=== PATIENT | female | born 1955 | race Two or more races ===

== ENCOUNTER → 2017-12-22 | Outpatient (CLI) | payer OTHER ==
[~2017-12-22] MED LIST: LIDOCAINE 2%/EPI 1:100,000 20 ML VIAL. IJ
== END | disposition home or self-care (01) ==
LOC: US 09:27
DX: N63.20 Unspecified lump in the left breast, unspecified quadrant (principal)
CPT/HCPCS: 76942; 77065; 88305

== ENCOUNTER 2020-11-19 13:30 | Inpatient (IN) | payer OTHER ==
[~2020-11-19] VITALS: Ht 162.6 cm; Wt 92.0 kg
--- NOTE | 2020-11-19 14:02 | PHYS DOC ---
Adult General Chief Complaint Chief Complaint: CHEST PAIN-CARDIAC NATURE HPI HPI Patient is a 64 year old with a past medical history of hypertension, diabetes and hyperlipidemia presents emergency department complaining of new onset of chest pain. Patient states that last evening while she was lying in bed she had a new onset of 3 out of 10 substernal chest pain without any significant radiation. Patient notes that the pain continued today and she felt uneasy sensation and heaviness in her chest Denies any nausea, vomiting, fever, chills, shortness of breath or dizziness. Review of Systems Review of Systems Constitutional: Denies fever or chills [] Eyes: Denies change in visual acuity, redness, or eye pain [] HENT: Denies nasal congestion or sore throat [] Respiratory: Denies cough or shortness of breath [] Cardiovascular: No additional information not addressed in HPI [] GI: Denies abdominal pain, nausea, vomiting, bloody stools or diarrhea [] : Denies dysuria or hematuria [] Musculoskeletal: Denies back pain or joint pain [] Integument: Denies rash or skin lesions [] Neurologic: Denies headache, focal weakness or sensory changes [] Endocrine: Denies polyuria or polydipsia [] All other systems were reviewed and found to be within normal limits, except as documented in this note. Current Medications Current Medications Current Medications Medications (Trade) Dose Ordered Sig/Dennise Start Time Stop Time Status Last Admin Dose Admin Ceftriaxone Sodium (Rocephin) 1 gm 1X ONCE 11/19/20 14:45 11/19/20 14:46 DC 11/19/20 14:44 1 GM Morphine Sulfate (Morphine Sulfate) 4 mg 1X ONCE 11/19/20 14:45 11/19/20 14:46 DC Sodium Chloride 1,000 ml @ 1,000 mls/hr 1X ONCE 11/19/20 14:45 11/19/20 15:44 DC 11/19/20 14:44 1,000 MLS/HR Allergies Allergies Allergies Coded Allergies Type Severity Reaction Last Updated Verified No Known Drug Allergies 11/19/20 No Physical Exam Physical Exam Constitutional: Well developed, well nourished, no acute distress, non-toxic appearance. [] HENT: Normocephalic, atraumatic, bilateral external ears normal, oropharynx moist, no oral exudates, nose normal. [] Eyes: PERRLA, EOMI, conjunctiva normal, no discharge. [] Neck: Normal range of motion, no tenderness, supple, no stridor. [] Cardiovascular:Heart rate regular rhythm, no murmur [] Lungs & Thorax: Bilateral breath sounds clear to auscultation [] Abdomen: Bowel sounds normal, soft, no tenderness, no masses, no pulsatile masses. [] Skin: Warm, dry, no erythema, no rash. [] Back: No tenderness, no CVA tenderness. [] Extremities: No tenderness, no cyanosis, no clubbing, ROM intact, no edema. [] Neurologic: Alert and oriented X 3, normal motor function, normal sensory function, no focal deficits noted. [] Psychologic: Affect normal, judgement normal, mood normal. [] Current Patient Data Vital Signs Vital Signs Date Time Temp Pulse Resp B/P (MAP) Pulse Ox O2 Delivery O2 Flow Rate FiO2 11/19/20 13:35 98.2 93 18 191/97 (128) 100 Room Air 98.2 Lab Values Laboratory Tests Test 11/19/20 13:44 11/19/20 14:28 White Blood Count 18.3 x10^3/uL (4.0-11.0) H Red Blood Count 3.77 x10^6/uL (3.50-5.40) Hemoglobin 10.4 g/dL (12.0-15.5) L Hematocrit 30.7 % (36.0-47.0) L Mean Corpuscular Volume 81 fL (79-100) Mean Corpuscular Hemoglobin 27 pg (25-35) Mean Corpuscular Hemoglobin Concent 34 g/dL (31-37) Red Cell Distribution Width 13.7 % (11.5-14.5) Platelet Count 283 x10^3/uL (140-400) Neutrophils (%) (Auto) 79 % (31-73) H Lymphocytes (%) (Auto) 14 % (24-48) L Monocytes (%) (Auto) 6 % (0-9) Eosinophils (%) (Auto) 1 % (0-3) Basophils (%) (Auto) 0 % (0-3) Neutrophils # (Auto) 14.4 x10^3/uL (1.8-7.7) H Lymphocytes # (Auto) 2.5 x10^3/uL (1.0-4.8) Monocytes # (Auto) 1.0 x10^3/uL (0.0-1.1) Eosinophils # (Auto) 0.2 x10^3/uL (0.0-0.7) Basophils # (Auto) 0.1 x10^3/uL (0.0-0.2) Platelet Estimate Pending Sodium Level 130 mmol/L (136-145) L Potassium Level 4.1 mmol/L (3.5-5.1) Chloride Level 94 mmol/L (98-107) L Carbon Dioxide Level 25 mmol/L (21-32) Anion Gap 11 (6-14) Blood Urea Nitrogen 41 mg/dL (7-20) H Creatinine 3.3 mg/dL (0.6-1.0) H Estimated GFR (Cockcroft-Gault) 14.1 Glucose Level 118 mg/dL (70-99) H Lactic Acid Level 0.5 mmol/L (0.4-2.0) Calcium Level 9.0 mg/dL (8.5-10.1) Magnesium Level 2.7 mg/dL (1.8-2.4) H Troponin I Quantitative < 0.017 ng/mL (0.000-0.055) Lipase 227 U/L (73-393) Procalcitonin < 0.10 ng/mL (0.00-0.10) Urine Collection Type Unknown Urine Color Yellow Urine Clarity Clear Urine pH 7.0 (<5.0-8.0) Urine Specific Stewart <=1.005 (1.000-1.030) Urine Protein 100 mg/dL (NEG-TRACE) Urine Glucose (UA) Negative mg/dL (NEG) Urine Ketones (Stick) Negative mg/dL (NEG) Urine Blood Large (NEG) Urine Nitrite Negative (NEG) Urine Bilirubin Negative (NEG) Urine Urobilinogen Dipstick 0.2 mg/dL (0.2 mg/dL) Urine Leukocyte Esterase Trace (NEG) Urine RBC Tntc /HPF (0-2) Urine WBC 5-10 /HPF (0-4) Urine Squamous Epithelial Cells Few /LPF Urine Bacteria 0 /HPF (0-FEW) Laboratory Tests 11/19/20 13:44 Laboratory Tests 11/19/20 13:44 EKG EKG [] Radiology/Procedures Radiology/Procedures [] Course & Med Decision Making Course & Med Decision Making Pertinent Labs and Imaging studies reviewed. (See chart for details) 64-year-old female presented emergency department with new onset of anterior chest pain. Will obtain ACS rule out and chest x-ray to rule out. Patient's initial work-up was negative for evidence of acute cardiac injury however she did have an elevated creatinine 3.3 and elevated white blood cell count and nitrogen area which is raised concern for urosepsis. I had an extensive discussion with the patient and family member at this time we will plan to admit. Patient is already concerned on antibiotics and given IV fluids. Dragon Disclaimer Dragon Disclaimer This electronic medical record was generated, in whole or in part, using a voice recognition dictation system. Departure Departure Impression: Primary Impression: Acute kidney failure Disposition: ADMITTED INPT THIS HOSP Condition: GUARDED Referrals: JOSE CARTAGENA MD (PCP) ISH MATHEW MD Nov 19, 2020 14:02
[2020-11-19 14:03] LABS: BASO # 0.1 x10^3/uL (0.0-0.2); BASO % 0 % (0-3); EOS # 0.2 x10^3/uL (0.0-0.7); EOS % 1 % (0-3); HEMATOCRIT 30.7 % (36.0-47.0); HEMOGLOBIN 10.4 g/dL (12.0-15.5); LYMPH # 2.5 x10^3/uL (1.0-4.8); LYMPH % 14 % (24-48); MEAN CORPUSCULAR HEMOGLOBIN 27 pg (25-35); MEAN CORPUSCULAR HGB CONC 34 g/dL (31-37); MEAN CORPUSCULAR VOLUME 81 fL (79-100); MONO % 6 % (0-9); NEUT # 14.4 x10^3/uL (1.8-7.7); NEUT % 79 % (31-73); PLATELET COUNT 283 x10^3/uL (140-400); RED BLOOD COUNT 3.77 x10^6/uL (3.50-5.40); RED CELL DISTRIBUTION WIDTH 13.7 % (11.5-14.5); WHITE BLOOD COUNT 18.3 x10^3/uL (4.0-11.0)
[2020-11-19 14:07] LABS: CREATININE 3.3 mg/dL (0.6-1.0); GFR 14.1; POTASSIUM 4.1 mmol/L (3.5-5.1)
[2020-11-19 14:08] LABS: MAGNESIUM 2.7 mg/dL (1.8-2.4)
--- NOTE | 2020-11-19 14:08 | RAD ---
Study: XR CHEST 1V Indication: Chest pain. Comparison: None. Findings: The cardiomediastinal silhouette is enlarged. No overt central vascular congestion. No large effusion or pneumothorax. Mildly increased lung markings but symmetric and favored in part related to broncho vascular crowding from shallow lung volumes. Impression: Enlargement of the cardiomediastinal silhouette. No radiographic manifestations of overt failure/volu me overload. Electronically signed by: ERVIN BUSCH MD (11/19/2020 2:05 PM) [facility]
[2020-11-19 14:40] LABS: BILIRUBIN,URINE NEGATIVE (NEG); CLARITY,URINE CLEAR; COLOR,URINE YELLOW; NITRITE,URINE NEGATIVE (NEG); PROTEIN,URINE 100 mg/dL (NEG-TRACE); UROBILINOGEN,URINE 0.2 mg/dL (0.2 mg/dL)
[2020-11-19] MEDS ORDERED: MORPHINE SULFATE 4 MG/ML VIAL. IV ONE (14:45)
[2020-11-19] MEDS ORDERED: IV NORMAL SALINE 1000ML BAG 1,000 ML IV ONE ×2 (14:45)
[2020-11-19] MEDS ORDERED: cefTRIAXone IV Push 1 GM VIAL. IVP ONE (14:45)
[2020-11-19 14:46] LABS: BACTERIA,URINE 0 /HPF (0-FEW); RBC,URINE TNTC /HPF (0-2)
--- NOTE | 2020-11-19 16:03 | EKG ---
[facility] [address] [place] [address] Test Date: 2020-11-19 Test Time: 13:37:23 Pat Name: SAPPHIRE XIONG Department: Room: Gender: F [employer]: : 1955 Requested By: ISH MATHEW Order Number: [id number] Reading MD: Measurements Intervals Furman Rate: 91 P: 34 NE: 182 QRS: -3 QRSD: 66 T: 34 QT: 358 QTc: 442 Interpretive Statements SINUS RHYTHM LEFTWARD AXIS LOW VOLTAGE ABNORMAL ECG RI6.02 No previous ECG available for comparison
--- NOTE | 2020-11-19 16:55 | RAD ---
Exam: CT of abdomen without contrast INDICATION: Renal stone TECHNIQUE: Sequential axial images through the abdomen and pelvis obtained without IV contrast. Sagit maria ines and coronal reformatted images were reconstructed from the axial data and reviewed. Comparisons: None FINDINGS: Heart size is normal. There is a moderate-sized pericardial effusion. Visualized lung bases are clear . No effusion. Evaluation of solid organs is limited secondary to noncontrast technique. Liver, spleen, pancreas and adrenals are unremarkable. Gallstones in the gallbladder which is otherwi se unremarkable. Vague hypoattenuating lesion at the upper pole of the right kidney measuring approximately 1.6 cm ser ies 3 image 67. No renal or ureteral calculi are identified. There is mild stranding at adjacent to t he left renal pelvis. Bladder is decompressed not well evaluated. Uterus is absent. No abnormal adnexal mass. Large and small bowel are unremarkable. Appendix is normal. No free intra-abdominal air or fluid. Abdominal aorta has a normal course and caliber. No enlarged intra-abdominal lymph nodes. No suspicious osseous lesions or acute fractures. IMPRESSION: 1. Mild stranding adjacent to the left renal pelvis. Correlate with urinalysis for infection. 2. No renal or ureteral calculi. No evidence for obstructive uropathy. 3. Vague mildly hyperattenuating lesion at the upper pole of the right kidney measuring 1.6 cm. Furt her evaluation with nonemergent/outpatient renal protocol CT or MRI is recommended. 4. Moderate-sized Pericardial effusion. Exposure: One or more of the following in the visualized dose reduction techniques were utilized for this examination: 1. Automated exposure control 2. Adjustment of the MA and/or KV according to patient size 3. Use of iterative of reconstructive technique Electronically signed by: Roly Goodman MD (11/19/2020 4:53 PM) [facility]
[2020-11-19] MEDS ORDERED: MORPHINE SULFATE 2 MG/ML VIAL. IV PRN (17:15)
[2020-11-19] MEDS ORDERED: ONDANSETRON PF 4 MG/2 ML VIAL. IV PRN (17:15)
[2020-11-19 17:35] LABS: % EOS 2 % (0-5); % LYMPHS 10 % (24-48); % MONOS 4 % (0-10); % SEGS 84 % (35-66); PLT ESTIMATE ADEQUATE (ADEQUATE)
[2020-11-19 19:00] VITALS: BP 166/74
--- NOTE | 2020-11-19 19:32 | NUR ---
Pt. just arrived from Ed w/ Acute renal failure. Denied any more chest pain. Spouse @ BS in ED. Citizen Of [place] speaking and can make needs known.
[2020-11-20 03:00] VITALS: BP 133/65
[2020-11-20 07:00] VITALS: BP 142/75
[2020-11-20 07:27] LABS: BASO # 0.1 x10^3/uL (0.0-0.2); BASO % 1 % (0-3); EOS # 0.2 x10^3/uL (0.0-0.7); EOS % 1 % (0-3); HEMATOCRIT 28.3 % (36.0-47.0); HEMOGLOBIN 9.3 g/dL (12.0-15.5); LYMPH % 13 % (24-48); MEAN CORPUSCULAR HEMOGLOBIN 27 pg (25-35); MEAN CORPUSCULAR HGB CONC 33 g/dL (31-37); MEAN CORPUSCULAR VOLUME 82 fL (79-100); MONO # 0.9 x10^3/uL (0.0-1.1); MONO % 6 % (0-9); NEUT # 11.7 x10^3/uL (1.8-7.7); NEUT % 79 % (31-73); PLATELET COUNT 286 x10^3/uL (140-400); RED BLOOD COUNT 3.43 x10^6/uL (3.50-5.40); RED CELL DISTRIBUTION WIDTH 13.7 % (11.5-14.5); WHITE BLOOD COUNT 14.8 x10^3/uL (4.0-11.0)
[2020-11-20 07:51] LABS: ALBUMIN 2.6 g/dL (3.4-5.0); ALBUMIN/GLOBULIN RATIO 0.5 (1.0-1.7); CALCIUM 8.6 mg/dL (8.5-10.1); CREATININE 3.5 mg/dL (0.6-1.0); GFR 13.2; POTASSIUM 4.2 mmol/L (3.5-5.1); TOTAL BILIRUBIN 0.3 mg/dL (0.2-1.0)
[2020-11-20 11:00] VITALS: BP 144/73
--- NOTE | 2020-11-20 13:13 | NUR ---
SW following for discharge planning. Spoke with RN and reviewed chart. Pt from home with spouse. Pt currently on room air, regular diet, IV pain medication. Pt self-pay, [facility] is following. Discharge plan is home, self-care. SW following as needed.
--- NOTE | 2020-11-20 13:54 | PDOC1 ---
History and Physical Date of Admission Date of Admission DATE: 11/20/20 TIME: 13:53 Identification/Chief Complaint Chief Complaint Chest pain Source Source: Caregiver, Chart review, Patient History of Present Illness History of Present Illness Ms Ledesma is a 64 yo martiniquais speaking female w/ PMHx HTN, HLD, DM2 who presents to ED C/O chest pressure 3/10 substernal, no radiation while she was laying down on 11/18/20 in the evening. She awoke on 11/19 and it persisted with associated heaviness. She came to ED at the insistence of her family. Patient notes that the pain resolved today but she felt uneasy sensation and heaviness in her chest Denies any nausea, vomiting, fever, chills, shortness of breath or dizziness. No fever or chills. Denies cough, hemoptysis. Does not use NSAIDs, and has been following with [facility] and recently has a new PCP, she is also on Me tformin and Losartan. No history of renal disease to her knowledge but does note a "spot" on her right kidney she has been told about. Patient also states her urine has been darker then normal for the last 2 weeks, no specific dysuria. Noted in ED with lab abnormalities with WBC 18.3, Hb 10.4, platelets 283, NA 130, K4.1, BUN 41, CR 3.3, glucose 118, lipase 0, troponin 0, procalcitonin 0. UA with large blood and positive leukocyte esterase. EKG normal sinus rhythm with a leftward axis. Chest radiograph with increased lung markings. CT abdomen/pelvis mild stranding adjacent to the left renal pelvis, no renal or ureteral calculi. No evidence for obstructive uropathy. Vague mildly hyperattenuating lesion at the upper pole of the right kidney measuring 1.6 cm. Further evaluation with nonemergent/outpatient renal protocol CT or MRI is recommended. Moderate-sized Pericardial effusion. Admitted for further care. Past Medical History Cardiovascular: HTN, Hyperlipidemia Endocrine: Diabetes Past Surgical History Past Surgical History: Hysterectomy Family History Family History: Diabetes Social History Smoke: No ALCOHOL: none Drugs: None Current Problem List Problem List Problems Medical Problems: (1) Acute kidney failure Status: Acute Current Medications Current Medications Current Medications Ceftriaxone Sodium (Rocephin) 1 gm 1X ONCE IVP Last administered on 11/19/20at 14:44; Start 11/19/20 at 14:45; Stop 11/19/20 at 14:46; Status DC Morphine Sulfate (Morphine Sulfate) 4 mg 1X ONCE IV ; Start 11/19/20 at 14:45; Stop 11/19/20 at 14:46; Status DC Sodium Chloride 1,000 ml @ 1,000 mls/hr 1X ONCE IV Last administered on 11/19/20at 14:44; Start 11/19/20 at 14:45; Stop 11/19/20 at 15:44; Status DC Sodium Chloride 1,000 ml @ 1,000 mls/hr 1X ONCE IV Last administered on 11/19/20at 14:44; Start 11/19/20 at 14:45; Stop 11/19/20 at 15:44; Status DC Ondansetron HCl (Zofran) 4 mg PRN Q8HRS PRN IV NAUSEA/VOMITING; Start 11/19/20 at 17:15; Stop 11/20/20 at 17:14 Morphine Sulfate (Morphine Sulfate) 2 mg PRN Q2HR PRN IV PAIN; Start 11/19/20 at 17:15; Stop 11/20/20 at 17:14 Allergies Allergies: Coded Allergies: No Known Drug Allergies (Unverified , 11/19/20) ROS General: YES: Fatigue, Malaise; No: Chills, Night Sweats, Appetite, Other PSYCHOLOGICAL ROS: YES: Anxiety; No: Behavioral Disorder, Concentration difficultie, Decreased libido, Depression, Disorientation, Hallucinations, Hostility, Irritablity, Memory difficulties, Mood Swings, Obsessive thoughts, Physical abuse, Sexual abuse, Sleep disturbances, Suicidal ideation, Other Eyes: No Blurry vision, No Decreased vision, No Double vision, No Dry eyes, No Excessive tearing, No Eye Pain, No Itchy Eyes, No Loss of vision, No Photophobia, No Scotomata, No Uses contacts, No Uses glasses, No Other HEENT: No: Heacaches, Visual Changes, Hearing change, Nasal congestion, Nasal discharge, Oral lesions, Sinus pain, Sore Throat, Epistaxis, Sneezing, Snoring, Tinnitus, Vertigo, Vocal changes, Other ALLERGY AND IMMUNOLOGY: No: Hives, Insect Bite Sensitivity, Itchy/Watery Eyes, Nasal Congestion, Post Nasal Drip, Seasonal Allergies, Other Hematological and Lymphatic: No: Bleeding Problems, Blood Clots, Blood Transfusions, Brusing, Night Sweats, Pallor, Swollen Lymph Nodes, Other ENDOCRINE: No: Breast Changes, Galactorrhea, Hair Pattern Changes, Hot Flashes, Malaise/lethargy, Mood Swings, Palpitations, Polydipsia/polyuria, Skin Changes, Temperature Intolerance, Unexpected Weight Changes, Other Breast: No New/Changing Breast Lumps, No Nipple changes, No Nipple discharge, No Other Respiratory: No: Cough, Hemoptysis, Orthopnea, Pleuritic Pain, Shortness of breath, SOB with excertion, Sputum Changes, Stridor, Tachypnea, Wheezing, Other Cardiovascular: No Chest Pain, No Palpitations, No Orthopnea, No Paroxysmal Noc. Dyspnea, No Edema, No Lt Headedness, No Other Gastrointestinal: No Nausea, No Vomiting, No Abdominal Pain, No Diarrhea, No Constipation, No Melena, No Hematochezia, No Other Genitourinary: No Dysuria, No Frequency, No Incontinence, No Hematuria, No Retention, No Discharge, No Urgency, No Pain, No Flank Pain, No Other, No , No , No , No , No , No , No Musculoskeletal: No Gait Disturbance, No Joint Pain, No Joint Stiffness, No Joint Swelling, No Muscle Pain, No Muscular Weakness, No Pain In:, No Swelling In:, No Other Neurological: No Behavorial Changes, No Bowel/Bladder ControlChng, No Confusion, No Dizziness, No Gait Disturbance, No Headaches, No Impaired Coord/balance, No Memory Loss, No Numbness/Tingling, No Seizures, No Speech Problems, No Tremors, No Visual Changes, No Weakness, No Other Skin: No Dry Skin, No Eczema, No Hair Changes, No Lumps, No Mole Changes, No Mottling, No Nail Changes, No Pruritus, No Rash, No Skin Lesion Changes, No Other, No Acne Physical Exam General: Alert, Oriented X3, Cooperative, No acute distress HEENT: Atraumatic, PERRLA, EOMI, Mucous membr. moist/pink Lungs: Clear to auscultation, Normal air movement Heart: S1S2, RRR, no thrills, no rubs, no gallops, no murmurs Abdomen: Normal bowel sounds, Soft, No tenderness, No hepatosplenomegaly, No masses Rectal Exam: not examined Extremities: No clubbing, No cyanosis, No edema, Normal pulses, No tenderness/swelling Skin: No rashes, No breakdown, No significant lesion Neuro: Normal gait, Normal speech, Strength at 5/5 X4 ext, Normal tone, Sensation intact, Cranial nerves 3-12 NL, Reflexes 2+ Psych/Mental Status: Mental status NL, Mood NL Vitals Vitals Vital Signs Date Time Temp Pulse Resp B/P (MAP) Pulse Ox O2 Delivery O2 Flow Rate FiO2 11/20/20 11:00 98.3 83 18 144/73 (96) 93 Room Air 98.3 Labs Labs Laboratory Tests Test 11/19/20 13:44 11/19/20 14:28 11/19/20 17:12 11/19/20 20:08 White Blood Count 18.3 x10^3/uL (4.0-11.0) Red Blood Count 3.77 x10^6/uL (3.50-5.40) Hemoglobin 10.4 g/dL (12.0-15.5) Hematocrit 30.7 % (36.0-47.0) Mean Corpuscular Volume 81 fL (79-100) Mean Corpuscular Hemoglobin 27 pg (25-35) Mean Corpuscular Hemoglobin Concent 34 g/dL (31-37) Red Cell Distribution Width 13.7 % (11.5-14.5) Platelet Count 283 x10^3/uL (140-400) Neutrophils (%) (Auto) 79 % (31-73) Lymphocytes (%) (Auto) 14 % (24-48) Monocytes (%) (Auto) 6 % (0-9) Eosinophils (%) (Auto) 1 % (0-3) Basophils (%) (Auto) 0 % (0-3) Neutrophils # (Auto) 14.4 x10^3/uL (1.8-7.7) Lymphocytes # (Auto) 2.5 x10^3/uL (1.0-4.8) Monocytes # (Auto) 1.0 x10^3/uL (0.0-1.1) Eosinophils # (Auto) 0.2 x10^3/uL (0.0-0.7) Basophils # (Auto) 0.1 x10^3/uL (0.0-0.2) Segmented Neutrophils % 84 % (35-66) Lymphocytes % 10 % (24-48) Monocytes % 4 % (0-10) Eosinophils % 2 % (0-5) Platelet Estimate Adequate (ADEQUATE) Sodium Level 130 mmol/L (136-145) Potassium Level 4.1 mmol/L (3.5-5.1) Chloride Level 94 mmol/L (98-107) Carbon Dioxide Level 25 mmol/L (21-32) Anion Gap 11 (6-14) Blood Urea Nitrogen 41 mg/dL (7-20) Creatinine 3.3 mg/dL (0.6-1.0) Estimated GFR (Cockcroft-Gault) 14.1 Glucose Level 118 mg/dL (70-99) Lactic Acid Level 0.5 mmol/L (0.4-2.0) Calcium Level 9.0 mg/dL (8.5-10.1) Magnesium Level 2.7 mg/dL (1.8-2.4) Troponin I Quantitative < 0.017 ng/mL (0.000-0.055) < 0.017 ng/mL (0.000-0.055) Lipase 227 U/L (73-393) Procalcitonin < 0.10 ng/mL (0.00-0.10) Urine Collection Type Unknown Urine Color Yellow Urine Clarity Clear Urine pH 7.0 (<5.0-8.0) Urine Specific Henderson <=1.005 (1.000-1.030) Urine Protein 100 mg/dL (NEG-TRACE) Urine Glucose (UA) Negative mg/dL (NEG) Urine Ketones (Stick) Negative mg/dL (NEG) Urine Blood Large (NEG) Urine Nitrite Negative (NEG) Urine Bilirubin Negative (NEG) Urine Urobilinogen Dipstick 0.2 mg/dL (0.2 mg/dL) Urine Leukocyte Esterase Trace (NEG) Urine RBC Tntc /HPF (0-2) Urine WBC 5-10 /HPF (0-4) Urine Squamous Epithelial Cells Few /LPF Urine Bacteria 0 /HPF (0-FEW) Glucose (Fingerstick) 133 mg/dL (70-99) Test 11/20/20 05:45 11/20/20 07:14 11/20/20 11:56 White Blood Count 14.8 x10^3/uL (4.0-11.0) Red Blood Count 3.43 x10^6/uL (3.50-5.40) Hemoglobin 9.3 g/dL (12.0-15.5) Hematocrit 28.3 % (36.0-47.0) Mean Corpuscular Volume 82 fL (79-100) Mean Corpuscular Hemoglobin 27 pg (25-35) Mean Corpuscular Hemoglobin Concent 33 g/dL (31-37) Red Cell Distribution Width 13.7 % (11.5-14.5) Platelet Count 286 x10^3/uL (140-400) Neutrophils (%) (Auto) 79 % (31-73) Lymphocytes (%) (Auto) 13 % (24-48) Monocytes (%) (Auto) 6 % (0-9) Eosinophils (%) (Auto) 1 % (0-3) Basophils (%) (Auto) 1 % (0-3) Neutrophils # (Auto) 11.7 x10^3/uL (1.8-7.7) Lymphocytes # (Auto) 2.0 x10^3/uL (1.0-4.8) Monocytes # (Auto) 0.9 x10^3/uL (0.0-1.1) Eosinophils # (Auto) 0.2 x10^3/uL (0.0-0.7) Basophils # (Auto) 0.1 x10^3/uL (0.0-0.2) Sodium Level 136 mmol/L (136-145) Potassium Level 4.2 mmol/L (3.5-5.1) Chloride Level 102 mmol/L (98-107) Carbon Dioxide Level 25 mmol/L (21-32) Anion Gap 9 (6-14) Blood Urea Nitrogen 39 mg/dL (7-20) Creatinine 3.5 mg/dL (0.6-1.0) Estimated GFR (Cockcroft-Gault) 13.2 BUN/Creatinine Ratio 11 (6-20) Glucose Level 112 mg/dL (70-99) Calcium Level 8.6 mg/dL (8.5-10.1) Total Bilirubin 0.3 mg/dL (0.2-1.0) Aspartate Amino Transf (AST/SGOT) 21 U/L (15-37) Alanine Aminotransferase (ALT/SGPT) 33 U/L (14-59) Alkaline Phosphatase 92 U/L (46-116) Total Protein 8.0 g/dL (6.4-8.2) Albumin 2.6 g/dL (3.4-5.0) Albumin/Globulin Ratio 0.5 (1.0-1.7) Glucose (Fingerstick) 127 mg/dL (70-99) 154 mg/dL (70-99) Laboratory Tests Test 11/19/20 14:28 11/19/20 17:12 11/19/20 20:08 11/20/20 05:45 Urine Collection Type Unknown Urine Color Yellow Urine Clarity Clear Urine pH 7.0 (<5.0-8.0) Urine Specific Henderson <=1.005 (1.000-1.030) Urine Protein 100 mg/dL (NEG-TRACE) Urine Glucose (UA) Negative mg/dL (NEG) Urine Ketones (Stick) Negative mg/dL (NEG) Urine Blood Large (NEG) Urine Nitrite Negative (NEG) Urine Bilirubin Negative (NEG) Urine Urobilinogen Dipstick 0.2 mg/dL (0.2 mg/dL) Urine Leukocyte Esterase Trace (NEG) Urine RBC Tntc /HPF (0-2) Urine WBC 5-10 /HPF (0-4) Urine Squamous Epithelial Cells Few /LPF Urine Bacteria 0 /HPF (0-FEW) Troponin I Quantitative < 0.017 ng/mL (0.000-0.055) Glucose (Fingerstick) 133 mg/dL (70-99) White Blood Count 14.8 x10^3/uL (4.0-11.0) Red Blood Count 3.43 x10^6/uL (3.50-5.40) Hemoglobin 9.3 g/dL (12.0-15.5) Hematocrit 28.3 % (36.0-47.0) Mean Corpuscular Volume 82 fL (79-100) Mean Corpuscular Hemoglobin 27 pg (25-35) Mean Corpuscular Hemoglobin Concent 33 g/dL (31-37) Red Cell Distribution Width 13.7 % (11.5-14.5) Platelet Count 286 x10^3/uL (140-400) Neutrophils (%) (Auto) 79 % (31-73) Lymphocytes (%) (Auto) 13 % (24-48) Monocytes (%) (Auto) 6 % (0-9) Eosinophils (%) (Auto) 1 % (0-3) Basophils (%) (Auto) 1 % (0-3) Neutrophils # (Auto) 11.7 x10^3/uL (1.8-7.7) Lymphocytes # (Auto) 2.0 x10^3/uL (1.0-4.8) Monocytes # (Auto) 0.9 x10^3/uL (0.0-1.1) Eosinophils # (Auto) 0.2 x10^3/uL (0.0-0.7) Basophils # (Auto) 0.1 x10^3/uL (0.0-0.2) Sodium Level 136 mmol/L (136-145) Potassium Level 4.2 mmol/L (3.5-5.1) Chloride Level 102 mmol/L (98-107) Carbon Dioxide Level 25 mmol/L (21-32) Anion Gap 9 (6-14) Blood Urea Nitrogen 39 mg/dL (7-20) Creatinine 3.5 mg/dL (0.6-1.0) Estimated GFR (Cockcroft-Gault) 13.2 BUN/Creatinine Ratio 11 (6-20) Glucose Level 112 mg/dL (70-99) Calcium Level 8.6 mg/dL (8.5-10.1) Total Bilirubin 0.3 mg/dL (0.2-1.0) Aspartate Amino Transf (AST/SGOT) 21 U/L (15-37) Alanine Aminotransferase (ALT/SGPT) 33 U/L (14-59) Alkaline Phosphatase 92 U/L (46-116) Total Protein 8.0 g/dL (6.4-8.2) Albumin 2.6 g/dL (3.4-5.0) Albumin/Globulin Ratio 0.5 (1.0-1.7) Test 11/20/20 07:14 11/20/20 11:56 Glucose (Fingerstick) 127 mg/dL (70-99) 154 mg/dL (70-99) Images Images Chest radiograph: The cardiomediastinal silhouette is enlarged. No overt central vascular congestion. No large effusion or pneumothorax. Mildly increased lung markings but symmetric and favored in part related to bronchovascular crowding from shallow lung volumes. Impression: Enlargement of the cardiomediastinal silhouette. No radiographic manifestations of overt failure/volume overload. CT abdomen/pelvis: Heart size is normal. There is a moderate-sized pericardial effusion. Visualized lung bases are clear. No effusion. Evaluation of solid organs is limited secondary to noncontrast technique. Liver, spleen, pancreas and adrenals are unremarkable. Gallstones in the gallbladder which is otherwise unremarkable. Vague hypoattenuating lesion at the upper pole of the right kidney measuring approximately 1.6 cm series 3 image 67. No renal or ureteral calculi are identified. There is mild stranding at adjacent to the left renal pelvis. Bladder is decompressed not well evaluated. Uterus is absent. No abnormal adnexal mass. Large and small bowel are unremarkable. Appendix is normal. No free intra- abdominal air or fluid. Abdominal aorta has a normal course and caliber. No enlarged intra-abdominal lymph nodes. No suspicious osseous lesions or acute fractures. IMPRESSION: 1. Mild stranding adjacent to the left renal pelvis. Correlate with urinalysis for infection. 2. No renal or ureteral calculi. No evidence for obstructive uropathy. 3. Vague mildly hyperattenuating lesion at the upper pole of the right kidney measuring 1.6 cm. Further evaluation with nonemergent/outpatient renal protocol CT or MRI is recommended. 4. Moderate-sized Pericardial effusion. VTE Prophylaxis Ordered VTE Prophylaxis Devices: No VTE Pharmacological Prophylaxi: Yes Assessment/Plan Assessment/Plan A/P: Chest pain - likely GERD, but with pericardial effusion on CT, will consult cardiology, check echo ALBERTO - likely vasomotor nephropathy. Nephrology consulted. Bladder scan prn, strict I?O . No casts reported in UA, Check Pr/Cr Abnormal UA - with LE, WBCs, left sided stranding, likely pyelonephritis, will give rocephin. IVF. Pain control Hematuria - No renal or ureteral calculi. Likely from UTI, will monitor Right renal lesion at the upper pole of the right kidney measuring 1.6 cm - informed follow up necessary Uncontrolled DM - sliding scale, will hold oral hypoglycemic agents for ALBERTO Anemia -likely of chronic disease HTN - prn antihypertensives Pericardial effusion- moderate reported on CT . Consult cardiology Leukocytosis - with tachycardia, will treat sepsis from UTI FEN - ADA diet PPX - heparin FULL CODE Dispo - inpatient Justifications for Admission Other Justification SHAY ALVES MD Nov 20, 2020 13:54
[2020-11-20] MEDS ORDERED: DEXTROSE 50% 25 GM / 50ML DISP.SYRIN. IV PRN (14:00)
--- NOTE | 2020-11-20 14:23 | PDOC2 ---
CONSULT Date of Consult Date of Consult DATE: 11/20/20 TIME: 14:09 Reason for Consult Reason for Consult: ALBERTO Identification/Chief Complaint Chief Complaint No complaints currently, chest pressure poa Source Source: Caregiver, Chart review, Patient History of Present Illness Reason for Visit: Pt is a 64 yo georgian speaking female, C/O chest pressure -Currently resolved. No SOB. Denies N/V/D. No abdominal pain. No F/C. Denies Cogh, hemoptysis . Denies any rash or joint pains Denies any urinary complaints. No gross hematuria , denies Hx of Kidney stones Denies use of NSAID's OTC meds /health supplements. Reports med for DM was changed recntly. She is also on Metformin and Losartan per her home med list No Fhx of CKD /ESRD or immunological disease. She reports she has never been told that she had any kidney issues . She has been following with [facility] and recently has a new PCP Denies DR, based on recent A1C DM is uncontrolled Past Medical History Past Medical History DM - Uncontrolled HTN Anemia No CAD, denies Dx of CHF, denies Nephrolithiasis Family History Family History Non contributory Social History No ALCOHOL: none Lives: with Family Current Problem List Problem List Problems Medical Problems: (1) Acute kidney failure Status: Acute Current Medications Current Medications Current Medications Ceftriaxone Sodium (Rocephin) 1 gm 1X ONCE IVP Last administered on 11/19/20at 14:44; Start 11/19/20 at 14:45; Stop 11/19/20 at 14:46; Status DC Morphine Sulfate (Morphine Sulfate) 4 mg 1X ONCE IV ; Start 11/19/20 at 14:45; Stop 11/19/20 at 14:46; Status DC Sodium Chloride 1,000 ml @ 1,000 mls/hr 1X ONCE IV Last administered on 11/19/20at 14:44; Start 11/19/20 at 14:45; Stop 11/19/20 at 15:44; Status DC Sodium Chloride 1,000 ml @ 1,000 mls/hr 1X ONCE IV Last administered on 11/19/20at 14:44; Start 11/19/20 at 14:45; Stop 11/19/20 at 15:44; Status DC Ondansetron HCl (Zofran) 4 mg PRN Q8HRS PRN IV NAUSEA/VOMITING; Start 11/19/20 at 17:15; Stop 11/20/20 at 17:14 Morphine Sulfate (Morphine Sulfate) 2 mg PRN Q2HR PRN IV PAIN; Start 11/19/20 at 17:15; Stop 11/20/20 at 17:14 Insulin Human Lispro (HumaLOG) 0-7 UNITS TIDWMEALS SQ ; Start 11/20/20 at 17:00 Dextrose (Dextrose 50%-Water Syringe) 12.5 gm PRN Q15MIN PRN IV SEE COMMENTS; Start 11/20/20 at 14:00 Allergies Allergies: Coded Allergies: No Known Drug Allergies (Unverified , 11/19/20) ROS Review of System As per HPI, rest of the ROS is negative Physical Exam Physical Exam Gen NAD, eating lunch HEEN OM mildly dry, anicteric Neck supple Lungs CTA , non labored CV RRR Abd Obese, NT, soft Neuro AXoX 3 , grossly normal Ext No edema, No cyanosis No wright, No cva or SP tenderness Psych stable mood Vital Signs Vital Signs Date Time Temp Pulse Resp B/P (MAP) Pulse Ox O2 Delivery O2 Flow Rate FiO2 11/20/20 11:00 98.3 83 18 144/73 (96) 93 Room Air 98.3 Assessment & Plan ALBERTO - ATN , Non Oliguric (per patient good uop) Supportive care, IVF , strict I/O, Bladder scan prn . No casts reported in UA, Check Pr/Cr ? UTI UA wbc's +, RBC, esterse + Standing on CT ? Pyelonephritis . management per Primary Micr hematuria - No renal or ureteral calculi. No evidence for obstructive uropathy. lesion at the upper pole of the right kidney measuring 1.6 cm. Further evaluation with nonemergent/outpatient renal protocol CT or MRI is recommended. ? UTI, Uncontrolled DM, monitor DM Uncontrolled - Hold Metformin Anemia- Decreasing Hgb , Elevated Narciso Pena, lambda but Ratio normal, SPEP- No M spike in 2019. Not sure if Fe studies etc done. Defer to primary HTN antihypertensives Pericardial effusion- moderate reported on CT . Consult cardiology Labs Labs Laboratory Tests Test 11/19/20 13:44 11/19/20 14:28 11/19/20 17:12 11/19/20 20:08 White Blood Count 18.3 x10^3/uL (4.0-11.0) Red Blood Count 3.77 x10^6/uL (3.50-5.40) Hemoglobin 10.4 g/dL (12.0-15.5) Hematocrit 30.7 % (36.0-47.0) Mean Corpuscular Volume 81 fL (79-100) Mean Corpuscular Hemoglobin 27 pg (25-35) Mean Corpuscular Hemoglobin Concent 34 g/dL (31-37) Red Cell Distribution Width 13.7 % (11.5-14.5) Platelet Count 283 x10^3/uL (140-400) Neutrophils (%) (Auto) 79 % (31-73) Lymphocytes (%) (Auto) 14 % (24-48) Monocytes (%) (Auto) 6 % (0-9) Eosinophils (%) (Auto) 1 % (0-3) Basophils (%) (Auto) 0 % (0-3) Neutrophils # (Auto) 14.4 x10^3/uL (1.8-7.7) Lymphocytes # (Auto) 2.5 x10^3/uL (1.0-4.8) Monocytes # (Auto) 1.0 x10^3/uL (0.0-1.1) Eosinophils # (Auto) 0.2 x10^3/uL (0.0-0.7) Basophils # (Auto) 0.1 x10^3/uL (0.0-0.2) Segmented Neutrophils % 84 % (35-66) Lymphocytes % 10 % (24-48) Monocytes % 4 % (0-10) Eosinophils % 2 % (0-5) Platelet Estimate Adequate (ADEQUATE) Sodium Level 130 mmol/L (136-145) Potassium Level 4.1 mmol/L (3.5-5.1) Chloride Level 94 mmol/L (98-107) Carbon Dioxide Level 25 mmol/L (21-32) Anion Gap 11 (6-14) Blood Urea Nitrogen 41 mg/dL (7-20) Creatinine 3.3 mg/dL (0.6-1.0) Estimated GFR (Cockcroft-Gault) 14.1 Glucose Level 118 mg/dL (70-99) Lactic Acid Level 0.5 mmol/L (0.4-2.0) Calcium Level 9.0 mg/dL (8.5-10.1) Magnesium Level 2.7 mg/dL (1.8-2.4) Troponin I Quantitative < 0.017 ng/mL (0.000-0.055) < 0.017 ng/mL (0.000-0.055) Lipase 227 U/L (73-393) Procalcitonin < 0.10 ng/mL (0.00-0.10) Urine Collection Type Unknown Urine Color Yellow Urine Clarity Clear Urine pH 7.0 (<5.0-8.0) Urine Specific [place] <=1.005 (1.000-1.030) Urine Protein 100 mg/dL (NEG-TRACE) Urine Glucose (UA) Negative mg/dL (NEG) Urine Ketones (Stick) Negative mg/dL (NEG) Urine Blood Large (NEG) Urine Nitrite Negative (NEG) Urine Bilirubin Negative (NEG) Urine Urobilinogen Dipstick 0.2 mg/dL (0.2 mg/dL) Urine Leukocyte Esterase Trace (NEG) Urine RBC Tntc /HPF (0-2) Urine WBC 5-10 /HPF (0-4) Urine Squamous Epithelial Cells Few /LPF Urine Bacteria 0 /HPF (0-FEW) Glucose (Fingerstick) 133 mg/dL (70-99) Test 11/20/20 05:45 11/20/20 07:14 11/20/20 11:56 White Blood Count 14.8 x10^3/uL (4.0-11.0) Red Blood Count 3.43 x10^6/uL (3.50-5.40) Hemoglobin 9.3 g/dL (12.0-15.5) Hematocrit 28.3 % (36.0-47.0) Mean Corpuscular Volume 82 fL (79-100) Mean Corpuscular Hemoglobin 27 pg (25-35) Mean Corpuscular Hemoglobin Concent 33 g/dL (31-37) Red Cell Distribution Width 13.7 % (11.5-14.5) Platelet Count 286 x10^3/uL (140-400) Neutrophils (%) (Auto) 79 % (31-73) Lymphocytes (%) (Auto) 13 % (24-48) Monocytes (%) (Auto) 6 % (0-9) Eosinophils (%) (Auto) 1 % (0-3) Basophils (%) (Auto) 1 % (0-3) Neutrophils # (Auto) 11.7 x10^3/uL (1.8-7.7) Lymphocytes # (Auto) 2.0 x10^3/uL (1.0-4.8) Monocytes # (Auto) 0.9 x10^3/uL (0.0-1.1) Eosinophils # (Auto) 0.2 x10^3/uL (0.0-0.7) Basophils # (Auto) 0.1 x10^3/uL (0.0-0.2) Sodium Level 136 mmol/L (136-145) Potassium Level 4.2 mmol/L (3.5-5.1) Chloride Level 102 mmol/L (98-107) Carbon Dioxide Level 25 mmol/L (21-32) Anion Gap 9 (6-14) Blood Urea Nitrogen 39 mg/dL (7-20) Creatinine 3.5 mg/dL (0.6-1.0) Estimated GFR (Cockcroft-Gault) 13.2 BUN/Creatinine Ratio 11 (6-20) Glucose Level 112 mg/dL (70-99) Calcium Level 8.6 mg/dL (8.5-10.1) Total Bilirubin 0.3 mg/dL (0.2-1.0) Aspartate Amino Transf (AST/SGOT) 21 U/L (15-37) Alanine Aminotransferase (ALT/SGPT) 33 U/L (14-59) Alkaline Phosphatase 92 U/L (46-116) Total Protein 8.0 g/dL (6.4-8.2) Albumin 2.6 g/dL (3.4-5.0) Albumin/Globulin Ratio 0.5 (1.0-1.7) Glucose (Fingerstick) 127 mg/dL (70-99) 154 mg/dL (70-99) Laboratory Tests Test 11/19/20 14:28 11/19/20 17:12 11/19/20 20:08 11/20/20 05:45 Urine Collection Type Unknown Urine Color Yellow Urine Clarity Clear Urine pH 7.0 (<5.0-8.0) Urine Specific [place] <=1.005 (1.000-1.030) Urine Protein 100 mg/dL (NEG-TRACE) Urine Glucose (UA) Negative mg/dL (NEG) Urine Ketones (Stick) Negative mg/dL (NEG) Urine Blood Large (NEG) Urine Nitrite Negative (NEG) Urine Bilirubin Negative (NEG) Urine Urobilinogen Dipstick 0.2 mg/dL (0.2 mg/dL) Urine Leukocyte Esterase Trace (NEG) Urine RBC Tntc /HPF (0-2) Urine WBC 5-10 /HPF (0-4) Urine Squamous Epithelial Cells Few /LPF Urine Bacteria 0 /HPF (0-FEW) Troponin I Quantitative < 0.017 ng/mL (0.000-0.055) Glucose (Fingerstick) 133 mg/dL (70-99) White Blood Count 14.8 x10^3/uL (4.0-11.0) Red Blood Count 3.43 x10^6/uL (3.50-5.40) Hemoglobin 9.3 g/dL (12.0-15.5) Hematocrit 28.3 % (36.0-47.0) Mean Corpuscular Volume 82 fL (79-100) Mean Corpuscular Hemoglobin 27 pg (25-35) Mean Corpuscular Hemoglobin Concent 33 g/dL (31-37) Red Cell Distribution Width 13.7 % (11.5-14.5) Platelet Count 286 x10^3/uL (140-400) Neutrophils (%) (Auto) 79 % (31-73) Lymphocytes (%) (Auto) 13 % (24-48) Monocytes (%) (Auto) 6 % (0-9) Eosinophils (%) (Auto) 1 % (0-3) Basophils (%) (Auto) 1 % (0-3) Neutrophils # (Auto) 11.7 x10^3/uL (1.8-7.7) Lymphocytes # (Auto) 2.0 x10^3/uL (1.0-4.8) Monocytes # (Auto) 0.9 x10^3/uL (0.0-1.1) Eosinophils # (Auto) 0.2 x10^3/uL (0.0-0.7) Basophils # (Auto) 0.1 x10^3/uL (0.0-0.2) Sodium Level 136 mmol/L (136-145) Potassium Level 4.2 mmol/L (3.5-5.1) Chloride Level 102 mmol/L (98-107) Carbon Dioxide Level 25 mmol/L (21-32) Anion Gap 9 (6-14) Blood Urea Nitrogen 39 mg/dL (7-20) Creatinine 3.5 mg/dL (0.6-1.0) Estimated GFR (Cockcroft-Gault) 13.2 BUN/Creatinine Ratio 11 (6-20) Glucose Level 112 mg/dL (70-99) Calcium Level 8.6 mg/dL (8.5-10.1) Total Bilirubin 0.3 mg/dL (0.2-1.0) Aspartate Amino Transf (AST/SGOT) 21 U/L (15-37) Alanine Aminotransferase (ALT/SGPT) 33 U/L (14-59) Alkaline Phosphatase 92 U/L (46-116) Total Protein 8.0 g/dL (6.4-8.2) Albumin 2.6 g/dL (3.4-5.0) Albumin/Globulin Ratio 0.5 (1.0-1.7) Test 11/20/20 07:14 11/20/20 11:56 Glucose (Fingerstick) 127 mg/dL (70-99) 154 mg/dL (70-99) Review All relevant outside records, renal labs, imaging studies, telemetry/EKG's were reviewed. Images Images Ct abdomen 1. Mild stranding adjacent to the left renal pelvis. Correlate with urinalysis for infection. 2. 4. Moderate-sized Pericardial effusion. DANY HAWTHORNE MD Nov 20, 2020 14:23
[2020-11-20 15:00] VITALS: BP 162/77
--- NOTE | 2020-11-20 16:20 | PDOC2 ---
JACKIE LLANES INSTRUCTIONAL DESIGN SPECIALIST 11/20/20 1620: CARDIAC CONSULT DATE OF CONSULT Date of Consult DATE: 11/20/20 TIME: 16:08 REASON FOR CONSULT Reason for Consult: Pericardial effusion REFERRING PHYSICIAN Referring Physician: Dr. Craig SOURCE Source: Chart review, Patient HISTORY OF PRESENT ILLNESS HISTORY OF PRESENT ILLNESS This is a 64 yo female who presented secondary to chest pain. Reports intermittent stabbing pain in her central chest over the last couple of days. Lasts very briefly and resolved without intervention. No associated shortness of breath, dizziness, diaphoresis, or nausea/vomiting. Initial labs with ALBERTO. No prior reported h/o renal disease. Troponin negative x3. CT chest with pericardial effusion, which prompted this consult. PAST MEDICAL HISTORY Cardiovascular: HTN, Hyperlipidemia Psych: Anxiety Musculoskeletal: Osteoarthritis Endocrine: Diabetes PAST SURGICAL HISTORY Past Surgical History: No pertinent history FAMILY HISTORY Family History: Diabetes SOCIAL HISTORY Smoke: No ALCOHOL: none Drugs: None Lives: with Family ALLERGIES ALLERGIES: Coded Allergies: No Known Drug Allergies (Unverified , 11/19/20) ROS Review of System 14 point ROS conducted with pertinent positives noted above in hPI PHYSICAL EXAM General: Alert, Oriented X3, Cooperative, No acute distress HEENT: Atraumatic Lungs: Clear to auscultation Heart: Regular rate, Other (distant heart tones ) Abdomen: Soft Extremities: Other (1+ bilateral LE edema ) Skin: No significant lesion Neuro: Normal speech, Sensation intact Psych/Mental Status: Mental status NL, Mood NL MUSCULOSKELETAL: Osteoarthritic changes both hands VITALS/I&O VITALS/I&O: Vital Signs Date Time Temp Pulse Resp B/P (MAP) Pulse Ox O2 Delivery O2 Flow Rate FiO2 11/20/20 15:00 98.1 78 18 162/77 (105) 98 Room Air 98.1 I & O 11/19/20 11/19/20 11/20/20 15:00 23:00 07:00 Intake Total 2000 ml Balance 2000 ml LABS Lab: Laboratory Tests Test 11/19/20 17:12 11/19/20 20:08 11/20/20 05:45 11/20/20 07:14 Troponin I Quantitative < 0.017 ng/mL (0.000-0.055) Glucose (Fingerstick) 133 mg/dL (70-99) H 127 mg/dL (70-99) H White Blood Count 14.8 x10^3/uL (4.0-11.0) H Red Blood Count 3.43 x10^6/uL (3.50-5.40) L Hemoglobin 9.3 g/dL (12.0-15.5) L Hematocrit 28.3 % (36.0-47.0) L Mean Corpuscular Volume 82 fL (79-100) Mean Corpuscular Hemoglobin 27 pg (25-35) Mean Corpuscular Hemoglobin Concent 33 g/dL (31-37) Red Cell Distribution Width 13.7 % (11.5-14.5) Platelet Count 286 x10^3/uL (140-400) Neutrophils (%) (Auto) 79 % (31-73) H Lymphocytes (%) (Auto) 13 % (24-48) L Monocytes (%) (Auto) 6 % (0-9) Eosinophils (%) (Auto) 1 % (0-3) Basophils (%) (Auto) 1 % (0-3) Neutrophils # (Auto) 11.7 x10^3/uL (1.8-7.7) H Lymphocytes # (Auto) 2.0 x10^3/uL (1.0-4.8) Monocytes # (Auto) 0.9 x10^3/uL (0.0-1.1) Eosinophils # (Auto) 0.2 x10^3/uL (0.0-0.7) Basophils # (Auto) 0.1 x10^3/uL (0.0-0.2) Sodium Level 136 mmol/L (136-145) Potassium Level 4.2 mmol/L (3.5-5.1) Chloride Level 102 mmol/L (98-107) Carbon Dioxide Level 25 mmol/L (21-32) Anion Gap 9 (6-14) Blood Urea Nitrogen 39 mg/dL (7-20) H Creatinine 3.5 mg/dL (0.6-1.0) H Estimated GFR (Cockcroft-Gault) 13.2 BUN/Creatinine Ratio 11 (6-20) Glucose Level 112 mg/dL (70-99) H Calcium Level 8.6 mg/dL (8.5-10.1) Total Bilirubin 0.3 mg/dL (0.2-1.0) Aspartate Amino Transferase (AST) 21 U/L (15-37) Alanine Aminotransferase (ALT) 33 U/L (14-59) Alkaline Phosphatase 92 U/L (46-116) Total Protein 8.0 g/dL (6.4-8.2) Albumin 2.6 g/dL (3.4-5.0) L Albumin/Globulin Ratio 0.5 (1.0-1.7) L Test 11/20/20 11:56 Glucose (Fingerstick) 154 mg/dL (70-99) H Laboratory Tests 11/20/20 05:45 Laboratory Tests 11/20/20 05:45 ASSESSMENT/PLAN ASSESSMENT/PLAN 1. Chest pain, atypical. AMI ruled out 2. Pericardial effusion; noted moderate per CT. Presently hemodynamically stable. 3. ALBERTO on ? CKD 4. Hypertension; controlled 5. Hyperlipidemia 6. Diabetes, II 7. Leukocytosis, UTI. As per IM 8. Right kidney lesion Recommendations Echo to assess LV systolic function, pericardial effusion Monitor hemodynamics Lipids Hold ARB Avoid nephrotoxins Consider outpatient ischemic evaluation Supportive care Further pending above. KACI STEPHEN MD 11/20/20 1852: CARDIAC CONSULT ASSESSMENT/PLAN ASSESSMENT/PLAN Patient seen and evaluated I agree with our nurse practitioners assessment and plan as above. Chest pain, atypical. AMI ruled out Pericardial effusion; noted moderate per CT. Hemodynamically stable. We will check an echo. ALBERTO on ? CKD Hypertension; controlled Hyperlipidemia Diabetes, II JACKIE LLANES APRN Nov 20, 2020 16:20 KACI STEPHEN MD Nov 20, 2020 18:52
[2020-11-20] MEDS: INSULIN LISPRO 300 UNITS/3 ML VIAL. SQ SCH (17:00)
[2020-11-20] MEDS: cefTRIAXone IV Push 1 GM VIAL. IVP SCH (18:37)
[2020-11-20] MEDS ORDERED: LEVO137T3 PO (18:54)
[2020-11-20] MEDS ORDERED: SITA25TA PO (18:54)
[2020-11-20] MEDS ORDERED: METF10007 PO (18:54)
[2020-11-20] MEDS ORDERED: LOSA100T14 PO (18:54)
[2020-11-20] MEDS ORDERED: HYDR-2145 PO (18:54)
[2020-11-20 19:00] VITALS: BP 169/77
[2020-11-20 23:07] VITALS: BP 153/77
[2020-11-21 03:00] VITALS: BP 146/76
[2020-11-21] MEDS: LEVOTHYROXINE 137 MCG TABLET PO SCH (05:01)
[2020-11-21 07:00] VITALS: BP 147/70
[2020-11-21] MEDS: INSULIN LISPRO 300 UNITS/3 ML VIAL. SQ SCH ×3 (08:00→17:00)
--- NOTE | 2020-11-21 08:13 | PDOC ---
[employer] PROGRESS NOTE Date of Service DOS: DATE: 11/21/20 TIME: 08:13 Chief Complaint Chief Complaint A/P: Chest pain - likely GERD, but with pericardial effusion on CT, will consult cardiology, check echo ALBERTO - likely vasomotor nephropathy. Nephrology consulted. Bladder scan prn, strict I?O . No casts reported in UA, Check Pr/Cr Abnormal UA - with LE, WBCs, left sided stranding, likely pyelonephritis, will give rocephin. IVF. Pain control Hematuria - No renal or ureteral calculi. Likely from UTI, will monitor Right renal lesion at the upper pole of the right kidney measuring 1.6 cm - informed follow up necessary Uncontrolled DM - sliding scale, will hold oral hypoglycemic agents for ALBERTO Anemia -likely of chronic disease HTN - prn antihypertensives Pericardial effusion- moderate reported on CT . Consult cardiology Leukocytosis - with tachycardia, will treat sepsis from UTI FEN - ADA diet PPX - heparin FULL CODE Dispo - inpatient History of Present Illness History of Present Illness Ms Ledesma is a 64 yo albanian speaking female w/ PMHx HTN, HLD, DM2 who presents to ED C/O chest pressure 3/10 substernal, no radiation while she was laying down on 11/18/20 in the evening. She awoke on 11/19 and it persisted with associated heaviness. She came to ED at the insistence of her family. Patient notes that the pain resolved today but she felt uneasy sensation and heaviness in her chest Denies any nausea, vomiting, fever, chills, shortness of breath or dizziness. No fever or chills. Denies cough, hemoptysis. Does not use NSAIDs, and has been following with [place] [facility] and recently has a new PCP, she is also on Metformin and Losartan. No history of renal disease to her knowledge but does note a "spot" on her right kidney she has been told about. Patient also states her urine has been darker then normal for the last 2 weeks, no specific dysuria. Noted in ED with lab abnormalities with WBC 18.3, Hb 10.4, platelets 283, NA 130, K4.1, BUN 41, CR 3.3, glucose 118, lipase 0, troponin 0, procalcitonin 0. UA with large blood and positive leukocyte esterase. EKG normal sinus rhythm with a leftward axis. Chest radiograph with increased lung markings. CT abdomen/pelvis mild stranding adjacent to the left renal pelvis, no renal or ureteral calculi. No evidence for obstructive uropathy. Vague mildly hyperattenuating lesion at the upper pole of the right kidney measuring 1.6 cm. Further evaluation with nonemergent/outpatient renal protocol CT or MRI is recommended. Moderate-sized Pericardial effusion. Admitted for further care. Chest pressure resolved. Good UOP. Unfortunately creatinine stable at 4. I discussed with the family and nephrology the renal biopsy may be indicated this week. Vitals/I&O Vitals/I&O: Vital Signs Date Time Temp Pulse Resp B/P (MAP) Pulse Ox O2 Delivery O2 Flow Rate FiO2 11/21/20 03:00 98.3 79 18 146/76 (99) 100 Room Air 98.3 I & O 11/20/20 11/20/20 11/21/20 15:00 23:00 07:00 Intake Total 120 ml 600 ml Output Total 500 ml Balance 120 ml -500 ml 600 ml Physical Exam General: Alert, Oriented X3, Cooperative, No acute distress Heart: Regular rate, Other (distant heart tones ) Abdomen: Soft Extremities: Other (1+ bilateral LE edema ) Skin: No significant lesion Labs Labs: Laboratory Tests Test 11/20/20 11:56 11/20/20 16:44 11/20/20 20:18 Glucose (Fingerstick) 154 mg/dL (70-99) 141 mg/dL (70-99) 277 mg/dL (70-99) Assessment and Plan Assessmemt and Plan Problems Medical Problems: (1) Acute kidney failure Status: Acute Comment Review of Relevant I have reviewed the following items alexandro (where applicable) has been applied. Medications: Current Medications Medications (Trade) Dose Ordered Sig/Dennise Route PRN Reason Start Time Stop Time Status Last Admin Dose Admin Ceftriaxone Sodium (Rocephin) 1 gm Q24H IVP 11/20/20 16:00 11/20/20 18:37 Levothyroxine Sodium (Synthroid) 137 mcg DAILY06 PO 11/21/20 06:00 11/21/20 05:01 Justifications for Admission Other Justification SHAY ALVES MD Nov 21, 2020 08:13
[2020-11-21] MEDS: LINAGLIPTIN 5 MG TABLET PO SCH (08:22)
[2020-11-21 08:39] LABS: CALCIUM 8.3 mg/dL (8.5-10.1); GFR 11.3
--- NOTE | 2020-11-21 09:16 | PDOC ---
DATE OF SERVICE DATE: 11/21/20 TIME: 09:16 SUBJECTIVE ROS No complaints, sitting up in chair, at bedside OBJECTIVE Vital Signs Vital Signs Date Time Temp Pulse Resp B/P (MAP) Pulse Ox O2 Delivery O2 Flow Rate FiO2 11/21/20 07:00 97.9 78 16 147/70 (95) 98 Room Air 97.9 I & 0 Intake and Output 11/21/20 07:00 Intake Total 720 ml Output Total 500 ml Balance 220 ml Intake Oral 720 ml Output Urine Total 500 ml # Voids 5 PHYSICAL EXAM Physical Exam Gen NAD, eating lunch HEEN OM mildly dry, anicteric Neck supple Lungs CTA , non labored CV RRR Abd Obese, NT, soft Neuro AXoX 3 , grossly normal Ext No edema, No cyanosis No wright, No cva or SP tenderness Psych stable mood DIAGNOSIS/ASSESSMENT Assessment & Plan ALBERTO - ATN vs AIN , Non Oliguric , worsening renal function , currently on Abx for suspected UTI Supportive care, IVF , strict I/O (not sure if accurately recorded) , Bladder scan prn . No casts reported in UA, Check Pr/Cr No Uremic symptoms or signs, E-Lytes stable , Monitor with IVF , repeat UA in am, Keep NPO after midnight for possible renal biopsy tomorrow - if no improvement (Hold ASA /heparin if on any etc ) and possible Dialysis . Discussed with Dr. Carrasco ? UTI UA wbc's +, RBC, esterse + Standing on CT ? Pyelonephritis . Currently on Abx, Ur Cx pending Micr hematuria - No renal or ureteral calculi. No evidence for obstructive uropathy. lesion at the upper pole of the right kidney measuring 1.6 cm. Further evaluation with nonemergent/outpatient renal protocol CT or MRI is recommended. ? UTI, Uncontrolled DM, monitor DM Uncontrolled - Metformin held Anemia- Decreasing Hgb , Elevated [place], lambda but Ratio normal, SPEP- No M spike in 2019. Not sure if Fe studies etc done. Defer to primary HTN antihypertensives Pericardial effusion- moderate reported on CT . Echo pending, cardiology managing COMMENT/RELEVANT DATA Meds Current Medications Medications (Trade) Dose Ordered Sig/Dennise Start Time Stop Time Status Last Admin Dose Admin Ceftriaxone Sodium (Rocephin) 1 gm Q24H 11/20/20 16:00 11/20/20 18:37 1 GM Dextrose (Dextrose 50%-Water Syringe) 12.5 gm PRN Q15MIN PRN 11/20/20 14:00 Insulin Human Lispro (HumaLOG) 0-7 UNITS TIDWMEALS 11/20/20 17:00 Levothyroxine Sodium (Synthroid) 137 mcg DAILY06 11/21/20 06:00 11/21/20 05:01 137 MCG Linagliptin (Tradjenta) 5 mg DAILY 11/21/20 09:00 11/21/20 08:22 5 MG Morphine Sulfate (Morphine Sulfate) 2 mg PRN Q2HR PRN 11/19/20 17:15 11/20/20 17:14 DC Ondansetron HCl (Zofran) 4 mg PRN Q8HRS PRN 11/19/20 17:15 11/20/20 17:14 DC Sodium Chloride 1,000 ml @ 1,000 mls/hr 1X ONCE 11/19/20 14:45 11/19/20 15:44 DC 11/19/20 14:44 1,000 MLS/HR Lab Laboratory Tests Test 11/20/20 11:56 11/20/20 16:44 11/20/20 20:18 11/21/20 07:39 Glucose (Fingerstick) 154 mg/dL (70-99) 141 mg/dL (70-99) 277 mg/dL (70-99) Sodium Level 138 mmol/L (136-145) Potassium Level 4.0 mmol/L (3.5-5.1) Chloride Level 103 mmol/L (98-107) Carbon Dioxide Level 24 mmol/L (21-32) Anion Gap 11 (6-14) Blood Urea Nitrogen 42 mg/dL (7-20) Creatinine 4.0 mg/dL (0.6-1.0) Estimated GFR (Cockcroft-Gault) 11.3 Glucose Level 126 mg/dL (70-99) Calcium Level 8.3 mg/dL (8.5-10.1) Creatine Kinase 103 U/L (26-192) Triglycerides Level 157 mg/dL (0-150) Cholesterol Level 155 mg/dL (0-200) LDL Cholesterol, Calculated 85 mg/dL (0-100) VLDL Cholesterol, Calculated 31 mg/dL (0-40) Non-HDL Cholesterol Calculated 116 mg/dL (0-129) HDL Cholesterol 39 mg/dL (40-60) Cholesterol/HDL Ratio 4.0 Thyroid Stimulating Hormone (TSH) 2.783 uIU/mL (0.358-3.74) Test 11/21/20 08:10 Glucose (Fingerstick) 125 mg/dL (70-99) Results All relevant outside records, renal labs, imaging studies, telemetry/EKG's were reviewed. Justicifation of Admission Dx: Justifications for Admission: Justification of Admission Dx: Yes Acute Renal Failure: 3-Fold Rise in Serum Crea DANY HAWTHORNE MD Nov 21, 2020 09:16
[2020-11-21 11:00] VITALS: BP 152/69
--- NOTE | 2020-11-21 11:38 | NUR ---
SW following for discharge planning. Spoke with RN and reviewed chart. Pt started on IV Rocephin. Pt NPO. Pt not ready for discharge. Discharge plan remains home, self-care. SW following.
[2020-11-21] MEDS: IV NORMAL SALINE 1000ML BAG 1,000 ML IV SCH (11:58)
--- NOTE | 2020-11-21 11:58 | CARD ---
MR#: [id number] Date of Study: 11/20/2020 Ordering Physician: JACKIE LLANES, Referring Physician: JACKIE LLANES, Tech: Mary Christianson APPROVED REPORT EXAM: Two-dimensional and M-mode echocardiogram with Doppler and color Doppler. Other Information Quality : GoodHR: 84bpm INDICATION Pericardial Effusion Chest Pain RISK FACTORS Hypertension Hyperlipidemia Diabetes 2D DIMENSIONS RVDd2.8 (2.9-3.5cm)Left Atrium(2D)3.1 (1.6-4.0cm) IVSd1.1 (0.7-1.1cm)Aortic Root(2D)2.9 (2.0-3.7cm) LVDd4.9 (3.9-5.9cm)LVOT Diameter2.0 (1.8-2.4cm) PWd1.0 (0.7-1.1cm)LVDs2.8 (2.5-4.0cm) FS (%) 42.9 %SV82.3 ml LVEF(%)73.9 (>50%) Aortic Valve AoV Peak Sal.159.5cm/sAoV VTI32.4cm AO Peak GR.10.2mmHgLVOT Peak Sal.142.8cm/s LVOT VTI 32.00cmAO Mean GR.5mmHg EMILIANO (VMAX)2.40hr2CHS (VTI)2.98cm2 Mitral Valve MV E Vohpixze640.4cm/sMV DECEL NYGO295jq MV A Hmgyxbmq160.3cm/sMV E Mean Gr.4mmHg MV ODQ07axA/A Ratio1.2 MVA (PHT)2.98cm2 TDI E/Lateral E'15.7E/Medial E'13.7 Pulmonary Valve PV Peak Lbsvcepq55.7cm/sPV Peak Grad.3mmHg Tricuspid Valve TR P. Wsvnxukt200az/sRAP JEHNNWIZ2phWo TR Peak Gr.92wtSpZNXQ29lzDc Pulmonary Vein S1 Nacjjspl22.2cm/sD2 Hrittpjx47.7cm/s LEFT VENTRICLE The left ventricle is normal size. There is borderline concentric left ventricular hypertrophy. The l eft ventricular systolic function is normal. The Ejection Fraction is 55-60%. There is normal LV segm ental wall motion. Transmitral Doppler flow pattern is Grade II-pseudonormal filling dynamics. RIGHT VENTRICLE The right ventricle is normal size. There is normal right ventricular wall thickness. The right ventr icular systolic function is normal. ATRIA The left atrium size is normal. The right atrium size is normal. The interatrial septum is intact wit h no evidence for an atrial septal defect or patent foramen ovale as noted on 2-D or Doppler imaging. AORTIC VALVE The aortic valve is normal in structure and function. Doppler and Color Flow revealed trace aortic re gurgitation. There is no significant aortic valvular stenosis. Calculated aortic valve area is 2.80 c m2 with maximum pressure gradient of 11 mmHg and mean pressure gradient of 6 mmHg. MITRAL VALVE The mitral valve is normal in structure and function. There is no evidence of mitral valve prolapse. There is no mitral valve stenosis. Doppler and Color-flow revealed trace mitral regurgitation. TRICUSPID VALVE The tricuspid valve is normal in structure and function. Doppler and Color Flow revealed trace tricus pid regurgitation with an estimated PAP of 32 mmHg. There is no tricuspid valve stenosis. PULMONIC VALVE The pulmonic valve is not well visualized. Doppler and Color Flow revealed trace pulmonic valvular re gurgitation. GREAT VESSELS The aortic root is normal in size. The ascending aorta is normal in size. The IVC is normal in size a nd collapses >50% with inspiration. PERICARDIAL EFFUSION There is a moderate circumferential pericardial effusion. Critical Notification Critical Value: No <Conclusion> The left ventricular systolic function is normal. The Ejection Fraction is 55-60%. There is normal LV segmental wall motion. Transmitral Doppler flow pattern is Grade II-pseudonormal filling dynamics. Trace mitral regurgitation. Trace tricuspid regurgitation with an estimated PAP of 32 mmHg. There is a moderate circumferential pericardial effusion. Signed by : Sachin Davalos, Electronically Approved : 11/21/2020 11:58:08
[2020-11-21 14:25] LABS: BILIRUBIN,URINE NEGATIVE (NEG); CLARITY,URINE CLEAR; COLOR,URINE YELLOW; NITRITE,URINE NEGATIVE (NEG); PH,URINE 6.5 (<5.0-8.0); PROTEIN,URINE 100 mg/dL (NEG-TRACE); UROBILINOGEN,URINE 0.2 mg/dL (0.2 mg/dL)
[2020-11-21 14:38] LABS: CREATININE,RANDOM URINE 28.1 mg/dL (Not Establ.)
[2020-11-21 14:50] LABS: BACTERIA,URINE FEW /HPF (0-FEW); RBC,URINE >40 /HPF (0-2)
[2020-11-21 15:00] VITALS: BP 140/72
--- NOTE | 2020-11-21 15:11 | PDOC ---
CARDIO Progress Notes Date and Time Date of Service 11/21/2020 Time of Evaluation 1140 Subjective Subjective: No Chest Pain, No shortness of breath, No Palpitations Vitals Vitals Vital Signs Date Time Temp Pulse Resp B/P (MAP) Pulse Ox O2 Delivery O2 Flow Rate FiO2 11/21/20 11:00 97.7 77 18 152/69 (96) 97 Room Air 97.7 Weight Weight [ ] Input and Output Intake and Output Intake and Output 11/21/20 07:00 Intake Total 720 ml Output Total 500 ml Balance 220 ml Intake Oral 720 ml Output Urine Total 500 ml # Voids 5 Laboratory Labs Laboratory Tests Test 11/20/20 16:44 11/20/20 20:18 11/21/20 07:39 11/21/20 08:10 Glucose (Fingerstick) 141 mg/dL (70-99) 277 mg/dL (70-99) 125 mg/dL (70-99) Sodium Level 138 mmol/L (136-145) Potassium Level 4.0 mmol/L (3.5-5.1) Chloride Level 103 mmol/L (98-107) Carbon Dioxide Level 24 mmol/L (21-32) Anion Gap 11 (6-14) Blood Urea Nitrogen 42 mg/dL (7-20) Creatinine 4.0 mg/dL (0.6-1.0) Estimated GFR (Cockcroft-Gault) 11.3 Glucose Level 126 mg/dL (70-99) Calcium Level 8.3 mg/dL (8.5-10.1) Creatine Kinase 103 U/L (26-192) Triglycerides Level 157 mg/dL (0-150) Cholesterol Level 155 mg/dL (0-200) LDL Cholesterol, Calculated 85 mg/dL (0-100) VLDL Cholesterol, Calculated 31 mg/dL (0-40) Non-HDL Cholesterol Calculated 116 mg/dL (0-129) HDL Cholesterol 39 mg/dL (40-60) Cholesterol/HDL Ratio 4.0 Thyroid Stimulating Hormone (TSH) 2.783 uIU/mL (0.358-3.74) Test 11/21/20 12:04 11/21/20 13:52 Glucose (Fingerstick) 156 mg/dL (70-99) Urine Collection Type Unknown Urine Color Yellow Urine Clarity Clear Urine pH 6.5 (<5.0-8.0) Urine Specific [place] <=1.005 (1.000-1.030) Urine Protein 100 mg/dL (NEG-TRACE) Urine Glucose (UA) Negative mg/dL (NEG) Urine Ketones (Stick) Negative mg/dL (NEG) Urine Blood Large (NEG) Urine Nitrite Negative (NEG) Urine Bilirubin Negative (NEG) Urine Urobilinogen Dipstick 0.2 mg/dL (0.2 mg/dL) Urine Leukocyte Esterase Small (NEG) Urine RBC >40 /HPF (0-2) Urine WBC 1-4 /HPF (0-4) Urine Squamous Epithelial Cells Mod /LPF Urine Renal Epithelial Cells Few /LPF Urine Bacteria Few /HPF (0-FEW) Urine Random Creatinine 28.1 mg/dL (Not Establ.) Urine Random Total Protein 153.5 mg/dL (Not Establ.) Urine Protein/Creatinine Ratio 5463 mg/g (0-200) Microbiology Micro Microbiology 11/19/20 Blood Culture - Preliminary, Resulted NO GROWTH AFTER 1 DAY Physical Exam HEENT: Neck Supple W Full Motion Chest: Symmetric LUNGS: Clear to Auscultation Heart: S1S2, RRR (SR) Abdomen: Soft N/T, Other (obese) Extremities: No Edema, No Calf Tenderness Neurology: alert, oriented, follow commands Assessment Assessment 1. Atypical chest pain: trops nml. EKG SR without acute changes. Possibly pleuritic vs from high BP 2. Pericardial effusion: moderate circumferential per TTE. EF and WM nml. No hemodynamic compromise. Differentials include uremia, recent viral infection 3. Severe ALBERTO: possible renal biopsy tomorrow. 4. HTN urgency: mildly elevated. 5. Hyperlipidemia 6. Diabetes, II 7. Leukocytosis, UTI. As per IM 8. Right kidney lesion 9. Normocytic Anemia 10. Hypothyroidism: on replacement Recommendations No ACEi/ARB. Hydralazine IV PRN for now. Will reeval need pending BP trend. Avoid nephrotoxins Consider outpatient ischemic evaluation. Follow up limited TTE in 3-4 weeks prior to follow up Supportive care Further pending above. Justicifation of Admission Dx: Justifications for Admission: Justification of Admission Dx: Yes Acute Renal Failure: 3-Fold Rise in Serum Crea BRITTANI HUITRON QUEEN'S COUNSEL Nov 21, 2020 15:11
[2020-11-21] MEDS: cefTRIAXone IV Push 1 GM VIAL. IVP SCH (16:04)
[2020-11-21 19:00] VITALS: BP 152/74
[2020-11-21] MEDS: LACTOBACILLUS RHAMNOSUS GG 1 CAPSULE. PO SCH (21:58)
[2020-11-21 23:00] VITALS: BP 162/81
[2020-11-22] VITALS (18 sets, daily range): BP systolic 131–201; BP diastolic 60–95
[2020-11-22] MEDS: IV NORMAL SALINE 1000ML BAG 1,000 ML IV SCH ×2 (00:52→15:04)
[2020-11-22] MEDS: LEVOTHYROXINE 137 MCG TABLET PO SCH (05:23)
--- NOTE | 2020-11-22 07:18 | PDOC ---
[facility] PROGRESS NOTE Date of Service DOS: DATE: 11/22/20 TIME: 07:17 Chief Complaint Chief Complaint A/P: Chest pain - likely GERD, but with pericardial effusion on CT, will consult cardiology, check echo ALBERTO - likely vasomotor nephropathy. Nephrology consulted. Bladder scan prn, strict I?O . No casts reported in UA, Check Pr/Cr Abnormal UA - with LE, WBCs, left sided stranding, likely pyelonephritis, will give rocephin. IVF. Pain control Hematuria - No renal or ureteral calculi. Likely from UTI, will monitor Right renal lesion at the upper pole of the right kidney measuring 1.6 cm - informed follow up necessary Uncontrolled DM - sliding scale, will hold oral hypoglycemic agents for ALBERTO Anemia -likely of chronic disease HTN - prn antihypertensives Pericardial effusion- moderate reported on CT . Consult cardiology Leukocytosis - with tachycardia, will treat sepsis from UTI FEN - ADA diet PPX - heparin FULL CODE Dispo - inpatient History of Present Illness History of Present Illness Ms Ledesma is a 64 yo amharic speaking female w/ PMHx HTN, HLD, DM2 who presents to ED C/O chest pressure 3/10 substernal, no radiation while she was laying down on 11/18/20 in the evening. She awoke on 11/19 and it persisted with associated heaviness. She came to ED at the insistence of her family. Patient notes that the pain resolved today but she felt uneasy sensation and heaviness in her chest Denies any nausea, vomiting, fever, chills, shortness of breath or dizziness. No fever or chills. Denies cough, hemoptysis. Does not use NSAIDs, and has been following with [facility] and recently has a new PCP, she is also on Metformin and Losartan. No history of renal disease to her knowledge but does note a "spot" on her right kidney she has been told about. Patient also states her urine has been darker then normal for the last 2 weeks, no specific dysuria. Noted in ED with lab abnormalities with WBC 18.3, Hb 10.4, platelets 283, NA 130, K4.1, BUN 41, CR 3.3, glucose 118, lipase 0, troponin 0, procalcitonin 0. UA with large blood and positive leukocyte esterase. EKG normal sinus rhythm with a leftward axis. Chest radiograph with increased lung markings. CT abdomen/pelvis mild stranding adjacent to the left renal pelvis, no renal or ureteral calculi. No evidence for obstructive uropathy. Vague mildly hyperattenuating lesion at the upper pole of the right kidney measuring 1.6 cm. Further evaluation with nonemergent/outpatient renal protocol CT or MRI is recommended. Moderate-sized Pericardial effusion noted on CT, confirmed on echocardiogram. Consults; nephrology and cardiology 11/21: Chest pressure resolved. Good UOP. Cr at 4. D/w family and nephrology the renal biopsy may be indicated this week. JOB, ANCA, Anti-GBM pending Afebrile. CR 4.3 and BUN up to 44, phosphorus 5.1. Still with microscopic hematuria. Discussed with nephrology and patient and family via radio station operator it is important to undergo renal biopsy today to have plan for further treatment and also prepare for dialysis. Vitals/I&O Vitals/I&O: Vital Signs Date Time Temp Pulse Resp B/P (MAP) Pulse Ox O2 Delivery O2 Flow Rate FiO2 11/22/20 03:00 98.5 83 20 131/77 (95) 99 Room Air 98.5 I & O 11/21/20 11/21/20 11/22/20 15:00 23:00 07:00 Intake Total 300 ml 200 ml Output Total 400 ml Balance -400 ml 300 ml 200 ml Physical Exam General: Alert, Oriented X3, Cooperative, No acute distress Heart: Regular rate, Other (distant heart tones ) Abdomen: Soft Extremities: Other (1+ bilateral LE edema ) Skin: No significant lesion Labs Labs: Laboratory Tests Test 11/21/20 07:39 11/21/20 08:10 11/21/20 12:04 11/21/20 13:52 Sodium Level 138 mmol/L (136-145) Potassium Level 4.0 mmol/L (3.5-5.1) Chloride Level 103 mmol/L (98-107) Carbon Dioxide Level 24 mmol/L (21-32) Anion Gap 11 (6-14) Blood Urea Nitrogen 42 mg/dL (7-20) Creatinine 4.0 mg/dL (0.6-1.0) Estimated GFR (Cockcroft-Gault) 11.3 Glucose Level 126 mg/dL (70-99) Calcium Level 8.3 mg/dL (8.5-10.1) Creatine Kinase 103 U/L (26-192) Triglycerides Level 157 mg/dL (0-150) Cholesterol Level 155 mg/dL (0-200) LDL Cholesterol, Calculated 85 mg/dL (0-100) VLDL Cholesterol, Calculated 31 mg/dL (0-40) Non-HDL Cholesterol Calculated 116 mg/dL (0-129) HDL Cholesterol 39 mg/dL (40-60) Cholesterol/HDL Ratio 4.0 Thyroid Stimulating Hormone (TSH) 2.783 uIU/mL (0.358-3.74) Glucose (Fingerstick) 125 mg/dL (70-99) 156 mg/dL (70-99) Urine Collection Type Unknown Urine Color Yellow Urine Clarity Clear Urine pH 6.5 (<5.0-8.0) Urine Specific [place] <=1.005 (1.000-1.030) Urine Protein 100 mg/dL (NEG-TRACE) Urine Glucose (UA) Negative mg/dL (NEG) Urine Ketones (Stick) Negative mg/dL (NEG) Urine Blood Large (NEG) Urine Nitrite Negative (NEG) Urine Bilirubin Negative (NEG) Urine Urobilinogen Dipstick 0.2 mg/dL (0.2 mg/dL) Urine Leukocyte Esterase Small (NEG) Urine RBC >40 /HPF (0-2) Urine WBC 1-4 /HPF (0-4) Urine Squamous Epithelial Cells Mod /LPF Urine Renal Epithelial Cells Few /LPF Urine Bacteria Few /HPF (0-FEW) Urine Eosinophils Eos not observed Urine Random Creatinine 28.1 mg/dL (Not Establ.) Urine Random Total Protein 153.5 mg/dL (Not Establ.) Urine Protein/Creatinine Ratio 5463 mg/g (0-200) Test 11/21/20 17:18 11/21/20 22:00 Glucose (Fingerstick) 151 mg/dL (70-99) 188 mg/dL (70-99) Assessment and Plan Assessmemt and Plan Problems Medical Problems: (1) Acute kidney failure Status: Acute Comment Review of Relevant I have reviewed the following items alexandro (where applicable) has been applied. Medications: Current Medications Medications (Trade) Dose Ordered Sig/Dennise Route PRN Reason Start Time Stop Time Status Last Admin Dose Admin Linagliptin (Tradjenta) 5 mg DAILY PO 11/21/20 09:00 11/21/20 08:22 Sodium Chloride 1,000 ml @ 75 mls/hr [id number] IV 11/21/20 11:30 11/22/20 00:52 Lactobacillus Rhamnosus (Culturelle) 1 cap BID PO 11/21/20 21:00 11/21/20 21:58 Justifications for Admission Other Justification SHAY ALVES MD Nov 22, 2020 07:18
[2020-11-22 07:50] LABS: ALBUMIN 2.8 g/dL (3.4-5.0); CALCIUM 8.8 mg/dL (8.5-10.1); CREATININE 4.3 mg/dL (0.6-1.0); GFR 10.4; PHOSPHORUS 5.1 mg/dL (2.6-4.7)
[2020-11-22] MEDS: INSULIN LISPRO 300 UNITS/3 ML VIAL. SQ SCH ×3 (08:00→17:00)
[2020-11-22] MEDS: LACTOBACILLUS RHAMNOSUS GG 1 CAPSULE. PO SCH ×2 (09:00→21:20)
[2020-11-22] MEDS: LINAGLIPTIN 5 MG TABLET PO SCH (09:00)
--- NOTE | 2020-11-22 09:37 | PDOC ---
DATE OF SERVICE DATE: 11/22/20 TIME: 09:36 SUBJECTIVE ROS No complaints, at bedside OBJECTIVE Vital Signs Vital Signs Date Time Temp Pulse Resp B/P (MAP) Pulse Ox O2 Delivery O2 Flow Rate FiO2 11/22/20 07:00 98.2 77 17 149/79 (102) 97 Room Air 98.2 I & 0 Intake and Output 11/22/20 07:00 Intake Total 500 ml Output Total 400 ml Balance 100 ml Intake Oral 500 ml Output Urine Total 400 ml # Voids 3 PHYSICAL EXAM Physical Exam Gen NAD HEEN anicteric , on RA Neck supple Lungs CTA , non labored CV RRR Abd Obese, NT, soft Neuro AXoX 3 , grossly normal Ext No edema, No cyanosis No wright, No cva or SP tenderness DIAGNOSIS/ASSESSMENT Assessment & Plan ALBERTO - ATN vs AIN ,r/o GN - REnal Bx today , Non Oliguric (UOP not accurately recorded) , worsening renal function(? Plateau) , currently on Abx for suspected UTI Supportive care, IVF , strict I/O ( Bladder scan prn . No casts reported in UA, will start Hemodialysis as no improvement , Ordered Temp HDC placement No Uremic symptoms or signs, E-Lytes stable Proteinuria- Nephrotic with Micr heamturia. Renal Bx today (Further serologies will be ordered ) Micr hematuria - No renal or ureteral calculi. No evidence for obstructive uropathy. lesion at the upper pole of the right kidney measuring 1.6 cm. Further evaluation with nonemergent/outpatient renal protocol CT or MRI is recommended. ? UTI, Uncontrolled DM, monitor ., R/O GN. DM Uncontrolled - Metformin held Anemia- Decreasing Hgb , Elevated [place], lambda but Ratio normal, SPEP- No M spike in 2019. Not sure if Fe studies etc done. Defer to primary HTN antihypertensives Pericardial effusion- moderate reported on CT . Echo shows Moderate pericardial effusion Discussed with Pt at great length thru patrol sergeant , Discussed with Nursing as well COMMENT/RELEVANT DATA Meds Current Medications Medications (Trade) Dose Ordered Sig/Dennise Start Time Stop Time Status Last Admin Dose Admin Ceftriaxone Sodium (Rocephin) 1 gm Q24H 11/20/20 16:00 11/21/20 16:04 1 GM Dextrose (Dextrose 50%-Water Syringe) 12.5 gm PRN Q15MIN PRN 11/20/20 14:00 Insulin Human Lispro (HumaLOG) 0-7 UNITS TIDWMEALS 11/20/20 17:00 11/21/20 12:16 3 UNITS Lactobacillus Rhamnosus (Culturelle) 1 cap BID 11/21/20 21:00 11/21/20 21:58 1 CAP Levothyroxine Sodium (Synthroid) 137 mcg DAILY06 11/21/20 06:00 11/22/20 05:23 137 MCG Linagliptin (Tradjenta) 5 mg DAILY 11/21/20 09:00 11/21/20 08:22 5 MG Morphine Sulfate (Morphine Sulfate) 2 mg PRN Q2HR PRN 11/19/20 17:15 11/20/20 17:14 DC Ondansetron HCl (Zofran) 4 mg PRN Q8HRS PRN 11/19/20 17:15 11/20/20 17:14 DC Sodium Chloride 1,000 ml @ 75 mls/hr [id number] 11/21/20 11:30 11/22/20 00:52 75 MLS/HR Lab Laboratory Tests Test 11/21/20 12:04 11/21/20 13:52 11/21/20 17:18 11/21/20 22:00 Glucose (Fingerstick) 156 mg/dL (70-99) 151 mg/dL (70-99) 188 mg/dL (70-99) Urine Collection Type Unknown Urine Color Yellow Urine Clarity Clear Urine pH 6.5 (<5.0-8.0) Urine Specific [place] <=1.005 (1.000-1.030) Urine Protein 100 mg/dL (NEG-TRACE) Urine Glucose (UA) Negative mg/dL (NEG) Urine Ketones (Stick) Negative mg/dL (NEG) Urine Blood Large (NEG) Urine Nitrite Negative (NEG) Urine Bilirubin Negative (NEG) Urine Urobilinogen Dipstick 0.2 mg/dL (0.2 mg/dL) Urine Leukocyte Esterase Small (NEG) Urine RBC >40 /HPF (0-2) Urine WBC 1-4 /HPF (0-4) Urine Squamous Epithelial Cells Mod /LPF Urine Renal Epithelial Cells Few /LPF Urine Bacteria Few /HPF (0-FEW) Urine Eosinophils Eos not observed Urine Random Creatinine 28.1 mg/dL (Not Establ.) Urine Random Total Protein 153.5 mg/dL (Not Establ.) Urine Protein/Creatinine Ratio 5463 mg/g (0-200) Test 11/22/20 06:58 Sodium Level 138 mmol/L (136-145) Potassium Level 4.0 mmol/L (3.5-5.1) Chloride Level 102 mmol/L (98-107) Carbon Dioxide Level 24 mmol/L (21-32) Anion Gap 12 (6-14) Blood Urea Nitrogen 44 mg/dL (7-20) Creatinine 4.3 mg/dL (0.6-1.0) Estimated GFR (Cockcroft-Gault) 10.4 Glucose Level 146 mg/dL (70-99) Calcium Level 8.8 mg/dL (8.5-10.1) Phosphorus Level 5.1 mg/dL (2.6-4.7) Albumin 2.8 g/dL (3.4-5.0) Results All relevant outside records, renal labs, imaging studies, telemetry/EKG's were reviewed. Justicifation of Admission Dx: Justifications for Admission: Justification of Admission Dx: Yes Acute Renal Failure: 3-Fold Rise in Serum Auraa DANY HAWTHORNE MD Nov 22, 2020 09:37
[2020-11-22 10:01] LABS: PROTHROMBIN TIME PATIENT 14.2 SEC (11.7-14.0)
--- NOTE | 2020-11-22 13:10 | NUR ---
SW following for discharge planning. Spoke with RN and reviewed chart. Pt remains on IV Rocephin and NPO. Rapid COVID result came back positive. Pt transferred to 6S. This SW to continue following. Pt not ready for discharge. Discharge plan remains home, self-care. SW following.
[2020-11-22] MEDS ORDERED: LIDOCAINE WITH 8.4% SOD BICARB 3 ML DISP.SYRIN. ONE (14:08)
[2020-11-22] MEDS ORDERED: GELATIN SPONGE SIZE 12-7MM SPONGE. ONE (14:09)
[2020-11-22] MEDS ORDERED: fentaNYL PF VIAL 100 MCG/2 ML VIAL ONE (14:15)
[2020-11-22] MEDS ORDERED: MIDAZOLAM HCL/PF 2 MG/2 ML VIAL. ONE (14:15)
[2020-11-22] MEDS ORDERED: NALOXONE 0.4 MG/ML VIAL. ONE (14:15)
[2020-11-22] MEDS ORDERED: FLUMAZENIL 0.5 MG/5 ML VIAL. IV ONE (14:15)
[2020-11-22] MEDS ORDERED: LIDOCAINE WITH 8.4% SOD BICARB 3 ML DISP.SYRIN. INJ ONE (14:30)
[2020-11-22] MEDS ORDERED: hydrALAZINE 20 MG/ML VIAL. IVP ONE (15:00)
--- NOTE | 2020-11-22 15:29 | PDOC ---
MODERATE SEDATION ASSESSMENT RISKS/ALTERNATIVES Risks/Alternatives Risks and alternatives of this type of sedation and procedure discussed with: RISK/ALTERNATIVES: Patient H & P ON CHART H & P H & P on chart and reviewed for co-morbid conditions and appropriate labs. H&P ON CHART: Yes STATUS PREG STATUS ASSESSED: Yes MEDS/ALLERGIES REVIEWED Meds/Allergies Reviewed Medications and Allergies including time and route of recently administered narcotics and sedatives. MEDS/ALLERGIES REVIEWED: Yes ASA RATING ASA RATING: III AIRWAY ASSESSMENT Airway Assessment Airway patency, oral function limitations, presence of caps, crowns, dentures, partials, and ability to extend neck assessed. AIRWAY ASSESSMENT: Yes MALLAMPATI SCORE MALLAMPATI SCORE: II PRE-SEDATION ASSESSMENT PRE-SEDATION ASSESSMENT: Yes VENKAT RAVI MD Nov 22, 2020 15:29
[2020-11-22] MEDS ORDERED: MIDAZOLAM HCL/PF 2 MG/2 ML VIAL. IV ONE (15:30)
[2020-11-22] MEDS ORDERED: fentaNYL PF VIAL 100 MCG/2 ML VIAL IV ONE (15:30)
[2020-11-22] MEDS ORDERED: GELATIN SPONGE SIZE 12-7MM SPONGE. TP ONE (15:30)
--- NOTE | 2020-11-22 15:31 | PDOC ---
Exam Cut Plug Packer Cut Plug Packer Celi Music Educator Music Educator Christopher Pre-Procedure Diagnosis Pre-Procedure Diagnosis Renal failure Post-Procedure Diagnosis Post-Procedure Diagnosis Same Procedure Performed Procedure Performed Placement of right IJ temp dialysis cath Left renal biopsy Type of Anesthesia Type of Anesthesia Mod Sed Estimated Blood Loss EBL: 10 Specimens Specimans Renal core biopsies Drain/Tubes Drains/Tubes 15 cm right IJ temp dialysis cath Condition of Patient Condition of Patient Stable Disposition Disposition In room for recovery, bedrest. VENKAT RAVI MD Nov 22, 2020 15:31
--- NOTE | 2020-11-22 15:48 | RAD ---
Procedure: Ultrasound-guided placement of right internal jugular temporary dialysis catheter 11/22/2020 1:44 PM Clinical Indication: Acute renal failure Discussion: The risks and benefits of the procedure were discussed the patient and/or their correspondence representative. Informed consent was obtained. A timeout procedure was performed. All elements of maximal sterile barrier technique including the use of a cap, mask, sterile gown, sterile gloves, large sterile sheet, appropriate hand hygiene, and 2% chlorhexidine for cutaneous antisepsis (or acceptable alternative antiseptic per current guidelines) were followed for this procedure. The patient was prepped and draped in the usual sterile fashion. Ultrasound interrogation of the right neck revealed patency and compressibility of the right internal jugular vein. A 21-gauge micropuncture was then used to gain access to this vein under ultrasound guidance. A hard copy ultrasound image was recorded. A guidewire was advanced centrally. 5 [place] sheath was placed. Over a wire following dilatation, a temporary dialysis catheter was advanced centrally. Catheter was found to flush and aspirate normally. Follow-up chest radiograph demonstrates tip in acceptable position. The catheter was secured in place and a sterile dressing was applied. No immediate complications were identified. Impression: Successful ultrasound-guided placement of right internal jugular temporary dialysis catheter
--- NOTE | 2020-11-22 15:56 | RAD ---
INDICATION: Reason: TEMP DIALYSIS CATHETER PLACEMENT; PT COVID + / Spl. Instructions: / History: COMPARISON: November 19, 2020 FINDINGS: frontal view of chest obtained. Enlarged cardiomediastinal silhouette is again seen. Right-sided dialysis catheter with tip near expe cted location of atriocaval junction. Left lung base is obscured by the overlying cardiac silhouette. Overall appearance the lungs is similar to prior with mild interstitial prominence. IMPRESSION: * Right-sided dialysis catheter with tip near expected location of atriocaval junction. * Repeat demonstration of severe enlargement of the cardiac silhouette. * Mild interstitial prominence bilaterally again seen. No new region of consolidation Electronically signed by: Stewart Edwards MD (11/22/2020 3:54 PM) [id number]
--- NOTE | 2020-11-22 16:05 | NUR ---
The patient was transferred to Room 658 at 1310 via wheelchair, on room air, VSS. A wright catheter was placed at 1355 with pink urine observed.
--- NOTE | 2020-11-22 16:08 | NUR ---
The patient underwent left kidney biopsy and temporary dialysis catheter placement at the bedside, VSS post procedure. Dressings are clean, dry, and intact
[2020-11-22 17:09] LABS: KAPPA FREE 229.7 mg/L (3.3-19.4); KAPPA LAMBDA RATIO 1.14 (0.26-1.65); LAMBDA FREE 201.7 mg/L (5.7-26.3)
[2020-11-22] MEDS: cefTRIAXone IV Push 1 GM VIAL. IVP SCH (17:14)
[2020-11-22] MEDS: ACETAMINOPHEN 325 MG TABLET. PO PRN (21:31)
[2020-11-23 03:04] VITALS: BP 122/67
[2020-11-23] MEDS: IV NORMAL SALINE 1000ML BAG 1,000 ML IV SCH ×2 (04:35→16:09)
[2020-11-23] MEDS: LEVOTHYROXINE 137 MCG TABLET PO SCH (05:44)
[2020-11-23 07:53] VITALS: BP 156/69
[2020-11-23] MEDS: INSULIN LISPRO 300 UNITS/3 ML VIAL. SQ SCH ×3 (08:00→17:00)
[2020-11-23 08:30] LABS: CALCIUM 7.9 mg/dL (8.5-10.1); CREATININE 3.9 mg/dL (0.6-1.0); GFR 11.6; POTASSIUM 3.6 mmol/L (3.5-5.1)
[2020-11-23] MEDS: LINAGLIPTIN 5 MG TABLET PO SCH (08:35)
[2020-11-23] MEDS: LACTOBACILLUS RHAMNOSUS GG 1 CAPSULE. PO SCH ×2 (08:35→21:40)
[2020-11-23 08:37] LABS: HEMATOCRIT 27.8 % (36.0-47.0); RED BLOOD COUNT 3.33 x10^6/uL (3.50-5.40); RED CELL DISTRIBUTION WIDTH 14.1 % (11.5-14.5); WHITE BLOOD COUNT 14.3 x10^3/uL (4.0-11.0)
--- NOTE | 2020-11-23 10:50 | PDOC ---
DATE OF SERVICE DATE: 11/23/20 TIME: 10:42 SUBJECTIVE ROS No complaints OBJECTIVE Vital Signs Vital Signs Date Time Temp Pulse Resp B/P (MAP) Pulse Ox O2 Delivery O2 Flow Rate FiO2 11/23/20 08:36 71 156/69 11/23/20 08:00 Room Air 11/23/20 07:53 97.0 20 99 97.0 11/22/20 14:55 2.0 I & 0 Intake and Output 11/23/20 07:00 Intake Total 825 ml Output Total 2550 ml Balance -1725 ml Intake Oral 300 ml Blood Product IV Normal Saline Flush 525 ml Output Urine Total 2550 ml # Voids 2 # Bowel Movements 1 PHYSICAL EXAM Physical Exam Gen NAD HEEN anicteric , on RA Neck supple Lungs CTA , non labored CV RRR Abd Obese, NT, soft Neuro AXoX 3 , grossly normal Ext No edema, No cyanosis No wright, No cva or SP tenderness DIAGNOSIS/ASSESSMENT Assessment & Plan ALBERTO - ATN vs AIN ,r/o GN - REnal Bx today , Non Oliguric , Ordered Wright p lacement yesterday ((UOP was not accurately recorded, Bladder scan not done - ordered at presentation ) , Good UOP As anticipated yesterday -? Plateaued, noted some improvement , Temp HDC was placed 11/22- no emergent indication for HD , Monitor closely for renal recovery Post Renal Bx on 11/22 , continue Supportive care, monitor for gross hematuria post biopsy No Uremic symptoms or signs, E-Lytes stable Proteinuria- Nephrotic with Micr heamturia. S/P Renal Bx 11/22 Micr hematuria - No renal or ureteral calculi. No evidence for obstructive uropathy. lesion at the upper pole of the right kidney measuring 1.6 cm. Further evaluation with nonemergent/outpatient renal protocol CT or MRI is recommended. ? UTI, Uncontrolled DM, monitor ., R/O GN. COVID Positive DM Uncontrolled - Metformin held Anemia- Decreasing Hgb , Elevated [place], lambda but Ratio normal, SPEP- No M spike in 2019. Not sure if Fe studies/colonoscopy as indicated etc done. Defer to primary . Monitor Hgb post renal Biopsy HTN antihypertensives Pericardial effusion- moderate reported on CT . Echo shows Moderate pericardial effusion .Less likely Uremic based on her renal function - per EBL Discussed with Pt at great length thru national recruiter , Discussed with Nursing COMMENT/RELEVANT DATA Meds Current Medications Medications (Trade) Dose Ordered Sig/Dennise Start Time Stop Time Status Last Admin Dose Admin Acetaminophen (Tylenol) 650 mg PRN Q6HRS PRN 11/22/20 21:30 11/22/20 21:31 650 MG Amlodipine Besylate (Norvasc) 5 mg 1X ONCE 11/22/20 14:15 11/22/20 14:16 DC 11/22/20 16:23 5 MG Ceftriaxone Sodium (Rocephin) 1 gm Q24H 11/20/20 16:00 11/22/20 17:14 1 GM Dextrose (Dextrose 50%-Water Syringe) 12.5 gm PRN Q15MIN PRN 11/20/20 14:00 Fentanyl Citrate (Fentanyl 2ml Vial) 100 mcg 1X ONCE 11/22/20 15:30 11/22/20 15:32 DC 11/22/20 14:30 100 MCG Flumazenil (Romazicon) 0.5 mg STK-MED ONCE 11/22/20 14:15 11/22/20 14:15 DC Gelatin (Gelfoam Size 12-7mm) 1 each 1X ONCE 11/22/20 15:30 11/22/20 15:32 DC 11/22/20 14:50 1 EACH Hydralazine HCl (Apresoline Inj) 10 mg 1X ONCE 11/22/20 15:00 11/22/20 15:01 DC 11/22/20 15:04 20 MG Insulin Human Lispro (HumaLOG) 0-7 UNITS TIDWMEALS 11/20/20 17:00 11/21/20 12:16 3 UNITS Lactobacillus Rhamnosus (Culturelle) 1 cap BID 11/21/20 21:00 11/23/20 08:35 1 CAP Levothyroxine Sodium (Synthroid) 137 mcg DAILY06 11/21/20 06:00 11/23/20 05:44 137 MCG Lidocaine HCl (Buffered Lidocaine 1%) 18 ml 1X ONCE 11/22/20 14:30 11/22/20 14:32 DC 11/22/20 15:17 14 ML Linagliptin (Tradjenta) 5 mg DAILY 11/21/20 09:00 11/23/20 08:35 5 MG Midazolam HCl (Versed) 2 mg 1X ONCE 11/22/20 15:30 11/22/20 15:32 DC 11/22/20 14:30 2 MG Morphine Sulfate (Morphine Sulfate) 2 mg PRN Q2HR PRN 11/19/20 17:15 11/20/20 17:14 DC Naloxone HCl (Narcan) 0.4 mg STK-MED ONCE 11/22/20 14:15 11/22/20 14:16 DC Ondansetron HCl (Zofran) 4 mg PRN Q8HRS PRN 11/19/20 17:15 11/20/20 17:14 DC Sodium Chloride 1,000 ml @ 75 mls/hr [id number] 11/21/20 11:30 11/23/20 04:35 75 MLS/HR Lab Laboratory Tests Test 11/22/20 10:50 11/22/20 11:11 11/23/20 07:36 SARS-CoV-2 Antigen (Rapid) Positive (NEGATIVE) Glucose (Fingerstick) 129 mg/dL (70-99) White Blood Count 14.3 x10^3/uL (4.0-11.0) Red Blood Count 3.33 x10^6/uL (3.50-5.40) Hemoglobin 9.0 g/dL (12.0-15.5) Hematocrit 27.8 % (36.0-47.0) Mean Corpuscular Volume 83 fL (79-100) Mean Corpuscular Hemoglobin 27 pg (25-35) Mean Corpuscular Hemoglobin Concent 33 g/dL (31-37) Red Cell Distribution Width 14.1 % (11.5-14.5) Platelet Count 284 x10^3/uL (140-400) Sodium Level 139 mmol/L (136-145) Potassium Level 3.6 mmol/L (3.5-5.1) Chloride Level 105 mmol/L (98-107) Carbon Dioxide Level 23 mmol/L (21-32) Anion Gap 11 (6-14) Blood Urea Nitrogen 39 mg/dL (7-20) Creatinine 3.9 mg/dL (0.6-1.0) Estimated GFR (Cockcroft-Gault) 11.6 Glucose Level 122 mg/dL (70-99) Calcium Level 7.9 mg/dL (8.5-10.1) Hepatitis B Surface Antigen Nonreactive (Nonreactive) Results All relevant outside records, renal labs, imaging studies, telemetry/EKG's were reviewed. Justicifation of Admission Dx: Justifications for Admission: Justification of Admission Dx: Yes Acute Renal Failure: 3-Fold Rise in Serum Crea DANY HAWTHORNE MD Nov 23, 2020 10:50
[2020-11-23 11:08] VITALS: BP 162/83
--- NOTE | 2020-11-23 12:02 | PDOC ---
[employer] PROGRESS NOTE Date of Service DOS: DATE: 11/23/20 TIME: 11:59 Chief Complaint Chief Complaint A/P: Chest pain - likely GERD, but with pericardial effusion on CT, will consult cardiology, check echo ALBERTO - likely vasomotor nephropathy. Nephrology consulted. Bladder scan prn, strict I?O . No casts reported in UA, Check Pr/Cr Abnormal UA - with LE, WBCs, left sided stranding, likely pyelonephritis, will give rocephin. IVF. Pain control Hematuria - No renal or ureteral calculi. Likely from UTI, will monitor Right renal lesion at the upper pole of the right kidney measuring 1.6 cm - informed follow up necessary Uncontrolled DM - sliding scale, will hold oral hypoglycemic agents for ALBERTO Anemia -likely of chronic disease HTN - prn antihypertensives Pericardial effusion- moderate reported on CT . Consult cardiology Leukocytosis - with tachycardia, will treat sepsis from UTI FEN - ADA diet PPX - heparin FULL CODE Dispo - inpatient History of Present Illness History of Present Illness Ms Ledesma is a 64 yo upper sorbian speaking female w/ PMHx HTN, HLD, DM2 who presents to ED C/O chest pressure 3/10 substernal, no radiation while she was laying down on 11/18/20 in the evening. She awoke on 11/19 and it persisted with associated heaviness. She came to ED at the insistence of her family. Patient notes that the pain resolved today but she felt uneasy sensation and heaviness in her chest Denies any nausea, vomiting, fever, chills, shortness of breath or dizziness. No fever or chills. Denies cough, hemoptysis. Does not use NSAIDs, and has been following with [facility] and recently has a new PCP, she is also on Metformin and Losartan. No history of renal disease to her knowledge but does note a "spot" on her right kidney she has been told about. Patient also states her urine has been darker then normal for the last 2 weeks, no specific dysuria. Noted in ED with lab abnormalities with WBC 18.3, Hb 10.4, platelets 283, NA 130, K4.1, BUN 41, CR 3.3, glucose 118, lipase 0, troponin 0, procalcitonin 0. UA with large blood and positive leukocyte esterase. EKG normal sinus rhythm with a leftward axis. Chest radiograph with increased lung markings. CT abdomen/pelvis mild stranding adjacent to the left renal pelvis, no renal or ureteral calculi. No evidence for obstructive uropathy. Vague mildly hyperattenuating lesion at the upper pole of the right kidney measuring 1.6 cm. Further evaluation with nonemergent/outpatient renal protocol CT or MRI is recommended. Moderate-sized Pericardial effusion noted on CT, confirmed on echocardiogram. Consults; nephrology and cardiology 11/21: Chest pressure resolved. Good UOP. Cr at 4. D/w family and nephrology the renal biopsy may be indicated this week. JOB, ANCA, Anti-GBM pending 11/22: Afebrile. CR 4.3 and BUN up to 44, phosphorus 5.1. Still with microscopic hematuria. Discussed with nephrology and patient and family via lockstitch cup setter it is important to undergo renal biopsy today to have plan for further treatment and also prepare for dialysis. 11/23: Patient COVID-19 positive, breathing on room air. Afebrile. No acute events overnight. BUN/creatinine slightly improved, 39/3.9. Renal biopsy yesterday, pathology pending. Temporary dialysis catheter placed. Initiate HD per nephrology. Vitals/I&O Vitals/I&O: Vital Signs Date Time Temp Pulse Resp B/P (MAP) Pulse Ox O2 Delivery O2 Flow Rate FiO2 11/23/20 11:08 97.6 72 18 162/83 (109) 98 Room Air 97.6 11/22/20 14:55 2.0 I & O 11/22/20 11/22/20 11/23/20 15:00 23:00 07:00 Intake Total 525 ml 300 ml Output Total 400 ml 2150 ml Balance 525 ml -100 ml -2150 ml Physical Exam General: Alert, Cooperative, No acute distress Heart: Regular rate, Other (distant heart tones ) Lungs: Clear Abdomen: Soft Extremities: No clubbing, Other (1+ bilateral LE edema ) Skin: No rashes, No significant lesion Labs Labs: Laboratory Tests Test 11/23/20 07:36 White Blood Count 14.3 x10^3/uL (4.0-11.0) Red Blood Count 3.33 x10^6/uL (3.50-5.40) Hemoglobin 9.0 g/dL (12.0-15.5) Hematocrit 27.8 % (36.0-47.0) Mean Corpuscular Volume 83 fL (79-100) Mean Corpuscular Hemoglobin 27 pg (25-35) Mean Corpuscular Hemoglobin Concent 33 g/dL (31-37) Red Cell Distribution Width 14.1 % (11.5-14.5) Platelet Count 284 x10^3/uL (140-400) Sodium Level 139 mmol/L (136-145) Potassium Level 3.6 mmol/L (3.5-5.1) Chloride Level 105 mmol/L (98-107) Carbon Dioxide Level 23 mmol/L (21-32) Anion Gap 11 (6-14) Blood Urea Nitrogen 39 mg/dL (7-20) Creatinine 3.9 mg/dL (0.6-1.0) Estimated GFR (Cockcroft-Gault) 11.6 Glucose Level 122 mg/dL (70-99) Calcium Level 7.9 mg/dL (8.5-10.1) Hepatitis B Surface Antigen Nonreactive (Nonreactive) Assessment and Plan Assessmemt and Plan Problems Medical Problems: (1) Acute kidney failure Status: Acute Comment Review of Relevant I have reviewed the following items alexandro (where applicable) has been applied. Medications: Current Medications Medications (Trade) Dose Ordered Sig/Dennise Route PRN Reason Start Time Stop Time Status Last Admin Dose Admin Amlodipine Besylate (Norvasc) 5 mg DAILY PO 11/23/20 09:00 11/23/20 08:36 Amlodipine Besylate (Norvasc) 5 mg 1X ONCE PO 11/22/20 14:15 11/22/20 14:16 DC 11/22/20 16:23 Lidocaine HCl (Buffered Lidocaine 1%) 18 ml 1X ONCE INJ 11/22/20 14:30 11/22/20 14:32 DC 11/22/20 15:17 Hydralazine HCl (Apresoline Inj) 10 mg 1X ONCE IVP 11/22/20 15:00 11/22/20 15:01 DC 11/22/20 15:04 Midazolam HCl (Versed) 2 mg 1X ONCE IV 11/22/20 15:30 11/22/20 15:32 DC 11/22/20 14:30 Fentanyl Citrate (Fentanyl 2ml Vial) 100 mcg 1X ONCE IV 11/22/20 15:30 11/22/20 15:32 DC 11/22/20 14:30 Gelatin (Gelfoam Size 12-7mm) 1 each 1X ONCE TP 11/22/20 15:30 11/22/20 15:32 DC 11/22/20 14:50 Acetaminophen (Tylenol) 650 mg PRN Q6HRS PRN PO MILD PAIN / TEMP > 100.3'F 11/22/20 21:30 11/22/20 21:31 Justifications for Admission Other Justification ASAF HUERTAS MD Nov 23, 2020 12:02
[2020-11-23 15:02] VITALS: BP 162/78
[2020-11-23] MEDS: cefTRIAXone IV Push 1 GM VIAL. IVP SCH (16:03)
--- NOTE | 2020-11-23 16:35 | NUR ---
SW following for discharge planning. Spoke with RN and reviewed chart. Pt remains on IV Rocephin. Temporary dialysis catheter placed. SW following for possible new dialysis setup. Pt self-pay.
[2020-11-23] MEDS ORDERED: POLYETHYLENE GLYCOL 3350 17 GM PACKET. PO PRN (18:30)
[2020-11-23] MEDS ORDERED: BISACODYL 10 MG SUPP.RECT. PR PRN (18:30)
[2020-11-23] MEDS ORDERED: POLYETHYLENE GLYCOL 3350 17 GM PACKET. PO ONE (18:30)
[2020-11-23 19:00] VITALS: BP 158/78
[2020-11-23] MEDS: PSYLLIUM HUSK (SUGAR FREE) 1 PKT PACKET PO SCH (21:00)
[2020-11-23 23:20] VITALS: BP 168/83
[2020-11-24] MEDS: CALCIUM CARBONATE 500 MG TAB.CHEW PO PRN (00:43)
[2020-11-24 03:00] VITALS: BP 165/85
[2020-11-24 05:14] LABS: CALCIUM 7.7 mg/dL (8.5-10.1); CREATININE 3.7 mg/dL (0.6-1.0); GFR 12.4; POTASSIUM 3.5 mmol/L (3.5-5.1)
[2020-11-24] MEDS: IV NORMAL SALINE 1000ML BAG 1,000 ML IV SCH ×2 (05:35→18:26)
[2020-11-24] MEDS: LEVOTHYROXINE 137 MCG TABLET PO SCH (05:35)
[2020-11-24 07:00] VITALS: BP 164/77
[2020-11-24] MEDS: INSULIN LISPRO 300 UNITS/3 ML VIAL. SQ SCH ×4 (07:32→16:47)
[2020-11-24] MEDS: LACTOBACILLUS RHAMNOSUS GG 1 CAPSULE. PO SCH ×2 (07:48→21:40)
[2020-11-24] MEDS: LINAGLIPTIN 5 MG TABLET PO SCH (07:49)
--- NOTE | 2020-11-24 10:22 | PDOC ---
DATE OF SERVICE DATE: 11/24/20 TIME: 10:16 SUBJECTIVE ROS No complaints OBJECTIVE Vital Signs Vital Signs Date Time Temp Pulse Resp B/P (MAP) Pulse Ox O2 Delivery O2 Flow Rate FiO2 11/24/20 08:00 Room Air 11/24/20 07:52 77 164/76 11/24/20 07:00 98.0 17 100 98.0 I & 0 Intake and Output 11/24/20 07:00 Intake Total 1960 ml Output Total 3500 ml Balance -1540 ml Intake Oral 1060 ml IV Total 900 ml Output Urine Total 3500 ml # Bowel Movements 2 PHYSICAL EXAM Physical Exam Gen NAD HEEN anicteric , on RA Neck supple Lungs CTA , non labored CV RRR Abd Obese, NT, soft Neuro AXoX 3 , grossly normal Ext No edema, No cyanosis No wright, No cva or SP tenderness DIAGNOSIS/ASSESSMENT Assessment & Plan ALBERTO - ATN vs AIN ,r/o GN - REnal Bx today , Non Oliguric ,Wright placed on 11/22 ((UOP was not accurately recorded, Bladder scan not done - ordered at pr esentation ) , UOP 2.5-3.5 lts Slow improvement in renal function, Temp HDC was placed 11/22- not started on dialysis yet , currently no emergent indication , Monitor closely for renal recovery Post Renal Bx on 11/22 , awaiting results , serologies pending , continue Supportive care, monitor for gross hematuria post biopsy No Uremic symptoms or signs, E-Lytes stable Proteinuria- Nephrotic with Micr heamturia. S/P Renal Bx 11/22 Micr hematuria - No renal or ureteral calculi. No evidence for obstructive uropathy. lesion at the upper pole of the right kidney measuring 1.6 cm. Further evaluation with nonemergent/outpatient renal protocol CT or MRI is recommended. Uncontrolled DM, monitor ., R/O GN. COVID Positive DM Uncontrolled - Metformin held Anemia- Decreasing Hgb , currently stable , Elevated [place], lambda but Ratio normal, SPEP- No M spike in 2019. Repeat similar results , Tsats low , colonoscopy if indicated Defer to primary HTN antihypertensives Pericardial effusion- moderate reported on CT . Echo shows Moderate pericardial effusion .Less likely Uremic based on her renal function - per EBL COMMENT/RELEVANT DATA Meds Current Medications Medications (Trade) Dose Ordered Sig/Dennise Start Time Stop Time Status Last Admin Dose Admin Acetaminophen (Tylenol) 650 mg PRN Q6HRS PRN 11/22/20 21:30 11/22/20 21:31 650 MG Amlodipine Besylate (Norvasc) 5 mg 1X ONCE 11/22/20 14:15 11/22/20 14:16 DC 11/22/20 16:23 5 MG Bisacodyl (Dulcolax Supp) 10 mg PRN DAILY PRN 11/23/20 18:30 Calcium Carbonate/ Glycine (Tums) 500 mg PRN AFTMEALHC PRN 11/23/20 23:30 11/24/20 00:43 500 MG Ceftriaxone Sodium (Rocephin) 1 gm Q24H 11/20/20 16:00 11/23/20 16:03 1 GM Dextrose (Dextrose 50%-Water Syringe) 12.5 gm PRN Q15MIN PRN 11/20/20 14:00 Fentanyl Citrate (Fentanyl 2ml Vial) 100 mcg 1X ONCE 11/22/20 15:30 11/22/20 15:32 DC 11/22/20 14:30 100 MCG Flumazenil (Romazicon) 0.5 mg STK-MED ONCE 11/22/20 14:15 11/22/20 14:15 DC Gelatin (Gelfoam Size 12-7mm) 1 each 1X ONCE 11/22/20 15:30 11/22/20 15:32 DC 11/22/20 14:50 1 EACH Hydralazine HCl (Apresoline Inj) 10 mg 1X ONCE 11/22/20 15:00 11/22/20 15:01 DC 11/22/20 15:04 20 MG Insulin Human Lispro (HumaLOG) 0-7 UNITS TIDWMEALS 11/20/20 17:00 11/23/20 11:44 3 UNITS Lactobacillus Rhamnosus (Culturelle) 1 cap BID 11/21/20 21:00 11/24/20 07:48 1 CAP Levothyroxine Sodium (Synthroid) 137 mcg DAILY06 11/21/20 06:00 11/24/20 05:35 137 MCG Lidocaine HCl (Buffered Lidocaine 1%) 18 ml 1X ONCE 11/22/20 14:30 11/22/20 14:32 DC 11/22/20 15:17 14 ML Linagliptin (Tradjenta) 5 mg DAILY 11/21/20 09:00 11/24/20 07:49 5 MG Midazolam HCl (Versed) 2 mg 1X ONCE 11/22/20 15:30 11/22/20 15:32 DC 11/22/20 14:30 2 MG Morphine Sulfate (Morphine Sulfate) 2 mg PRN Q2HR PRN 11/19/20 17:15 11/20/20 17:14 DC Naloxone HCl (Narcan) 0.4 mg STK-MED ONCE 11/22/20 14:15 11/22/20 14:16 DC Ondansetron HCl (Zofran) 4 mg PRN Q8HRS PRN 11/19/20 17:15 11/20/20 17:14 DC Polyethylene Glycol (miraLAX PACKET) 17 gm PRN DAILY PRN 11/23/20 18:30 Psyllium Hydrophilic Mucilloid (Metamucil Fiber Packet) 1 pkt QHS 11/23/20 21:00 Sodium Chloride 1,000 ml @ 75 mls/hr [id number] 11/21/20 11:30 11/24/20 05:35 75 MLS/HR Lab Laboratory Tests Test 11/23/20 10:21 11/23/20 16:14 11/23/20 19:56 11/24/20 04:30 Glucose (Fingerstick) 173 mg/dL (70-99) 140 mg/dL (70-99) 207 mg/dL (70-99) Hemoglobin 9.0 g/dL (12.0-15.5) Sodium Level 140 mmol/L (136-145) Potassium Level 3.5 mmol/L (3.5-5.1) Chloride Level 105 mmol/L (98-107) Carbon Dioxide Level 23 mmol/L (21-32) Anion Gap 12 (6-14) Blood Urea Nitrogen 38 mg/dL (7-20) Creatinine 3.7 mg/dL (0.6-1.0) Estimated GFR (Cockcroft-Gault) 12.4 Glucose Level 127 mg/dL (70-99) Calcium Level 7.7 mg/dL (8.5-10.1) Iron Level 26 ug/dL (50-170) Total Iron Binding Capacity 226 ug/dL (250-450) Iron Saturation 12 % (15-34) Ferritin 137 ng/mL (8-252) Test 11/24/20 07:14 Glucose (Fingerstick) 134 mg/dL (70-99) Results All relevant outside records, renal labs, imaging studies, telemetry/EKG's were reviewed. Justicifation of Admission Dx: Justifications for Admission: Justification of Admission Dx: Yes Acute Renal Failure: 3-Fold Rise in Serum Crea DANY HAWTHORNE MD Nov 24, 2020 10:22
[2020-11-24 11:00] VITALS: BP 155/79
[2020-11-24 13:16] LABS: GLOMERULAR BASEMENT ABDY 5 units (0-20)
[2020-11-24 15:00] VITALS: BP 153/61
--- NOTE | 2020-11-24 15:21 | PDOC ---
[employer] PROGRESS NOTE Date of Service DOS: DATE: 11/24/20 TIME: 15:19 Chief Complaint Chief Complaint A/P: Chest pain - likely GERD, but with pericardial effusion on CT, will consult cardiology, check echo ALBERTO - likely vasomotor nephropathy. Nephrology consulted. Bladder scan prn, strict I?O . No casts reported in UA, Check Pr/Cr Abnormal UA - with LE, WBCs, left sided stranding, likely pyelonephritis, will give rocephin. IVF. Pain control Hematuria - No renal or ureteral calculi. Likely from UTI, will monitor Right renal lesion at the upper pole of the right kidney measuring 1.6 cm - informed follow up necessary Uncontrolled DM - sliding scale, will hold oral hypoglycemic agents for ALBERTO Anemia -likely of chronic disease HTN - prn antihypertensives Pericardial effusion- moderate reported on CT . Consult cardiology Leukocytosis - with tachycardia, will treat sepsis from UTI FEN - ADA diet PPX - heparin FULL CODE Dispo - inpatient History of Present Illness History of Present Illness Ms Ledesma is a 64 yo arabic speaking female w/ PMHx HTN, HLD, DM2 who presents to ED C/O chest pressure 3/10 substernal, no radiation while she was laying down on 11/18/20 in the evening. She awoke on 11/19 and it persisted with associated heaviness. She came to ED at the insistence of her family. Patient notes that the pain resolved today but she felt uneasy sensation and heaviness in her chest Denies any nausea, vomiting, fever, chills, shortness of breath or dizziness. No fever or chills. Denies cough, hemoptysis. Does not use NSAIDs, and has been following with [facility] and recently has a new PCP, she is also on Metformin and Losartan. No history of renal disease to her knowledge but does note a "spot" on her right kidney she has been told about. Patient also states her urine has been darker then normal for the last 2 weeks, no specific dysuria. Noted in ED with lab abnormalities with WBC 18.3, Hb 10.4, platelets 283, NA 130, K4.1, BUN 41, CR 3.3, glucose 118, lipase 0, troponin 0, procalcitonin 0. UA with large blood and positive leukocyte esterase. EKG normal sinus rhythm with a leftward axis. Chest radiograph with increased lung markings. CT abdomen/pelvis mild stranding adjacent to the left renal pelvis, no renal or ureteral calculi. No evidence for obstructive uropathy. Vague mildly hyperattenuating lesion at the upper pole of the right kidney measuring 1.6 cm. Further evaluation with nonemergent/outpatient renal protocol CT or MRI is recommended. Moderate-sized Pericardial effusion noted on CT, confirmed on echocardiogram. Consults; nephrology and cardiology 11/21: Chest pressure resolved. Good UOP. Cr at 4. D/w family and nephrology the renal biopsy may be indicated this week. JOB, ANCA, Anti-GBM pending 11/22: Afebrile. CR 4.3 and BUN up to 44, phosphorus 5.1. Still with microscopic hematuria. Discussed with nephrology and patient and family via manager pe it is important to undergo renal biopsy today to have plan for further treatment and also prepare for dialysis. 11/23: Patient COVID-19 positive, breathing on room air. Afebrile. No acute events overnight. BUN/creatinine slightly improved, 39/3.9. Renal biopsy yesterday, pathology pending. Temporary dialysis catheter placed. Initiate HD per nephrology. 11/24: Patient seen and evaluated. He is afebrile, denies shortness of breath, breathing on room air. Awaiting renal biopsy results. Vitals/I&O Vitals/I&O: Vital Signs Date Time Temp Pulse Resp B/P (MAP) Pulse Ox O2 Delivery O2 Flow Rate FiO2 11/24/20 11:00 98.0 85 17 155/79 (104) 100 Room Air 98.0 I & O 11/23/20 11/23/20 11/24/20 14:59 22:59 06:59 Intake Total 360 ml 1100 ml 500 ml Output Total 1500 ml 2000 ml Balance -1140 ml 1100 ml -1500 ml Physical Exam General: Alert, Cooperative, No acute distress Heart: Regular rate, Other (distant heart tones ) Lungs: Clear Abdomen: Soft Extremities: No clubbing, Other (1+ bilateral LE edema ) Skin: No rashes, No significant lesion Labs Labs: Laboratory Tests Test 11/23/20 16:14 11/23/20 19:56 11/24/20 04:30 11/24/20 07:14 Glucose (Fingerstick) 140 mg/dL (70-99) 207 mg/dL (70-99) 134 mg/dL (70-99) Hemoglobin 9.0 g/dL (12.0-15.5) Sodium Level 140 mmol/L (136-145) Potassium Level 3.5 mmol/L (3.5-5.1) Chloride Level 105 mmol/L (98-107) Carbon Dioxide Level 23 mmol/L (21-32) Anion Gap 12 (6-14) Blood Urea Nitrogen 38 mg/dL (7-20) Creatinine 3.7 mg/dL (0.6-1.0) Estimated GFR (Cockcroft-Gault) 12.4 Glucose Level 127 mg/dL (70-99) Calcium Level 7.7 mg/dL (8.5-10.1) Iron Level 26 ug/dL (50-170) Total Iron Binding Capacity 226 ug/dL (250-450) Iron Saturation 12 % (15-34) Ferritin 137 ng/mL (8-252) Test 11/24/20 10:41 Glucose (Fingerstick) 189 mg/dL (70-99) Assessment and Plan Assessmemt and Plan Problems Medical Problems: (1) Acute kidney failure Status: Acute Comment Review of Relevant I have reviewed the following items alexandro (where applicable) has been applied. Medications: Current Medications Medications (Trade) Dose Ordered Sig/Dennise Route PRN Reason Start Time Stop Time Status Last Admin Dose Admin Polyethylene Glycol (miraLAX PACKET) 17 gm 1X ONCE PO 11/23/20 18:30 11/23/20 18:31 DC 11/23/20 21:40 Calcium Carbonate/ Glycine (Tums) 500 mg PRN AFTMEALHC PRN PO INDIGESTION 11/23/20 23:30 11/24/20 00:43 Justifications for Admission Other Justification ASAF HUERTAS MD Nov 24, 2020 15:21
[2020-11-24] MEDS: cefTRIAXone IV Push 1 GM VIAL. IVP SCH (15:31)
[2020-11-24 19:50] VITALS: BP 181/85
[2020-11-24 20:08] LABS: ANA INTERP Negative (.)
[2020-11-24] MEDS: PSYLLIUM HUSK (SUGAR FREE) 1 PKT PACKET PO SCH (21:40)
[2020-11-24 23:24] VITALS: BP 166/83
[2020-11-25 03:50] VITALS: BP 135/78
[2020-11-25 05:18] LABS: BASO # 0.1 x10^3/uL (0.0-0.2); BASO % 1 % (0-3); EOS # 0.5 x10^3/uL (0.0-0.7); EOS % 3 % (0-3); HEMATOCRIT 26.5 % (36.0-47.0); HEMOGLOBIN 8.5 g/dL (12.0-15.5); LYMPH # 2.3 x10^3/uL (1.0-4.8); LYMPH % 15 % (24-48); MEAN CORPUSCULAR HEMOGLOBIN 27 pg (25-35); MEAN CORPUSCULAR HGB CONC 32 g/dL (31-37); MEAN CORPUSCULAR VOLUME 83 fL (79-100); MONO # 0.9 x10^3/uL (0.0-1.1); MONO % 6 % (0-9); NEUT # 11.5 x10^3/uL (1.8-7.7); NEUT % 75 % (31-73); PLATELET COUNT 267 x10^3/uL (140-400); RED BLOOD COUNT 3.18 x10^6/uL (3.50-5.40); RED CELL DISTRIBUTION WIDTH 13.8 % (11.5-14.5); WHITE BLOOD COUNT 15.3 x10^3/uL (4.0-11.0)
[2020-11-25 05:38] LABS: CALCIUM 8.2 mg/dL (8.5-10.1); CREATININE 3.5 mg/dL (0.6-1.0); GFR 13.2; POTASSIUM 3.2 mmol/L (3.5-5.1)
[2020-11-25] MEDS: LEVOTHYROXINE 137 MCG TABLET PO SCH (05:45)
[2020-11-25 07:00] VITALS: BP 181/82
[2020-11-25] MEDS: INSULIN LISPRO 300 UNITS/3 ML VIAL. SQ SCH ×3 (08:00→17:02)
[2020-11-25] MEDS: LINAGLIPTIN 5 MG TABLET PO SCH (08:55)
[2020-11-25] MEDS: LACTOBACILLUS RHAMNOSUS GG 1 CAPSULE. PO SCH ×2 (08:55→21:25)
[2020-11-25] MEDS: IV NORMAL SALINE 1000ML BAG 1,000 ML IV SCH ×2 (08:55→21:26)
[2020-11-25] MEDS: ACETAMINOPHEN 325 MG TABLET. PO PRN (09:08)
[2020-11-25 11:00] VITALS: BP 141/64
--- NOTE | 2020-11-25 14:58 | PDOC ---
PROGRESS NOTES Date of Service DATE: 11/25/20 TIME: 14:55 Subjective Subjective Creat is better today. replace KCl. Kidney Bx preliminary report shows IgAN with Possible Crescents. Infection associated GN cannot be ruled out. Will defer to Primary team to ascertain focus of infection. Will hold off on Steroids and CTX since creat is improving and infection may need to be ruled out. Objective Objective Vital Signs Date Time Temp Pulse Resp B/P (MAP) Pulse Ox O2 Delivery O2 Flow Rate FiO2 11/25/20 11:00 96.8 69 18 141/64 (89) 97 Room Air 96.8 11/22/20 14:55 2.0 Intake and Output 11/25/20 07:00 Intake Total 2420 ml Output Total 4850 ml Balance -2430 ml Intake Oral 2420 ml Output Urine Total 4850 ml Assessment Assessment Problems Medical Problems: (1) Acute kidney failure Status: Acute Comment Review of Relevant I have reviewed the following items alexandro (where applicable) has been applied. Labs Laboratory Tests Test 11/23/20 16:14 11/23/20 19:56 11/24/20 04:30 11/24/20 07:14 Glucose (Fingerstick) 140 mg/dL (70-99) 207 mg/dL (70-99) 134 mg/dL (70-99) Hemoglobin 9.0 g/dL (12.0-15.5) Sodium Level 140 mmol/L (136-145) Potassium Level 3.5 mmol/L (3.5-5.1) Chloride Level 105 mmol/L (98-107) Carbon Dioxide Level 23 mmol/L (21-32) Anion Gap 12 (6-14) Blood Urea Nitrogen 38 mg/dL (7-20) Creatinine 3.7 mg/dL (0.6-1.0) Estimated GFR (Cockcroft-Gault) 12.4 Glucose Level 127 mg/dL (70-99) Calcium Level 7.7 mg/dL (8.5-10.1) Iron Level 26 ug/dL (50-170) Total Iron Binding Capacity 226 ug/dL (250-450) Iron Saturation 12 % (15-34) Ferritin 137 ng/mL (8-252) Test 11/24/20 10:41 11/24/20 15:42 11/24/20 20:48 11/25/20 03:30 Glucose (Fingerstick) 189 mg/dL (70-99) 139 mg/dL (70-99) 189 mg/dL (70-99) White Blood Count 15.3 x10^3/uL (4.0-11.0) Red Blood Count 3.18 x10^6/uL (3.50-5.40) Hemoglobin 8.5 g/dL (12.0-15.5) Hematocrit 26.5 % (36.0-47.0) Mean Corpuscular Volume 83 fL (79-100) Mean Corpuscular Hemoglobin 27 pg (25-35) Mean Corpuscular Hemoglobin Concent 32 g/dL (31-37) Red Cell Distribution Width 13.8 % (11.5-14.5) Platelet Count 267 x10^3/uL (140-400) Neutrophils (%) (Auto) 75 % (31-73) Lymphocytes (%) (Auto) 15 % (24-48) Monocytes (%) (Auto) 6 % (0-9) Eosinophils (%) (Auto) 3 % (0-3) Basophils (%) (Auto) 1 % (0-3) Neutrophils # (Auto) 11.5 x10^3/uL (1.8-7.7) Lymphocytes # (Auto) 2.3 x10^3/uL (1.0-4.8) Monocytes # (Auto) 0.9 x10^3/uL (0.0-1.1) Eosinophils # (Auto) 0.5 x10^3/uL (0.0-0.7) Basophils # (Auto) 0.1 x10^3/uL (0.0-0.2) Sodium Level 140 mmol/L (136-145) Potassium Level 3.2 mmol/L (3.5-5.1) Chloride Level 106 mmol/L (98-107) Carbon Dioxide Level 22 mmol/L (21-32) Anion Gap 12 (6-14) Blood Urea Nitrogen 36 mg/dL (7-20) Creatinine 3.5 mg/dL (0.6-1.0) Estimated GFR (Cockcroft-Gault) 13.2 Glucose Level 118 mg/dL (70-99) Calcium Level 8.2 mg/dL (8.5-10.1) Test 11/25/20 07:43 11/25/20 11:41 Glucose (Fingerstick) 127 mg/dL (70-99) 136 mg/dL (70-99) Laboratory Tests Test 11/24/20 15:42 11/24/20 20:48 11/25/20 03:30 11/25/20 07:43 Glucose (Fingerstick) 139 mg/dL (70-99) 189 mg/dL (70-99) 127 mg/dL (70-99) White Blood Count 15.3 x10^3/uL (4.0-11.0) Red Blood Count 3.18 x10^6/uL (3.50-5.40) Hemoglobin 8.5 g/dL (12.0-15.5) Hematocrit 26.5 % (36.0-47.0) Mean Corpuscular Volume 83 fL (79-100) Mean Corpuscular Hemoglobin 27 pg (25-35) Mean Corpuscular Hemoglobin Concent 32 g/dL (31-37) Red Cell Distribution Width 13.8 % (11.5-14.5) Platelet Count 267 x10^3/uL (140-400) Neutrophils (%) (Auto) 75 % (31-73) Lymphocytes (%) (Auto) 15 % (24-48) Monocytes (%) (Auto) 6 % (0-9) Eosinophils (%) (Auto) 3 % (0-3) Basophils (%) (Auto) 1 % (0-3) Neutrophils # (Auto) 11.5 x10^3/uL (1.8-7.7) Lymphocytes # (Auto) 2.3 x10^3/uL (1.0-4.8) Monocytes # (Auto) 0.9 x10^3/uL (0.0-1.1) Eosinophils # (Auto) 0.5 x10^3/uL (0.0-0.7) Basophils # (Auto) 0.1 x10^3/uL (0.0-0.2) Sodium Level 140 mmol/L (136-145) Potassium Level 3.2 mmol/L (3.5-5.1) Chloride Level 106 mmol/L (98-107) Carbon Dioxide Level 22 mmol/L (21-32) Anion Gap 12 (6-14) Blood Urea Nitrogen 36 mg/dL (7-20) Creatinine 3.5 mg/dL (0.6-1.0) Estimated GFR (Cockcroft-Gault) 13.2 Glucose Level 118 mg/dL (70-99) Calcium Level 8.2 mg/dL (8.5-10.1) Test 11/25/20 11:41 Glucose (Fingerstick) 136 mg/dL (70-99) Microbiology 11/19/20 Blood Culture - Final, Complete NO GROWTH AFTER 5 DAYS Medications Current Medications Ceftriaxone Sodium (Rocephin) 1 gm 1X ONCE IVP Last administered on 11/19/20at 14:44; Start 11/19/20 at 14:45; Stop 11/19/20 at 14:46; Status DC Morphine Sulfate (Morphine Sulfate) 4 mg 1X ONCE IV ; Start 11/19/20 at 14:45; Stop 11/19/20 at 14:46; Status DC Sodium Chloride 1,000 ml @ 1,000 mls/hr 1X ONCE IV Last administered on 11/19/20at 14:44; Start 11/19/20 at 14:45; Stop 11/19/20 at 15:44; Status DC Sodium Chloride 1,000 ml @ 1,000 mls/hr 1X ONCE IV Last administered on 11/19/20at 14:44; Start 11/19/20 at 14:45; Stop 11/19/20 at 15:44; Status DC Ondansetron HCl (Zofran) 4 mg PRN Q8HRS PRN IV NAUSEA/VOMITING; Start 11/19/20 at 17:15; Stop 11/20/20 at 17:14; Status DC Morphine Sulfate (Morphine Sulfate) 2 mg PRN Q2HR PRN IV PAIN; Start 11/19/20 at 17:15; Stop 11/20/20 at 17:14; Status DC Insulin Human Lispro (HumaLOG) 0-7 UNITS TIDWMEALS SQ Last administered on 11/24/20at 11:45; Start 11/20/20 at 17:00 Dextrose (Dextrose 50%-Water Syringe) 12.5 gm PRN Q15MIN PRN IV SEE COMMENTS; Start 11/20/20 at 14:00 Ceftriaxone Sodium (Rocephin) 1 gm Q24H IVP Last administered on 11/24/20at 15:31; Start 11/20/20 at 16:00 Levothyroxine Sodium (Synthroid) 137 mcg DAILY06 PO Last administered on 11/25/20at 05:45; Start 11/21/20 at 06:00 Linagliptin (Tradjenta) 5 mg DAILY PO Last administered on 11/25/20at 08:55; Start 11/21/20 at 09:00 Sodium Chloride 1,000 ml @ 75 mls/hr [id number] IV Last administered on 11/25/20at 08:55; Start 11/21/20 at 11:30 Lactobacillus Rhamnosus (Culturelle) 1 cap BID PO Last administered on 11/25/20at 08:55; Start 11/21/20 at 21:00 Lidocaine HCl (Buffered Lidocaine 1%) 3 ml STK-MED ONCE .ROUTE ; Start 11/22/20 at 14:08; Stop 11/22/20 at 14:08; Status DC Gelatin (Gelfoam Size 12-7mm) 1 each STK-MED ONCE .ROUTE ; Start 11/22/20 at 14:09; Stop 11/22/20 at 14:09; Status DC Amlodipine Besylate (Norvasc) 5 mg DAILY PO Last administered on 11/25/20at 08:55; Start 11/23/20 at 09:00 Amlodipine Besylate (Norvasc) 5 mg 1X ONCE PO Last administered on 11/22/20at 16:23; Start 11/22/20 at 14:15; Stop 11/22/20 at 14:16; Status DC Midazolam HCl (Versed) 2 mg STK-MED ONCE .ROUTE ; Start 11/22/20 at 14:15; Stop 11/22/20 at 14:15; Status DC Fentanyl Citrate (Fentanyl 2ml Vial) 100 mcg STK-MED ONCE .ROUTE ; Start 11/22/20 at 14:15; Stop 11/22/20 at 14:15; Status DC Flumazenil (Romazicon) 0.5 mg STK-MED ONCE IV ; Start 11/22/20 at 14:15; Stop 11/22/20 at 14:15; Status DC Naloxone HCl (Narcan) 0.4 mg STK-MED ONCE .ROUTE ; Start 11/22/20 at 14:15; Stop 11/22/20 at 14:16; Status DC Lidocaine HCl (Buffered Lidocaine 1%) 18 ml 1X ONCE INJ Last administered on 11/22/20at 15:17; Start 11/22/20 at 14:30; Stop 11/22/20 at 14:32; Status DC Hydralazine HCl (Apresoline Inj) 10 mg 1X ONCE IVP Last administered on 11/22/20at 15:04; Start 11/22/20 at 15:00; Stop 11/22/20 at 15:01; Status DC Midazolam HCl (Versed) 2 mg 1X ONCE IV Last administered on 11/22/20at 14:30; Start 11/22/20 at 15:30; Stop 11/22/20 at 15:32; Status DC Fentanyl Citrate (Fentanyl 2ml Vial) 100 mcg 1X ONCE IV Last administered on 11/22/20at 14:30; Start 11/22/20 at 15:30; Stop 11/22/20 at 15:32; Status DC Gelatin (Gelfoam Size 12-7mm) 1 each 1X ONCE TP Last administered on 11/22/20at 14:50; Start 11/22/20 at 15:30; Stop 11/22/20 at 15:32; Status DC Acetaminophen (Tylenol) 650 mg PRN Q6HRS PRN PO MILD PAIN / TEMP > 100.3'F Last administered on 11/25/20at 09:08; Start 11/22/20 at 21:30 Psyllium Hydrophilic Mucilloid (Metamucil Fiber Packet) 1 pkt QHS PO Last administered on 11/24/20at 21:40; Start 11/23/20 at 21:00 Polyethylene Glycol (miraLAX PACKET) 17 gm 1X ONCE PO Last administered on 11/23/20at 21:40; Start 11/23/20 at 18:30; Stop 11/23/20 at 18:31; Status DC Polyethylene Glycol (miraLAX PACKET) 17 gm PRN DAILY PRN PO CONSTIPATION; Start 11/23/20 at 18:30 Bisacodyl (Dulcolax Supp) 10 mg PRN DAILY PRN NC CONSTIPATION; Start 11/23/20 at 18:30 Calcium Carbonate/ Glycine (Tums) 500 mg PRN AFTMEALHC PRN PO INDIGESTION Last administered on 11/24/20at 00:43; Start 11/23/20 at 23:30 Active Scripts Active Reported Hydrochlorothiazide Tablet (Hydrochlorothiazide) 25 Mg Tablet 25 Mg PO DAILY Mel (Sitagliptin Phosphate) 25 Mg Tablet 25 Mg PO DAILY Levothyroxine Sodium 137 Mcg Tablet 1 Tab PO DAILY Losartan Potassium 100 Mg Tablet 100 Mg PO DAILY Metformin Hcl 1,000 Mg Tablet 1,000 Mg PO BIDWMEALS Vitals/I & O Vital Sign - Last 24 Hours 11/24/20 11/24/20 11/24/20 11/24/20 15:00 19:50 20:00 23:24 Temp 98.0 98.5 98.3 98.0 98.5 98.3 Pulse 80 77 73 Resp 17 20 20 B/P (MAP) 153/61 (91) 181/85 (117) 166/83 (110) Pulse Ox 100 99 98 O2 Delivery Room Air Room Air Room Air Room Air 11/25/20 11/25/20 11/25/20 11/25/20 03:50 07:00 08:00 08:55 Temp 98.0 97.3 98.0 97.3 Pulse 78 72 72 Resp 20 18 B/P (MAP) 135/78 (97) 181/82 (115) 181/82 Pulse Ox 98 99 O2 Delivery Room Air Room Air Room Air 11/25/20 11:00 Temp 96.8 96.8 Pulse 69 Resp 18 B/P (MAP) 141/64 (89) Pulse Ox 97 O2 Delivery Room Air Intake and Output 11/24/20 11/24/20 11/25/20 15:00 23:00 07:00 Intake Total 800 ml 610 ml 1010 ml Output Total 200 ml 2100 ml 2550 ml Balance 600 ml -1490 ml -1540 ml Justifications for Admission Other Justification AJAY SHAH MD Nov 25, 2020 14:58
[2020-11-25 15:00] VITALS: BP 158/73
[2020-11-25] MEDS ORDERED: POTASSIUM CHLORIDE 20 MEQ TABLET.ER. PO ONE (15:00)
[2020-11-25] MEDS: cefTRIAXone IV Push 1 GM VIAL. IVP SCH (15:32)
[2020-11-25 19:00] VITALS: BP 155/85
--- NOTE | 2020-11-25 20:11 | PDOC ---
[facility] PROGRESS NOTE Date of Service DOS: DATE: 11/25/20 TIME: 20:10 Chief Complaint Chief Complaint A/P: Chest pain - likely GERD, but with pericardial effusion on CT, will consult cardiology, check echo ALBERTO - likely vasomotor nephropathy. Nephrology consulted. Bladder scan prn, strict I?O . No casts reported in UA, Check Pr/Cr Abnormal UA - with LE, WBCs, left sided stranding, likely pyelonephritis, will give rocephin. IVF. Pain control Hematuria - No renal or ureteral calculi. Likely from UTI, will monitor Right renal lesion at the upper pole of the right kidney measuring 1.6 cm - informed follow up necessary Uncontrolled DM - sliding scale, will hold oral hypoglycemic agents for ALBERTO Anemia -likely of chronic disease HTN - prn antihypertensives Pericardial effusion- moderate reported on CT . Consult cardiology Leukocytosis - with tachycardia, will treat sepsis from UTI FEN - ADA diet PPX - heparin FULL CODE Dispo - inpatient History of Present Illness History of Present Illness Ms Ledesma is a 64 yo ukrainian speaking female w/ PMHx HTN, HLD, DM2 who presents to ED C/O chest pressure 3/10 substernal, no radiation while she was laying down on 11/18/20 in the evening. She awoke on 11/19 and it persisted with associated heaviness. She came to ED at the insistence of her family. Patient notes that the pain resolved today but she felt uneasy sensation and heaviness in her chest Denies any nausea, vomiting, fever, chills, shortness of breath or dizziness. No fever or chills. Denies cough, hemoptysis. Does not use NSAIDs, and has been following with [facility] and recently has a new PCP, she is also on Metformin and Losartan. No history of renal disease to her knowledge but does note a "spot" on her right kidney she has been told about. Patient also states her urine has been darker then normal for the last 2 weeks, no specific dysuria. Noted in ED with lab abnormalities with WBC 18.3, Hb 10.4, platelets 283, NA 130, K4.1, BUN 41, CR 3.3, glucose 118, lipase 0, troponin 0, procalcitonin 0. UA with large blood and positive leukocyte esterase. EKG normal sinus rhythm with a leftward axis. Chest radiograph with increased lung markings. CT abdomen/pelvis mild stranding adjacent to the left renal pelvis, no renal or ureteral calculi. No evidence for obstructive uropathy. Vague mildly hyperattenuating lesion at the upper pole of the right kidney measuring 1.6 cm. Further evaluation with nonemergent/outpatient renal protocol CT or MRI is recommended. Moderate-sized Pericardial effusion noted on CT, confirmed on echocardiogram. Consults; nephrology and cardiology 11/21: Chest pressure resolved. Good UOP. Cr at 4. D/w family and nephrology the renal biopsy may be indicated this week. JOB, ANCA, Anti-GBM pending 11/22: Afebrile. CR 4.3 and BUN up to 44, phosphorus 5.1. Still with microscopic hematuria. Discussed with nephrology and patient and family via electroencephalographic technologist it is important to undergo renal biopsy today to have plan for further treatment and also prepare for dialysis. 11/23: Patient COVID-19 positive, breathing on room air. Afebrile. No acute events overnight. BUN/creatinine slightly improved, 39/3.9. Renal biopsy yesterday, pathology pending. Temporary dialysis catheter placed. Initiate HD per nephrology. 11/24: Patient seen and evaluated. He is afebrile, denies shortness of breath, breathing on room air. Awaiting renal biopsy results. 11/25: COVID-19 positive, breathing room air. Creatinine 3.5, continues to improve. Await renal biopsy results. Vitals/I&O Vitals/I&O: Vital Signs Date Time Temp Pulse Resp B/P (MAP) Pulse Ox O2 Delivery O2 Flow Rate FiO2 11/25/20 15:00 97.8 82 20 158/73 (101) 99 Room Air 97.8 I & O 11/24/20 11/24/20 11/25/20 15:00 23:00 07:00 Intake Total 800 ml 610 ml 1010 ml Output Total 200 ml 2100 ml 2550 ml Balance 600 ml -1490 ml -1540 ml Physical Exam General: Alert, Cooperative, No acute distress Heart: Regular rate, Other (distant heart tones ) Lungs: Clear Abdomen: Soft Extremities: No clubbing, Other (1+ bilateral LE edema ) Skin: No rashes, No significant lesion Labs Labs: Laboratory Tests Test 11/24/20 20:48 11/25/20 03:30 11/25/20 07:43 11/25/20 11:41 Glucose (Fingerstick) 189 mg/dL (70-99) 127 mg/dL (70-99) 136 mg/dL (70-99) White Blood Count 15.3 x10^3/uL (4.0-11.0) Red Blood Count 3.18 x10^6/uL (3.50-5.40) Hemoglobin 8.5 g/dL (12.0-15.5) Hematocrit 26.5 % (36.0-47.0) Mean Corpuscular Volume 83 fL (79-100) Mean Corpuscular Hemoglobin 27 pg (25-35) Mean Corpuscular Hemoglobin Concent 32 g/dL (31-37) Red Cell Distribution Width 13.8 % (11.5-14.5) Platelet Count 267 x10^3/uL (140-400) Neutrophils (%) (Auto) 75 % (31-73) Lymphocytes (%) (Auto) 15 % (24-48) Monocytes (%) (Auto) 6 % (0-9) Eosinophils (%) (Auto) 3 % (0-3) Basophils (%) (Auto) 1 % (0-3) Neutrophils # (Auto) 11.5 x10^3/uL (1.8-7.7) Lymphocytes # (Auto) 2.3 x10^3/uL (1.0-4.8) Monocytes # (Auto) 0.9 x10^3/uL (0.0-1.1) Eosinophils # (Auto) 0.5 x10^3/uL (0.0-0.7) Basophils # (Auto) 0.1 x10^3/uL (0.0-0.2) Sodium Level 140 mmol/L (136-145) Potassium Level 3.2 mmol/L (3.5-5.1) Chloride Level 106 mmol/L (98-107) Carbon Dioxide Level 22 mmol/L (21-32) Anion Gap 12 (6-14) Blood Urea Nitrogen 36 mg/dL (7-20) Creatinine 3.5 mg/dL (0.6-1.0) Estimated GFR (Cockcroft-Gault) 13.2 Glucose Level 118 mg/dL (70-99) Calcium Level 8.2 mg/dL (8.5-10.1) Test 11/25/20 16:28 Glucose (Fingerstick) 174 mg/dL (70-99) Assessment and Plan Assessmemt and Plan Problems Medical Problems: (1) Acute kidney failure Status: Acute Comment Review of Relevant I have reviewed the following items alexandro (where applicable) has been applied. Medications: Current Medications Medications (Trade) Dose Ordered Sig/Dennise Route PRN Reason Start Time Stop Time Status Last Admin Dose Admin Potassium Chloride (Klor-Con) 40 meq 1X ONCE PO 11/25/20 15:00 11/25/20 15:06 DC 11/25/20 15:31 Justifications for Admission Other Justification ASAF HUERTAS MD Nov 25, 2020 20:11
[2020-11-25] MEDS ORDERED: SODIUM CHLORIDE 0.65% NASAL SPRAY 45ML BOTTLE. NS PRN (20:30)
[2020-11-25] MEDS: PSYLLIUM HUSK (SUGAR FREE) 1 PKT PACKET PO SCH (21:25)
[2020-11-25 23:00] VITALS: BP 169/87
[2020-11-26 03:00] VITALS: BP 175/82
[2020-11-26 05:39] LABS: BASO # 0.1 x10^3/uL (0.0-0.2); BASO % 1 % (0-3); EOS # 0.6 x10^3/uL (0.0-0.7); EOS % 4 % (0-3); HEMATOCRIT 27.1 % (36.0-47.0); HEMOGLOBIN 8.6 g/dL (12.0-15.5); LYMPH # 2.4 x10^3/uL (1.0-4.8); LYMPH % 15 % (24-48); MEAN CORPUSCULAR HEMOGLOBIN 27 pg (25-35); MEAN CORPUSCULAR HGB CONC 32 g/dL (31-37); MEAN CORPUSCULAR VOLUME 83 fL (79-100); MONO # 0.9 x10^3/uL (0.0-1.1); MONO % 6 % (0-9); NEUT # 12.4 x10^3/uL (1.8-7.7); NEUT % 76 % (31-73); PLATELET COUNT 268 x10^3/uL (140-400); RED BLOOD COUNT 3.25 x10^6/uL (3.50-5.40); RED CELL DISTRIBUTION WIDTH 13.6 % (11.5-14.5); WHITE BLOOD COUNT 16.3 x10^3/uL (4.0-11.0)
[2020-11-26 05:44] LABS: CALCIUM 8.1 mg/dL (8.5-10.1); CREATININE 3.2 mg/dL (0.6-1.0); GFR 14.6; POTASSIUM 3.7 mmol/L (3.5-5.1)
[2020-11-26] MEDS: LEVOTHYROXINE 137 MCG TABLET PO SCH (05:56)
[2020-11-26 07:00] VITALS: BP 158/82
[2020-11-26] MEDS: INSULIN LISPRO 300 UNITS/3 ML VIAL. SQ SCH ×3 (08:00→17:00)
[2020-11-26] MEDS: LACTOBACILLUS RHAMNOSUS GG 1 CAPSULE. PO SCH ×2 (08:47→20:23)
[2020-11-26] MEDS: LINAGLIPTIN 5 MG TABLET PO SCH (08:47)
--- NOTE | 2020-11-26 09:18 | PDOC ---
[facility] PROGRESS NOTE Date of Service DOS: DATE: 11/26/20 TIME: 09:16 Chief Complaint Chief Complaint A/P: Chest pain - likely GERD, but with pericardial effusion on CT, will consult cardiology, check echo ALBERTO - likely vasomotor nephropathy. Nephrology consulted. Bladder scan prn, strict I?O . No casts reported in UA, Check Pr/Cr Abnormal UA - with LE, WBCs, left sided stranding, likely pyelonephritis, will give rocephin. IVF. Pain control Hematuria - No renal or ureteral calculi. Likely from UTI, will monitor Right renal lesion at the upper pole of the right kidney measuring 1.6 cm - informed follow up necessary Uncontrolled DM - sliding scale, will hold oral hypoglycemic agents for ALBERTO Anemia -likely of chronic disease HTN - prn antihypertensives Pericardial effusion- moderate reported on CT . Consult cardiology Leukocytosis - with tachycardia, will treat sepsis from UTI FEN - ADA diet PPX - heparin FULL CODE Dispo - inpatient History of Present Illness History of Present Illness Ms Ledesma is a 64 yo persian speaking female w/ PMHx HTN, HLD, DM2 who presents to ED C/O chest pressure 3/10 substernal, no radiation while she was laying down on 11/18/20 in the evening. She awoke on 11/19 and it persisted with associated heaviness. She came to ED at the insistence of her family. Patient notes that the pain resolved today but she felt uneasy sensation and heaviness in her chest Denies any nausea, vomiting, fever, chills, shortness of breath or dizziness. No fever or chills. Denies cough, hemoptysis. Does not use NSAIDs, and has been following with [facility] and recently has a new PCP, she is also on Metformin and Losartan. No history of renal disease to her knowledge but does note a "spot" on her right kidney she has been told about. Patient also states her urine has been darker then normal for the last 2 weeks, no specific dysuria. Noted in ED with lab abnormalities with WBC 18.3, Hb 10.4, platelets 283, NA 130, K4.1, BUN 41, CR 3.3, glucose 118, lipase 0, troponin 0, procalcitonin 0. UA with large blood and positive leukocyte esterase. EKG normal sinus rhythm with a leftward axis. Chest radiograph with increased lung markings. CT abdomen/pelvis mild stranding adjacent to the left renal pelvis, no renal or ureteral calculi. No evidence for obstructive uropathy. Vague mildly hyperattenuating lesion at the upper pole of the right kidney measuring 1.6 cm. Further evaluation with nonemergent/outpatient renal protocol CT or MRI is recommended. Moderate-sized Pericardial effusion noted on CT, confirmed on echocardiogram. Consults; nephrology and cardiology 11/21: Chest pressure resolved. Good UOP. Cr at 4. D/w family and nephrology the renal biopsy may be indicated this week. JOB, ANCA, Anti-GBM pending 11/22: Afebrile. CR 4.3 and BUN up to 44, phosphorus 5.1. Still with microscopic hematuria. Discussed with nephrology and patient and family via mail distribution scheme examiner it is important to undergo renal biopsy today to have plan for further treatment and also prepare for dialysis. 11/23: Patient COVID-19 positive, breathing on room air. Afebrile. No acute events overnight. BUN/creatinine slightly improved, 39/3.9. Renal biopsy yesterday, pathology pending. Temporary dialysis catheter placed. Initiate HD per nephrology. 11/24: Patient seen and evaluated. He is afebrile, denies shortness of breath, breathing on room air. Awaiting renal biopsy results. 11/25: COVID-19 positive, breathing room air. Creatinine 3.5, continues to improve. Await renal biopsy results. 11/26: No acute events overnight. Renal biopsy is pending. COVID +, afebrile, breathing room air. Creatinine continues to slowly improve, 3.2 today. Potassium 3.7. Vitals/I&O Vitals/I&O: Vital Signs Date Time Temp Pulse Resp B/P (MAP) Pulse Ox O2 Delivery O2 Flow Rate FiO2 11/26/20 08:50 78 158/82 11/26/20 07:00 99.9 24 98 Room Air 99.9 I & O 11/25/20 11/25/20 11/26/20 15:00 23:00 07:00 Intake Total 1400 ml 240 ml 1470 ml Output Total 2550 ml Balance 1400 ml 240 ml -1080 ml Physical Exam General: Alert, Cooperative, No acute distress Heart: Regular rate, Other (distant heart tones ) Lungs: Clear Abdomen: Soft Extremities: No clubbing, Other (1+ bilateral LE edema ) Skin: No rashes, No significant lesion Labs Labs: Laboratory Tests Test 11/25/20 11:41 11/25/20 16:28 11/26/20 05:00 11/26/20 08:02 Glucose (Fingerstick) 136 mg/dL (70-99) 174 mg/dL (70-99) 120 mg/dL (70-99) White Blood Count 16.3 x10^3/uL (4.0-11.0) Red Blood Count 3.25 x10^6/uL (3.50-5.40) Hemoglobin 8.6 g/dL (12.0-15.5) Hematocrit 27.1 % (36.0-47.0) Mean Corpuscular Volume 83 fL (79-100) Mean Corpuscular Hemoglobin 27 pg (25-35) Mean Corpuscular Hemoglobin Concent 32 g/dL (31-37) Red Cell Distribution Width 13.6 % (11.5-14.5) Platelet Count 268 x10^3/uL (140-400) Neutrophils (%) (Auto) 76 % (31-73) Lymphocytes (%) (Auto) 15 % (24-48) Monocytes (%) (Auto) 6 % (0-9) Eosinophils (%) (Auto) 4 % (0-3) Basophils (%) (Auto) 1 % (0-3) Neutrophils # (Auto) 12.4 x10^3/uL (1.8-7.7) Lymphocytes # (Auto) 2.4 x10^3/uL (1.0-4.8) Monocytes # (Auto) 0.9 x10^3/uL (0.0-1.1) Eosinophils # (Auto) 0.6 x10^3/uL (0.0-0.7) Basophils # (Auto) 0.1 x10^3/uL (0.0-0.2) Sodium Level 138 mmol/L (136-145) Potassium Level 3.7 mmol/L (3.5-5.1) Chloride Level 106 mmol/L (98-107) Carbon Dioxide Level 22 mmol/L (21-32) Anion Gap 10 (6-14) Blood Urea Nitrogen 36 mg/dL (7-20) Creatinine 3.2 mg/dL (0.6-1.0) Estimated GFR (Cockcroft-Gault) 14.6 Glucose Level 113 mg/dL (70-99) Calcium Level 8.1 mg/dL (8.5-10.1) Assessment and Plan Assessmemt and Plan Problems Medical Problems: (1) Acute kidney failure Status: Acute Comment Review of Relevant I have reviewed the following items alexandro (where applicable) has been applied. Medications: Current Medications Medications (Trade) Dose Ordered Sig/Dennise Route PRN Reason Start Time Stop Time Status Last Admin Dose Admin Potassium Chloride (Klor-Con) 40 meq 1X ONCE PO 11/25/20 15:00 11/25/20 15:06 DC 11/25/20 15:31 Sodium Chloride (Saline Mist Nasal) 1 parris PRN Q1HR PRN NS NASAL CONGESTION 11/25/20 20:30 11/25/20 21:25 Justifications for Admission Other Justification ASAF HUERTAS MD Nov 26, 2020 09:18
--- NOTE | 2020-11-26 10:05 | PDOC ---
PROGRESS NOTES Date of Service DATE: 11/26/20 TIME: 10:04 Subjective Subjective Creat is better today. replaced K. Kidney Bx preliminary report shows IgAN with Possible Crescents. Infection associated GN cannot be ruled out. Will defer to Primary team (D/w Dr Carrasco yest) to ascertain focus of infection. Will hold off on Steroids and CTX since creat is improving and infection may need to be ruled out. Can consider initiation of fish oil down the road. Objective Objective Vital Signs Date Time Temp Pulse Resp B/P (MAP) Pulse Ox O2 Delivery O2 Flow Rate FiO2 11/26/20 08:50 78 158/82 11/26/20 07:00 99.9 24 98 Room Air 99.9 11/22/20 14:55 2.0 Intake and Output 11/26/20 07:00 Intake Total 3110 ml Output Total 2550 ml Balance 560 ml Intake Oral 2160 ml IV Total 950 ml Output Urine Total 2550 ml # Bowel Movements 2 Assessment Assessment Problems Medical Problems: (1) Acute kidney failure Status: Acute Comment Review of Relevant I have reviewed the following items alexandro (where applicable) has been applied. Labs Laboratory Tests Test 11/24/20 10:41 11/24/20 15:42 11/24/20 20:48 11/25/20 03:30 Glucose (Fingerstick) 189 mg/dL (70-99) 139 mg/dL (70-99) 189 mg/dL (70-99) White Blood Count 15.3 x10^3/uL (4.0-11.0) Red Blood Count 3.18 x10^6/uL (3.50-5.40) Hemoglobin 8.5 g/dL (12.0-15.5) Hematocrit 26.5 % (36.0-47.0) Mean Corpuscular Volume 83 fL (79-100) Mean Corpuscular Hemoglobin 27 pg (25-35) Mean Corpuscular Hemoglobin Concent 32 g/dL (31-37) Red Cell Distribution Width 13.8 % (11.5-14.5) Platelet Count 267 x10^3/uL (140-400) Neutrophils (%) (Auto) 75 % (31-73) Lymphocytes (%) (Auto) 15 % (24-48) Monocytes (%) (Auto) 6 % (0-9) Eosinophils (%) (Auto) 3 % (0-3) Basophils (%) (Auto) 1 % (0-3) Neutrophils # (Auto) 11.5 x10^3/uL (1.8-7.7) Lymphocytes # (Auto) 2.3 x10^3/uL (1.0-4.8) Monocytes # (Auto) 0.9 x10^3/uL (0.0-1.1) Eosinophils # (Auto) 0.5 x10^3/uL (0.0-0.7) Basophils # (Auto) 0.1 x10^3/uL (0.0-0.2) Sodium Level 140 mmol/L (136-145) Potassium Level 3.2 mmol/L (3.5-5.1) Chloride Level 106 mmol/L (98-107) Carbon Dioxide Level 22 mmol/L (21-32) Anion Gap 12 (6-14) Blood Urea Nitrogen 36 mg/dL (7-20) Creatinine 3.5 mg/dL (0.6-1.0) Estimated GFR (Cockcroft-Gault) 13.2 Glucose Level 118 mg/dL (70-99) Calcium Level 8.2 mg/dL (8.5-10.1) Test 11/25/20 07:43 11/25/20 11:41 11/25/20 16:28 11/26/20 05:00 Glucose (Fingerstick) 127 mg/dL (70-99) 136 mg/dL (70-99) 174 mg/dL (70-99) White Blood Count 16.3 x10^3/uL (4.0-11.0) Red Blood Count 3.25 x10^6/uL (3.50-5.40) Hemoglobin 8.6 g/dL (12.0-15.5) Hematocrit 27.1 % (36.0-47.0) Mean Corpuscular Volume 83 fL (79-100) Mean Corpuscular Hemoglobin 27 pg (25-35) Mean Corpuscular Hemoglobin Concent 32 g/dL (31-37) Red Cell Distribution Width 13.6 % (11.5-14.5) Platelet Count 268 x10^3/uL (140-400) Neutrophils (%) (Auto) 76 % (31-73) Lymphocytes (%) (Auto) 15 % (24-48) Monocytes (%) (Auto) 6 % (0-9) Eosinophils (%) (Auto) 4 % (0-3) Basophils (%) (Auto) 1 % (0-3) Neutrophils # (Auto) 12.4 x10^3/uL (1.8-7.7) Lymphocytes # (Auto) 2.4 x10^3/uL (1.0-4.8) Monocytes # (Auto) 0.9 x10^3/uL (0.0-1.1) Eosinophils # (Auto) 0.6 x10^3/uL (0.0-0.7) Basophils # (Auto) 0.1 x10^3/uL (0.0-0.2) Sodium Level 138 mmol/L (136-145) Potassium Level 3.7 mmol/L (3.5-5.1) Chloride Level 106 mmol/L (98-107) Carbon Dioxide Level 22 mmol/L (21-32) Anion Gap 10 (6-14) Blood Urea Nitrogen 36 mg/dL (7-20) Creatinine 3.2 mg/dL (0.6-1.0) Estimated GFR (Cockcroft-Gault) 14.6 Glucose Level 113 mg/dL (70-99) Calcium Level 8.1 mg/dL (8.5-10.1) Test 11/26/20 08:02 Glucose (Fingerstick) 120 mg/dL (70-99) Laboratory Tests Test 11/25/20 11:41 11/25/20 16:28 11/26/20 05:00 11/26/20 08:02 Glucose (Fingerstick) 136 mg/dL (70-99) 174 mg/dL (70-99) 120 mg/dL (70-99) White Blood Count 16.3 x10^3/uL (4.0-11.0) Red Blood Count 3.25 x10^6/uL (3.50-5.40) Hemoglobin 8.6 g/dL (12.0-15.5) Hematocrit 27.1 % (36.0-47.0) Mean Corpuscular Volume 83 fL (79-100) Mean Corpuscular Hemoglobin 27 pg (25-35) Mean Corpuscular Hemoglobin Concent 32 g/dL (31-37) Red Cell Distribution Width 13.6 % (11.5-14.5) Platelet Count 268 x10^3/uL (140-400) Neutrophils (%) (Auto) 76 % (31-73) Lymphocytes (%) (Auto) 15 % (24-48) Monocytes (%) (Auto) 6 % (0-9) Eosinophils (%) (Auto) 4 % (0-3) Basophils (%) (Auto) 1 % (0-3) Neutrophils # (Auto) 12.4 x10^3/uL (1.8-7.7) Lymphocytes # (Auto) 2.4 x10^3/uL (1.0-4.8) Monocytes # (Auto) 0.9 x10^3/uL (0.0-1.1) Eosinophils # (Auto) 0.6 x10^3/uL (0.0-0.7) Basophils # (Auto) 0.1 x10^3/uL (0.0-0.2) Sodium Level 138 mmol/L (136-145) Potassium Level 3.7 mmol/L (3.5-5.1) Chloride Level 106 mmol/L (98-107) Carbon Dioxide Level 22 mmol/L (21-32) Anion Gap 10 (6-14) Blood Urea Nitrogen 36 mg/dL (7-20) Creatinine 3.2 mg/dL (0.6-1.0) Estimated GFR (Cockcroft-Gault) 14.6 Glucose Level 113 mg/dL (70-99) Calcium Level 8.1 mg/dL (8.5-10.1) Microbiology 11/19/20 Blood Culture - Final, Complete NO GROWTH AFTER 5 DAYS Medications Current Medications Ceftriaxone Sodium (Rocephin) 1 gm 1X ONCE IVP Last administered on 11/19/20at 14:44; Start 11/19/20 at 14:45; Stop 11/19/20 at 14:46; Status DC Morphine Sulfate (Morphine Sulfate) 4 mg 1X ONCE IV ; Start 11/19/20 at 14:45; Stop 11/19/20 at 14:46; Status DC Sodium Chloride 1,000 ml @ 1,000 mls/hr 1X ONCE IV Last administered on 11/19/20at 14:44; Start 11/19/20 at 14:45; Stop 11/19/20 at 15:44; Status DC Sodium Chloride 1,000 ml @ 1,000 mls/hr 1X ONCE IV Last administered on 11/19/20at 14:44; Start 11/19/20 at 14:45; Stop 11/19/20 at 15:44; Status DC Ondansetron HCl (Zofran) 4 mg PRN Q8HRS PRN IV NAUSEA/VOMITING; Start 11/19/20 at 17:15; Stop 11/20/20 at 17:14; Status DC Morphine Sulfate (Morphine Sulfate) 2 mg PRN Q2HR PRN IV PAIN; Start 11/19/20 at 17:15; Stop 11/20/20 at 17:14; Status DC Insulin Human Lispro (HumaLOG) 0-7 UNITS TIDWMEALS SQ Last administered on 11/25/20at 17:02; Start 11/20/20 at 17:00 Dextrose (Dextrose 50%-Water Syringe) 12.5 gm PRN Q15MIN PRN IV SEE COMMENTS; Start 11/20/20 at 14:00 Ceftriaxone Sodium (Rocephin) 1 gm Q24H IVP Last administered on 11/25/20at 15:32; Start 11/20/20 at 16:00 Levothyroxine Sodium (Synthroid) 137 mcg DAILY06 PO Last administered on 11/26/20at 05:56; Start 11/21/20 at 06:00 Linagliptin (Tradjenta) 5 mg DAILY PO Last administered on 11/26/20at 08:47; Start 11/21/20 at 09:00 Sodium Chloride 1,000 ml @ 75 mls/hr [id number] IV Last administered on 11/25/20at 21:26; Start 11/21/20 at 11:30 Lactobacillus Rhamnosus (Culturelle) 1 cap BID PO Last administered on 11/26/20at 08:47; Start 11/21/20 at 21:00 Lidocaine HCl (Buffered Lidocaine 1%) 3 ml STK-MED ONCE .ROUTE ; Start 11/22/20 at 14:08; Stop 11/22/20 at 14:08; Status DC Gelatin (Gelfoam Size 12-7mm) 1 each STK-MED ONCE .ROUTE ; Start 11/22/20 at 14:09; Stop 11/22/20 at 14:09; Status DC Amlodipine Besylate (Norvasc) 5 mg DAILY PO Last administered on 11/26/20at 08:50; Start 11/23/20 at 09:00 Amlodipine Besylate (Norvasc) 5 mg 1X ONCE PO Last administered on 11/22/20at 16:23; Start 11/22/20 at 14:15; Stop 11/22/20 at 14:16; Status DC Midazolam HCl (Versed) 2 mg STK-MED ONCE .ROUTE ; Start 11/22/20 at 14:15; Stop 11/22/20 at 14:15; Status DC Fentanyl Citrate (Fentanyl 2ml Vial) 100 mcg STK-MED ONCE .ROUTE ; Start 11/22/20 at 14:15; Stop 11/22/20 at 14:15; Status DC Flumazenil (Romazicon) 0.5 mg STK-MED ONCE IV ; Start 11/22/20 at 14:15; Stop 11/22/20 at 14:15; Status DC Naloxone HCl (Narcan) 0.4 mg STK-MED ONCE .ROUTE ; Start 11/22/20 at 14:15; Stop 11/22/20 at 14:16; Status DC Lidocaine HCl (Buffered Lidocaine 1%) 18 ml 1X ONCE INJ Last administered on 11/22/20at 15:17; Start 11/22/20 at 14:30; Stop 11/22/20 at 14:32; Status DC Hydralazine HCl (Apresoline Inj) 10 mg 1X ONCE IVP Last administered on 11/22/20at 15:04; Start 11/22/20 at 15:00; Stop 11/22/20 at 15:01; Status DC Midazolam HCl (Versed) 2 mg 1X ONCE IV Last administered on 11/22/20at 14:30; Start 11/22/20 at 15:30; Stop 11/22/20 at 15:32; Status DC Fentanyl Citrate (Fentanyl 2ml Vial) 100 mcg 1X ONCE IV Last administered on 11/22/20at 14:30; Start 11/22/20 at 15:30; Stop 11/22/20 at 15:32; Status DC Gelatin (Gelfoam Size 12-7mm) 1 each 1X ONCE TP Last administered on 11/22/20at 14:50; Start 11/22/20 at 15:30; Stop 11/22/20 at 15:32; Status DC Acetaminophen (Tylenol) 650 mg PRN Q6HRS PRN PO MILD PAIN / TEMP > 100.3'F Last administered on 11/25/20at 09:08; Start 11/22/20 at 21:30 Psyllium Hydrophilic Mucilloid (Metamucil Fiber Packet) 1 pkt QHS PO Last administered on 11/25/20at 21:25; Start 11/23/20 at 21:00 Polyethylene Glycol (miraLAX PACKET) 17 gm 1X ONCE PO Last administered on 11/23/20at 21:40; Start 11/23/20 at 18:30; Stop 11/23/20 at 18:31; Status DC Polyethylene Glycol (miraLAX PACKET) 17 gm PRN DAILY PRN PO CONSTIPATION; Sta rt 11/23/20 at 18:30 Bisacodyl (Dulcolax Supp) 10 mg PRN DAILY PRN ID CONSTIPATION; Start 11/23/20 at 18:30 Calcium Carbonate/ Glycine (Tums) 500 mg PRN AFTMEALHC PRN PO INDIGESTION Last administered on 11/24/20at 00:43; Start 11/23/20 at 23:30 Potassium Chloride (Klor-Con) 40 meq 1X ONCE PO Last administered on 11/25/20at 15:31; Start 11/25/20 at 15:00; Stop 11/25/20 at 15:06; Status DC Sodium Chloride (Saline Mist Nasal) 1 parris PRN Q1HR PRN NS NASAL CONGESTION Last administered on 11/25/20at 21:25; Start 11/25/20 at 20:30 Active Scripts Active Reported Hydrochlorothiazide Tablet (Hydrochlorothiazide) 25 Mg Tablet 25 Mg PO DAILY Januvia (Sitagliptin Phosphate) 25 Mg Tablet 25 Mg PO DAILY Levothyroxine Sodium 137 Mcg Tablet 1 Tab PO DAILY Losartan Potassium 100 Mg Tablet 100 Mg PO DAILY Metformin Hcl 1,000 Mg Tablet 1,000 Mg PO BIDWMEALS Vitals/I & O Vital Sign - Last 24 Hours 11/25/20 11/25/20 11/25/20 11/25/20 11:00 15:00 19:00 20:00 Temp 96.8 97.8 98.2 96.8 97.8 98.2 Pulse 69 82 74 Resp 18 20 18 B/P (MAP) 141/64 (89) 158/73 (101) 155/85 (108) Pulse Ox 97 99 99 O2 Delivery Room Air Room Air Room Air Room Air 11/25/20 11/26/20 11/26/20 11/26/20 23:00 03:00 07:00 08:50 Temp 98.3 98.1 99.9 98.3 98.1 99.9 Pulse 77 78 78 78 Resp 18 18 24 B/P (MAP) 169/87 (114) 175/82 (113) 158/82 (107) 158/82 Pulse Ox 99 99 98 O2 Delivery Room Air Room Air Room Air Intake and Output 11/25/20 11/25/20 11/26/20 15:00 23:00 07:00 Intake Total 1400 ml 240 ml 1470 ml Output Total 2550 ml Balance 1400 ml 240 ml -1080 ml Justifications for Admission Other Justification AJAY SHAH MD Nov 26, 2020 10:05
[2020-11-26 11:00] VITALS: BP 175/88
[2020-11-26] MEDS: IV NORMAL SALINE 1000ML BAG 1,000 ML IV SCH ×2 (11:42→23:38)
[2020-11-26] MEDS: HEPARIN for SUB-Q USE 5,000 UNIT/ML VIAL. SQ SCH ×2 (11:44→20:25)
--- NOTE | 2020-11-26 14:32 | NUR ---
Hanely catheter removed at 1345, no complications noted, we'll await for spontaneous voiding.
[2020-11-26 15:00] VITALS: BP 159/83
[2020-11-26] MEDS: CEFEPIME HCL IV Push 1 GM VIAL. IVP SCH (16:12)
--- NOTE | 2020-11-26 17:48 | NUR ---
spontaneous void at 1600, 200ml pink urine
[2020-11-26 19:00] VITALS: BP 183/81
[2020-11-26] MEDS: PSYLLIUM HUSK (SUGAR FREE) 1 PKT PACKET PO SCH (20:23)
[2020-11-26 23:31] VITALS: BP 192/91
[2020-11-27] MEDS: METOPROLOL IV PUSH 5 MG/5 ML VIAL. IVP PRN (00:01)
[2020-11-27 03:00] VITALS: BP 144/56
[2020-11-27] MEDS: LEVOTHYROXINE 137 MCG TABLET PO SCH (05:57)
[2020-11-27] MEDS: HEPARIN for SUB-Q USE 5,000 UNIT/ML VIAL. SQ SCH ×3 (06:00→20:51)
[2020-11-27 07:17] LABS: BASO # 0.1 x10^3/uL (0.0-0.2); BASO % 1 % (0-3); EOS # 0.7 x10^3/uL (0.0-0.7); EOS % 4 % (0-3); HEMATOCRIT 26.6 % (36.0-47.0); HEMOGLOBIN 8.5 g/dL (12.0-15.5); LYMPH # 2.8 x10^3/uL (1.0-4.8); LYMPH % 18 % (24-48); MEAN CORPUSCULAR HEMOGLOBIN 27 pg (25-35); MEAN CORPUSCULAR HGB CONC 32 g/dL (31-37); MEAN CORPUSCULAR VOLUME 83 fL (79-100); MONO # 0.8 x10^3/uL (0.0-1.1); MONO % 5 % (0-9); NEUT % 72 % (31-73); PLATELET COUNT 292 x10^3/uL (140-400); RED BLOOD COUNT 3.19 x10^6/uL (3.50-5.40); RED CELL DISTRIBUTION WIDTH 13.9 % (11.5-14.5); WHITE BLOOD COUNT 15.3 x10^3/uL (4.0-11.0)
[2020-11-27 07:29] VITALS: BP 155/74
[2020-11-27] MEDS: LACTOBACILLUS RHAMNOSUS GG 1 CAPSULE. PO SCH ×2 (07:55→20:49)
[2020-11-27] MEDS: LINAGLIPTIN 5 MG TABLET PO SCH (07:56)
[2020-11-27] MEDS: INSULIN LISPRO 300 UNITS/3 ML VIAL. SQ SCH ×3 (08:00→17:00)
--- NOTE | 2020-11-27 10:29 | PDOC ---
PROGRESS NOTES Date of Service: DATE: 11/27/20 TIME: 10:29 Chief Complaint Chief Complaint IMPRESSION Chest pain - likely GERD, but with pericardial effusion on CT, will consult cardiology, check echo ALBERTO - likely vasomotor nephropathy. Nephrology consulted. Bladder scan prn, strict I?O . No casts reported in UA, Check Pr/Cr Abnormal UA - with LE, WBCs, left sided stranding, likely pyelonephritis, will give rocephin. IVF. Pain control Hematuria - No renal or ureteral calculi. Likely from UTI, will monitor Right renal lesion at the upper pole of the right kidney measuring 1.6 cm - informed follow up necessary Uncontrolled DM - sliding scale, will hold oral hypoglycemic agents for ALBERTO Anemia -likely of chronic disease HTN - prn antihypertensives Pericardial effusion- moderate reported on CT . Consult cardiology Leukocytosis - with tachycardia, will treat sepsis from UTI HYPERTENSION, SUBOPTIMAL CONTROL FEN - ADA diet PPX - heparin FULL CODE Dispo - inpatient INCREASE NORVASC CR SLOWLY IMPROVING NO STEROIDS OR CYTOXAN GIVEN COVID 19 D/W RN History of Present Illness History of Present Illness hpi Ms Ledesma is a 64 yo polish speaking female w/ PMHx HTN, HLD, DM2 who presents to ED C/O chest pressure 3/10 substernal, no radiation while she was laying down on 11/18/20 in the evening. She awoke on 11/19 and it persisted with associated heaviness. She came to ED at the insistence of her family. Patient notes that the pain resolved today but she felt uneasy sensation and heaviness in her chest Denies any nausea, vomiting, fever, chills, shortness of breath or dizziness. No fever or chills. Denies cough, hemoptysis. Does not use NSAIDs, and has been following with [facility] and recently has a new PCP, she is also on Metformin and Losartan. No history of renal disease to her knowledge but does note a "spot" on her right kidney she has been told about. Patient also states her urine has been darker then normal for the last 2 weeks, no specific dysuria. Noted in ED with lab abnormalities with WBC 18.3, Hb 10.4, platelets 283, NA 130, K4.1, BUN 41, CR 3.3, glucose 118, lipase 0, troponin 0, procalcitonin 0. UA with large blood and positive leukocyte esterase. EKG normal sinus rhythm with a leftward axis. Chest radiograph with increased lung markings. CT abdomen/pelvis mild stranding adjacent to the left renal pelvis, no renal or ureteral calculi. No evidence for obstructive uropathy. Vague mildly hyperattenuating lesion at the upper pole of the right kidney measuring 1.6 cm. Further evaluation with nonemergent/outpatient renal protocol CT or MRI is recommended. Moderate-sized Pericardial effusion noted on CT, confirmed on echocardiogram. Consults; nephrology and cardiology 11/21: Chest pressure resolved. Good UOP. Cr at 4. D/w family and nephrology the renal biopsy may be indicated this week. JOB, ANCA, Anti-GBM pending 11/22: Afebrile. CR 4.3 and BUN up to 44, phosphorus 5.1. Still with microscopic hematuria. Discussed with nephrology and patient and family via spot machine operator it is important to undergo renal biopsy today to have plan for further treatment and also prepare for dialysis. 11/23: Patient COVID-19 positive, breathing on room air. Afebrile. No acute events overnight. BUN/creatinine slightly improved, 39/3.9. Renal biopsy yesterday, pathology pending. Temporary dialysis catheter placed. Initiate HD per nephrology. 11/24: Patient seen and evaluated. He is afebrile, denies shortness of breath, breathing on room air. Awaiting renal biopsy results. 11/25: COVID-19 positive, breathing room air. Creatinine 3.5, continues to improve. Await renal biopsy results. 11/26: No acute events overnight. Renal biopsy is pending. COVID +, afebrile, breathing room air. Creatinine continues to slowly improve, 3.2 today. Potassium 3.7. 11/27 BP elevated norvasc increased , fever last pm, , now on iv cefepime, ID CONSULT D/W RN Vitals Vitals Vital Signs Date Time Temp Pulse Resp B/P (MAP) Pulse Ox O2 Delivery O2 Flow Rate FiO2 11/27/20 08:00 Room Air 11/27/20 07:56 70 155/74 11/27/20 07:29 97.0 18 98 97.0 Physical Exam General: Alert, Oriented X3, Cooperative, No acute distress Heart: Regular rate, Normal S2, Other (distant heart tones ) Lungs: Clear Abdomen: Soft Extremities: No clubbing, Other (1+ bilateral LE edema ) Skin: No rashes, No significant lesion Labs LABS Laboratory Tests Test 11/26/20 11:59 11/26/20 16:27 11/27/20 05:19 Glucose (Fingerstick) 153 mg/dL (70-99) 126 mg/dL (70-99) White Blood Count 15.3 x10^3/uL (4.0-11.0) Red Blood Count 3.19 x10^6/uL (3.50-5.40) Hemoglobin 8.5 g/dL (12.0-15.5) Hematocrit 26.6 % (36.0-47.0) Mean Corpuscular Volume 83 fL (79-100) Mean Corpuscular Hemoglobin 27 pg (25-35) Mean Corpuscular Hemoglobin Concent 32 g/dL (31-37) Red Cell Distribution Width 13.9 % (11.5-14.5) Platelet Count 292 x10^3/uL (140-400) Neutrophils (%) (Auto) 72 % (31-73) Lymphocytes (%) (Auto) 18 % (24-48) Monocytes (%) (Auto) 5 % (0-9) Eosinophils (%) (Auto) 4 % (0-3) Basophils (%) (Auto) 1 % (0-3) Neutrophils # (Auto) 11.0 x10^3/uL (1.8-7.7) Lymphocytes # (Auto) 2.8 x10^3/uL (1.0-4.8) Monocytes # (Auto) 0.8 x10^3/uL (0.0-1.1) Eosinophils # (Auto) 0.7 x10^3/uL (0.0-0.7) Basophils # (Auto) 0.1 x10^3/uL (0.0-0.2) Assessment and Plan Assessmemt and Plan Problems Medical Problems: (1) Acute kidney failure Status: Acute Comment Review of Relevant I have reviewed the following items alexandro (where applicable) has been applied. Labs Laboratory Tests Test 11/25/20 11:41 11/25/20 16:28 11/26/20 05:00 11/26/20 08:02 Glucose (Fingerstick) 136 mg/dL (70-99) 174 mg/dL (70-99) 120 mg/dL (70-99) White Blood Count 16.3 x10^3/uL (4.0-11.0) Red Blood Count 3.25 x10^6/uL (3.50-5.40) Hemoglobin 8.6 g/dL (12.0-15.5) Hematocrit 27.1 % (36.0-47.0) Mean Corpuscular Volume 83 fL (79-100) Mean Corpuscular Hemoglobin 27 pg (25-35) Mean Corpuscular Hemoglobin Concent 32 g/dL (31-37) Red Cell Distribution Width 13.6 % (11.5-14.5) Platelet Count 268 x10^3/uL (140-400) Neutrophils (%) (Auto) 76 % (31-73) Lymphocytes (%) (Auto) 15 % (24-48) Monocytes (%) (Auto) 6 % (0-9) Eosinophils (%) (Auto) 4 % (0-3) Basophils (%) (Auto) 1 % (0-3) Neutrophils # (Auto) 12.4 x10^3/uL (1.8-7.7) Lymphocytes # (Auto) 2.4 x10^3/uL (1.0-4.8) Monocytes # (Auto) 0.9 x10^3/uL (0.0-1.1) Eosinophils # (Auto) 0.6 x10^3/uL (0.0-0.7) Basophils # (Auto) 0.1 x10^3/uL (0.0-0.2) Sodium Level 138 mmol/L (136-145) Potassium Level 3.7 mmol/L (3.5-5.1) Chloride Level 106 mmol/L (98-107) Carbon Dioxide Level 22 mmol/L (21-32) Anion Gap 10 (6-14) Blood Urea Nitrogen 36 mg/dL (7-20) Creatinine 3.2 mg/dL (0.6-1.0) Estimated GFR (Cockcroft-Gault) 14.6 Glucose Level 113 mg/dL (70-99) Calcium Level 8.1 mg/dL (8.5-10.1) Test 11/26/20 11:59 11/26/20 16:27 11/27/20 05:19 Glucose (Fingerstick) 153 mg/dL (70-99) 126 mg/dL (70-99) White Blood Count 15.3 x10^3/uL (4.0-11.0) Red Blood Count 3.19 x10^6/uL (3.50-5.40) Hemoglobin 8.5 g/dL (12.0-15.5) Hematocrit 26.6 % (36.0-47.0) Mean Corpuscular Volume 83 fL (79-100) Mean Corpuscular Hemoglobin 27 pg (25-35) Mean Corpuscular Hemoglobin Concent 32 g/dL (31-37) Red Cell Distribution Width 13.9 % (11.5-14.5) Platelet Count 292 x10^3/uL (140-400) Neutrophils (%) (Auto) 72 % (31-73) Lymphocytes (%) (Auto) 18 % (24-48) Monocytes (%) (Auto) 5 % (0-9) Eosinophils (%) (Auto) 4 % (0-3) Basophils (%) (Auto) 1 % (0-3) Neutrophils # (Auto) 11.0 x10^3/uL (1.8-7.7) Lymphocytes # (Auto) 2.8 x10^3/uL (1.0-4.8) Monocytes # (Auto) 0.8 x10^3/uL (0.0-1.1) Eosinophils # (Auto) 0.7 x10^3/uL (0.0-0.7) Basophils # (Auto) 0.1 x10^3/uL (0.0-0.2) Laboratory Tests Test 11/26/20 11:59 11/26/20 16:27 11/27/20 05:19 Glucose (Fingerstick) 153 mg/dL (70-99) 126 mg/dL (70-99) White Blood Count 15.3 x10^3/uL (4.0-11.0) Red Blood Count 3.19 x10^6/uL (3.50-5.40) Hemoglobin 8.5 g/dL (12.0-15.5) Hematocrit 26.6 % (36.0-47.0) Mean Corpuscular Volume 83 fL (79-100) Mean Corpuscular Hemoglobin 27 pg (25-35) Mean Corpuscular Hemoglobin Concent 32 g/dL (31-37) Red Cell Distribution Width 13.9 % (11.5-14.5) Platelet Count 292 x10^3/uL (140-400) Neutrophils (%) (Auto) 72 % (31-73) Lymphocytes (%) (Auto) 18 % (24-48) Monocytes (%) (Auto) 5 % (0-9) Eosinophils (%) (Auto) 4 % (0-3) Basophils (%) (Auto) 1 % (0-3) Neutrophils # (Auto) 11.0 x10^3/uL (1.8-7.7) Lymphocytes # (Auto) 2.8 x10^3/uL (1.0-4.8) Monocytes # (Auto) 0.8 x10^3/uL (0.0-1.1) Eosinophils # (Auto) 0.7 x10^3/uL (0.0-0.7) Basophils # (Auto) 0.1 x10^3/uL (0.0-0.2) Microbiology 11/19/20 Blood Culture - Final, Complete NO GROWTH AFTER 5 DAYS Medications Current Medications Ceftriaxone Sodium (Rocephin) 1 gm 1X ONCE IVP Last administered on 11/19/20at 14:44; Start 11/19/20 at 14:45; Stop 11/19/20 at 14:46; Status DC Morphine Sulfate (Morphine Sulfate) 4 mg 1X ONCE IV ; Start 11/19/20 at 14:45; Stop 11/19/20 at 14:46; Status DC Sodium Chloride 1,000 ml @ 1,000 mls/hr 1X ONCE IV Last administered on 11/19/20at 14:44; Start 11/19/20 at 14:45; Stop 11/19/20 at 15:44; Status DC Sodium Chloride 1,000 ml @ 1,000 mls/hr 1X ONCE IV Last administered on 11/19/20at 14:44; Start 11/19/20 at 14:45; Stop 11/19/20 at 15:44; Status DC Ondansetron HCl (Zofran) 4 mg PRN Q8HRS PRN IV NAUSEA/VOMITING; Start 11/19/20 at 17:15; Stop 11/20/20 at 17:14; Status DC Morphine Sulfate (Morphine Sulfate) 2 mg PRN Q2HR PRN IV PAIN; Start 11/19/20 at 17:15; Stop 11/20/20 at 17:14; Status DC Insulin Human Lispro (HumaLOG) 0-7 UNITS TIDWMEALS SQ Last administered on 11/25/20at 17:02; Start 11/20/20 at 17:00 Dextrose (Dextrose 50%-Water Syringe) 12.5 gm PRN Q15MIN PRN IV SEE COMMENTS; Start 11/20/20 at 14:00 Ceftriaxone Sodium (Rocephin) 1 gm Q24H IVP Last administered on 11/25/20at 15:32; Start 11/20/20 at 16:00; Stop 11/26/20 at 14:19; Status DC Levothyroxine Sodium (Synthroid) 137 mcg DAILY06 PO Last administered on 11/27/20at 05:57; Start 11/21/20 at 06:00 Linagliptin (Tradjenta) 5 mg DAILY PO Last administered on 11/27/20at 07:56; Start 11/21/20 at 09:00 Sodium Chloride 1,000 ml @ 75 mls/hr [id number] IV Last administered on 11/26/20at 23:38; Start 11/21/20 at 11:30 Lactobacillus Rhamnosus (Culturelle) 1 cap BID PO Last administered on 11/27/20at 07:55; Start 11/21/20 at 21:00 Lidocaine HCl (Buffered Lidocaine 1%) 3 ml STK-MED ONCE .ROUTE ; Start 11/22/20 at 14:08; Stop 11/22/20 at 14:08; Status DC Gelatin (Gelfoam Size 12-7mm) 1 each STK-MED ONCE .ROUTE ; Start 11/22/20 at 14:09; Stop 11/22/20 at 14:09; Status DC Amlodipine Besylate (Norvasc) 5 mg DAILY PO Last administered on 11/27/20at 07:56; Start 11/23/20 at 09:00 Amlodipine Besylate (Norvasc) 5 mg 1X ONCE PO Last administered on 11/22/20at 16:23; Start 11/22/20 at 14:15; Stop 11/22/20 at 14:16; Status DC Midazolam HCl (Versed) 2 mg STK-MED ONCE .ROUTE ; Start 11/22/20 at 14:15; Stop 11/22/20 at 14:15; Status DC Fentanyl Citrate (Fentanyl 2ml Vial) 100 mcg STK-MED ONCE .ROUTE ; Start 11/22/20 at 14:15; Stop 11/22/20 at 14:15; Status DC Flumazenil (Romazicon) 0.5 mg STK-MED ONCE IV ; Start 11/22/20 at 14:15; Stop 11/22/20 at 14:15; Status DC Naloxone HCl (Narcan) 0.4 mg STK-MED ONCE .ROUTE ; Start 11/22/20 at 14:15; Stop 11/22/20 at 14:16; Status DC Lidocaine HCl (Buffered Lidocaine 1%) 18 ml 1X ONCE INJ Last administered on 11/22/20at 15:17; Start 11/22/20 at 14:30; Stop 11/22/20 at 14:32; Status DC Hydralazine HCl (Apresoline Inj) 10 mg 1X ONCE IVP Last administered on 11/22/20at 15:04; Start 11/22/20 at 15:00; Stop 11/22/20 at 15:01; Status DC Midazolam HCl (Versed) 2 mg 1X ONCE IV Last administered on 11/22/20at 14:30; Start 11/22/20 at 15:30; Stop 11/22/20 at 15:32; Status DC Fentanyl Citrate (Fentanyl 2ml Vial) 100 mcg 1X ONCE IV Last administered on 11/22/20at 14:30; Start 11/22/20 at 15:30; Stop 11/22/20 at 15:32; Status DC Gelatin (Gelfoam Size 12-7mm) 1 each 1X ONCE TP Last administered on at 14:50; Start 11/22/20 at 15:30; Stop 11/22/20 at 15:32; Status DC Acetaminophen (Tylenol) 650 mg PRN Q6HRS PRN PO MILD PAIN / TEMP > 100.3'F Last administered on 11/25/20at 09:08; Start 11/22/20 at 21:30 Psyllium Hydrophilic Mucilloid (Metamucil Fiber Packet) 1 pkt QHS PO Last administered on 11/26/20at 20:23; Start 11/23/20 at 21:00 Polyethylene Glycol (miraLAX PACKET) 17 gm 1X ONCE PO Last administered on 11/23/20at 21:40; Start 11/23/20 at 18:30; Stop 11/23/20 at 18:31; Status DC Polyethylene Glycol (miraLAX PACKET) 17 gm PRN DAILY PRN PO CONSTIPATION; Start 11/23/20 at 18:30 Bisacodyl (Dulcolax Supp) 10 mg PRN DAILY PRN FL CONSTIPATION; Start 11/23/20 at 18:30 Calcium Carbonate/ Glycine (Tums) 500 mg PRN AFTMEALHC PRN PO INDIGESTION Last administered on 11/24/20at 00:43; Start 11/23/20 at 23:30 Potassium Chloride (Klor-Con) 40 meq 1X ONCE PO Last administered on 11/25/20at 15:31; Start 11/25/20 at 15:00; Stop 11/25/20 at 15:06; Status DC Sodium Chloride (Saline Mist Nasal) 1 parris PRN Q1HR PRN NS NASAL CONGESTION Last administered on 11/25/20at 21:25; Start 11/25/20 at 20:30 Heparin Sodium (Porcine) (Heparin Sodium) 5,000 unit Q8HRS SQ Last administered on 11/27/20at 06:00; Start 11/26/20 at 11:00 Cefepime HCl (Maxipime) 1 gm Q24H IVP Last administered on 11/26/20at 16:12; Start 11/26/20 at 16:00 Metoprolol Tartrate (Lopressor Vial) 5 mg PRN Q6HRS PRN IVP HYPERTENSION Last administered on 11/27/20at 00:01; Start 11/26/20 at 23:30 Active Scripts Active Reported Hydrochlorothiazide Tablet (Hydrochlorothiazide) 25 Mg Tablet 25 Mg PO DAILY Januvia (Sitagliptin Phosphate) 25 Mg Tablet 25 Mg PO DAILY Levothyroxine Sodium 137 Mcg Tablet 1 Tab PO DAILY Losartan Potassium 100 Mg Tablet 100 Mg PO DAILY Metformin Hcl 1,000 Mg Tablet 1,000 Mg PO BIDWMEALS Vitals/I & O Vital Sign - Last 24 Hours 11/26/20 11/26/20 11/26/20 11/26/20 11:00 15:00 19:00 20:00 Temp 100.4 100.6 98.4 100.4 100.6 98.4 Pulse 77 74 82 Resp 20 20 18 B/P (MAP) 175/88 (117) 159/83 (108) 183/81 (115) Pulse Ox 99 99 99 O2 Delivery Room Air Room Air Room Air Room Air 11/26/20 11/27/20 11/27/20 11/27/20 23:31 00:01 03:00 07:29 Temp 98.3 98.2 97.0 98.3 98.2 97.0 Pulse 81 75 78 70 Resp 18 18 18 B/P (MAP) 192/91 (124) 167/82 144/56 (85) 155/74 (101) Pulse Ox 100 98 98 O2 Delivery Room Air Room Air Room Air 11/27/20 11/27/20 07:56 08:00 Pulse 70 B/P (MAP) 155/74 O2 Delivery Room Air l Intake and Output 11/26/20 11/26/20 11/27/20 15:00 23:00 07:00 Intake Total 1000 ml 360 ml Output Total 1200 ml 1000 ml 700 ml Balance -200 ml -1000 ml -340 ml Justicifation of Admission Dx: Justifications for Admission: Justification of Admission Dx: Yes Acute Renal Failure: 3-Fold Rise in Serum Crea OTTONIEL THOMAS MD Nov 27, 2020 10:29
[2020-11-27 10:58] LABS: CREATININE 3.1 mg/dL (0.6-1.0); GFR 15.2; POTASSIUM 3.8 mmol/L (3.5-5.1)
[2020-11-27 11:37] VITALS: BP 160/90
--- NOTE | 2020-11-27 12:55 | PDOC ---
Renal-Progress Notes Subjective Notes Notes NO NEW COMPLAINTS History of Present Illness Hx of present illness STABLE Vitals Vitals Vital Signs Date Time Temp Pulse Resp B/P (MAP) Pulse Ox O2 Delivery O2 Flow Rate FiO2 11/27/20 11:37 97.2 78 18 160/90 (113) 100 Room Air 97.2 Weight Weight [ ] I.O. Intake and Output Intake and Output 11/27/20 07:00 Intake Total 1360 ml Output Total 2900 ml Balance -1540 ml Intake Oral 1360 ml Output Urine Total 2900 ml Labs Labs Laboratory Tests Test 11/26/20 16:27 11/27/20 05:19 Glucose (Fingerstick) 126 mg/dL (70-99) White Blood Count 15.3 x10^3/uL (4.0-11.0) Red Blood Count 3.19 x10^6/uL (3.50-5.40) Hemoglobin 8.5 g/dL (12.0-15.5) Hematocrit 26.6 % (36.0-47.0) Mean Corpuscular Volume 83 fL (79-100) Mean Corpuscular Hemoglobin 27 pg (25-35) Mean Corpuscular Hemoglobin Concent 32 g/dL (31-37) Red Cell Distribution Width 13.9 % (11.5-14.5) Platelet Count 292 x10^3/uL (140-400) Neutrophils (%) (Auto) 72 % (31-73) Lymphocytes (%) (Auto) 18 % (24-48) Monocytes (%) (Auto) 5 % (0-9) Eosinophils (%) (Auto) 4 % (0-3) Basophils (%) (Auto) 1 % (0-3) Neutrophils # (Auto) 11.0 x10^3/uL (1.8-7.7) Lymphocytes # (Auto) 2.8 x10^3/uL (1.0-4.8) Monocytes # (Auto) 0.8 x10^3/uL (0.0-1.1) Eosinophils # (Auto) 0.7 x10^3/uL (0.0-0.7) Basophils # (Auto) 0.1 x10^3/uL (0.0-0.2) Sodium Level 141 mmol/L (136-145) Potassium Level 3.8 mmol/L (3.5-5.1) Chloride Level 108 mmol/L (98-107) Carbon Dioxide Level 21 mmol/L (21-32) Anion Gap 12 (6-14) Blood Urea Nitrogen 34 mg/dL (7-20) Creatinine 3.1 mg/dL (0.6-1.0) Estimated GFR (Cockcroft-Gault) 15.2 Glucose Level 108 mg/dL (70-99) Calcium Level 8.0 mg/dL (8.5-10.1) Micro Micro Microbiology 11/19/20 Blood Culture - Final, Complete NO GROWTH AFTER 5 DAYS Review of Systems Constitutional: yes: alert, oriented Ears/Nose/Throat: Yes: no symptom reported Eyes: Yes: no symptom reported Pulmonary: Yes no symptom reported Cardiovascular: Yes no symptom reported Gastrointestional: Yes: no symptom reported Musculoskeletal: Yes: no symptom reported Skin: Yes no symptom reported Psychiatric/Neurological: Yes: no symptom reported Physical Exam General Appearance: no apparent distress, febrile Respiratory: decreased breath sounds Heart: S1S2 Abdomen: soft, bowel sounds present Genitourinary: bladder flat Neurology: alert, oriented, follow commands Musculoskeletal: Osteoarthritis Assessment Assessment IMP ALBERTO-CR PEAK OF 4.3 TO NOW 3.1 BX PROVEN IGA WITH CRESCENTS PROTEINURIA HEMATURIA DUE TO ABOVE R RENAL LESION 1.6 HTN HX DM II COVID 19 PLAN HYDRATION CONT SAME INCREASE NORVASC CR SLOWLY IMPROVING NO STEROIDS OR CYTOXAN GIVEN COVID 19 WILL FOLLOW RONNI QUILES MD Nov 27, 2020 12:55
[2020-11-27] MEDS: IV NORMAL SALINE 1000ML BAG 1,000 ML IV SCH (14:19)
--- NOTE | 2020-11-27 14:21 | NUR ---
Amlodipine BID schedule noted, non administered 1330 dose; next dose at 2100
[2020-11-27 14:32] LABS: C ANCA <1:20 titer (Neg:<1:20); P ANCA <1:20 titer (Neg:<1:20)
--- NOTE | 2020-11-27 15:06 | NUR ---
SW following for discharge planning. Spoke with RN and reviewed chart. Pt's creatinine improving. Pt had a fever and ID started pt on IV Cefipime. Pt not ready for discharge. Pt self-pay. SW following.
[2020-11-27 15:19] VITALS: BP 149/72
[2020-11-27] MEDS: CEFEPIME HCL IV Push 1 GM VIAL. IVP SCH (16:46)
[2020-11-27 19:00] VITALS: BP 151/70
[2020-11-27] MEDS: CALCIUM CARBONATE 500 MG TAB.CHEW PO PRN (20:49)
[2020-11-27] MEDS: PSYLLIUM HUSK (SUGAR FREE) 1 PKT PACKET PO SCH (20:49)
[2020-11-27 23:00] VITALS: BP 172/82
[2020-11-28 03:00] VITALS: BP 147/76
[2020-11-28] MEDS: IV NORMAL SALINE 1000ML BAG 1,000 ML IV SCH ×2 (06:20→17:30)
[2020-11-28] MEDS: LEVOTHYROXINE 137 MCG TABLET PO SCH (06:20)
[2020-11-28] MEDS: HEPARIN for SUB-Q USE 5,000 UNIT/ML VIAL. SQ SCH ×3 (06:21→21:21)
--- NOTE | 2020-11-28 06:50 | PDOC ---
PROGRESS NOTES Date of Service: DATE: 11/28/20 TIME: 06:50 Chief Complaint Chief Complaint IMPRESSION Chest pain - likely GERD, but with pericardial effusion on CT, will consult cardiology, check echo ALBERTO - likely vasomotor nephropathy. Nephrology consulted. Bladder scan prn, strict I?O . No casts reported in UA, Check Pr/Cr Abnormal UA - with LE, WBCs, left sided stranding, likely pyelonephritis, will give rocephin. IVF. Pain control Hematuria - No renal or ureteral calculi. Likely from UTI, will monitor Right renal lesion at the upper pole of the right kidney measuring 1.6 cm - informed follow up necessary Uncontrolled DM - sliding scale, will hold oral hypoglycemic agents for ALBERTO Anemia -likely of chronic disease HTN - prn antihypertensives Pericardial effusion- moderate reported on CT . Consult cardiology Leukocytosis - with tachycardia, will treat sepsis from UTI HYPERTENSION, SUBOPTIMAL CONTROL FEN - ADA diet PPX - heparin FULL CODE Dispo - inpatient INCREASE NORVASC CR SLOWLY IMPROVING NO STEROIDS OR CYTOXAN GIVEN COVID 19 IF IMPROVED 11-29 OK TO D/C FROM RENAL STANDPOINT UPDATED PT AND DAUGHTER D/W RN History of Present Illness History of Present Illness hpi Ms Ledesma is a 64 yo norwegian speaking female w/ PMHx HTN, HLD, DM2 who presents to ED C/O chest pressure 3/10 substernal, no radiation while she was laying down on 11/18/20 in the evening. She awoke on 11/19 and it persisted with associated heaviness. She came to ED at the insistence of her family. Patient notes that th e pain resolved today but she felt uneasy sensation and heaviness in her chest Denies any nausea, vomiting, fever, chills, shortness of breath or dizziness. No fever or chills. Denies cough, hemoptysis. Does not use NSAIDs, and has been following with [facility] and recently has a new PCP, she is also on Metformin and Losartan. No history of renal disease to her knowledge but does note a "spot" on her right kidney she has been told about. Patient also states her urine has been darker then normal for the last 2 weeks, no specific dysuria. Noted in ED with lab abnormalities with WBC 18.3, Hb 10.4, platelets 283, NA 130, K4.1, BUN 41, CR 3.3, glucose 118, lipase 0, troponin 0, procalcitonin 0. UA with large blood and positive leukocyte esterase. EKG normal sinus rhythm with a leftward axis. Chest radiograph with increased lung markings. CT abdomen/pelvis mild stranding adjacent to the left renal pelvis, no renal or ureteral calculi. No evidence for obstructive uropathy. Vague mildly hyperattenuating lesion at the upper pole of the right kidney measuring 1.6 cm. Further evaluation with nonemergent/outpatient renal protocol CT or MRI is recommended. Moderate-sized Pericardial effusion noted on CT, confirmed on echocardiogram. Consults; nephrology and cardiology 11/21: Chest pressure resolved. Good UOP. Cr at 4. D/w family and nephrology the renal biopsy may be indicated this week. JOB, ANCA, Anti-GBM pending 11/22: Afebrile. CR 4.3 and BUN up to 44, phosphorus 5.1. Still with microscopic hematuria. Discussed with nephrology and patient and family via director of software engineering it is important to undergo renal biopsy today to have plan for further treatment and also prepare for dialysis. 11/23: Patient COVID-19 positive, breathing on room air. Afebrile. No acute events overnight. BUN/creatinine slightly improved, 39/3.9. Renal biopsy yesterday, pathology pending. Temporary dialysis catheter placed. Initiate HD per nephrology. 11/24: Patient seen and evaluated. He is afebrile, denies shortness of breath, breathing on room air. Awaiting renal biopsy results. 11/25: COVID-19 positive, breathing room air. Creatinine 3.5, continues to improve. Await renal biopsy results. 11/26: No acute events overnight. Renal biopsy is pending. COVID +, afebrile, breathing room air. Creatinine continues to slowly improve, 3.2 today. Potassium 3.7. 11/27 BP elevated norvasc increased , fever last pm, , now on iv cefepime, ID CONSULT D/W RN Vitals Vitals Vital Signs Date Time Temp Pulse Resp B/P (MAP) Pulse Ox O2 Delivery O2 Flow Rate FiO2 11/28/20 03:00 96.6 84 24 147/76 (99) 97 Room Air 96.6 Physical Exam General: Alert, Oriented X3, Cooperative, No acute distress Heart: Regular rate, Normal S2, Other (distant heart tones ) Lungs: Clear Abdomen: Normal bowel sounds, Soft Extremities: No clubbing, No cyanosis, Other (1+ bilateral LE edema ) Skin: No rashes, No significant lesion Labs LABS Laboratory Tests Test 11/27/20 07:14 11/27/20 11:12 11/27/20 16:27 11/27/20 20:10 Glucose (Fingerstick) 118 mg/dL (70-99) 137 mg/dL (70-99) 119 mg/dL (70-99) 167 mg/dL (70-99) Assessment and Plan Assessmemt and Plan Problems Medical Problems: (1) Acute kidney failure Status: Acute Comment Review of Relevant I have reviewed the following items alexandro (where applicable) has been applied. Labs Laboratory Tests Test 11/26/20 08:02 11/26/20 11:59 11/26/20 16:27 11/26/20 19:35 Glucose (Fingerstick) 120 mg/dL (70-99) 153 mg/dL (70-99) 126 mg/dL (70-99) 205 mg/dL (70-99) Test 11/27/20 05:19 11/27/20 07:14 11/27/20 11:12 11/27/20 16:27 White Blood Count 15.3 x10^3/uL (4.0-11.0) Red Blood Count 3.19 x10^6/uL (3.50-5.40) Hemoglobin 8.5 g/dL (12.0-15.5) Hematocrit 26.6 % (36.0-47.0) Mean Corpuscular Volume 83 fL (79-100) Mean Corpuscular Hemoglobin 27 pg (25-35) Mean Corpuscular Hemoglobin Concent 32 g/dL (31-37) Red Cell Distribution Width 13.9 % (11.5-14.5) Platelet Count 292 x10^3/uL (140-400) Neutrophils (%) (Auto) 72 % (31-73) Lymphocytes (%) (Auto) 18 % (24-48) Monocytes (%) (Auto) 5 % (0-9) Eosinophils (%) (Auto) 4 % (0-3) Basophils (%) (Auto) 1 % (0-3) Neutrophils # (Auto) 11.0 x10^3/uL (1.8-7.7) Lymphocytes # (Auto) 2.8 x10^3/uL (1.0-4.8) Monocytes # (Auto) 0.8 x10^3/uL (0.0-1.1) Eosinophils # (Auto) 0.7 x10^3/uL (0.0-0.7) Basophils # (Auto) 0.1 x10^3/uL (0.0-0.2) Sodium Level 141 mmol/L (136-145) Potassium Level 3.8 mmol/L (3.5-5.1) Chloride Level 108 mmol/L (98-107) Carbon Dioxide Level 21 mmol/L (21-32) Anion Gap 12 (6-14) Blood Urea Nitrogen 34 mg/dL (7-20) Creatinine 3.1 mg/dL (0.6-1.0) Estimated GFR (Cockcroft-Gault) 15.2 Glucose Level 108 mg/dL (70-99) Calcium Level 8.0 mg/dL (8.5-10.1) C-Reactive Protein, Quantitative 32.7 mg/L (0-3.3) Procalcitonin < 0.10 ng/mL (0.00-0.10) Glucose (Fingerstick) 118 mg/dL (70-99) 137 mg/dL (70-99) 119 mg/dL (70-99) Test 11/27/20 20:10 Glucose (Fingerstick) 167 mg/dL (70-99) Laboratory Tests Test 11/27/20 07:14 11/27/20 11:12 11/27/20 16:27 11/27/20 20:10 Glucose (Fingerstick) 118 mg/dL (70-99) 137 mg/dL (70-99) 119 mg/dL (70-99) 167 mg/dL (70-99) Microbiology 11/19/20 Blood Culture - Final, Complete NO GROWTH AFTER 5 DAYS Medications Current Medications Ceftriaxone Sodium (Rocephin) 1 gm 1X ONCE IVP Last administered on 11/19/20at 14:44; Start 11/19/20 at 14:45; Stop 11/19/20 at 14:46; Status DC Morphine Sulfate (Morphine Sulfate) 4 mg 1X ONCE IV ; Start 11/19/20 at 14:45; Stop 11/19/20 at 14:46; Status DC Sodium Chloride 1,000 ml @ 1,000 mls/hr 1X ONCE IV Last administered on 11/19/20at 14:44; Start 11/19/20 at 14:45; Stop 11/19/20 at 15:44; Status DC Sodium Chloride 1,000 ml @ 1,000 mls/hr 1X ONCE IV Last administered on 11/19/20at 14:44; Start 11/19/20 at 14:45; Stop 11/19/20 at 15:44; Status DC Ondansetron HCl (Zofran) 4 mg PRN Q8HRS PRN IV NAUSEA/VOMITING; Start 11/19/20 at 17:15; Stop 11/20/20 at 17:14; Status DC Morphine Sulfate (Morphine Sulfate) 2 mg PRN Q2HR PRN IV PAIN; Start 11/19/20 at 17:15; Stop 11/20/20 at 17:14; Status DC Insulin Human Lispro (HumaLOG) 0-7 UNITS TIDWMEALS SQ Last administered on 11/25/20at 17:02; Start 11/20/20 at 17:00 Dextrose (Dextrose 50%-Water Syringe) 12.5 gm PRN Q15MIN PRN IV SEE COMMENTS; Start 11/20/20 at 14:00 Ceftriaxone Sodium (Rocephin) 1 gm Q24H IVP Last administered on 11/25/20at 15:32; Start 11/20/20 at 16:00; Stop 11/26/20 at 14:19; Status DC Levothyroxine Sodium (Synthroid) 137 mcg DAILY06 PO Last administered on 11/28/20at 06:20; Start 11/21/20 at 06:00 Linagliptin (Tradjenta) 5 mg DAILY PO Last administered on 11/27/20at 07:56; Start 11/21/20 at 09:00 Sodium Chloride 1,000 ml @ 75 mls/hr [id number] IV Last administered on 11/28/20at 06:20; Start 11/21/20 at 11:30 Lactobacillus Rhamnosus (Culturelle) 1 cap BID PO Last administered on 11/27/20at 20:49; Start 11/21/20 at 21:00 Lidocaine HCl (Buffered Lidocaine 1%) 3 ml STK-MED ONCE .ROUTE ; Start 11/22/20 at 14:08; Stop 11/22/20 at 14:08; Status DC Gelatin (Gelfoam Size 12-7mm) 1 each STK-MED ONCE .ROUTE ; Start 11/22/20 at 14:09; Stop 11/22/20 at 14:09; Status DC Amlodipine Besylate (Norvasc) 5 mg DAILY PO Last administered on 11/27/20at 07:56; Start 11/23/20 at 09:00; Stop 11/27/20 at 13:20; Status DC Amlodipine Besylate (Norvasc) 5 mg 1X ONCE PO Last administered on 11/22/20at 16:23; Start 11/22/20 at 14:15; Stop 11/22/20 at 14:16; Status DC Midazolam HCl (Versed) 2 mg STK-MED ONCE .ROUTE ; Start 11/22/20 at 14:15; Stop 11/22/20 at 14:15; Status DC Fentanyl Citrate (Fentanyl 2ml Vial) 100 mcg STK-MED ONCE .ROUTE ; Start 11/22/20 at 14:15; Stop 11/22/20 at 14:15; Status DC Flumazenil (Romazicon) 0.5 mg STK-MED ONCE IV ; Start 11/22/20 at 14:15; Stop 11/22/20 at 14:15; Status DC Naloxone HCl (Narcan) 0.4 mg STK-MED ONCE .ROUTE ; Start 11/22/20 at 14:15; Stop 11/22/20 at 14:16; Status DC Lidocaine HCl (Buffered Lidocaine 1%) 18 ml 1X ONCE INJ Last administered on 11/22/20at 15:17; Start 11/22/20 at 14:30; Stop 11/22/20 at 14:32; Status DC Hydralazine HCl (Apresoline Inj) 10 mg 1X ONCE IVP Last administered on 11/22/20at 15:04; Start 11/22/20 at 15:00; Stop 11/22/20 at 15:01; Status DC Midazolam HCl (Versed) 2 mg 1X ONCE IV Last administered on 11/22/20at 14:30; Start 11/22/20 at 15:30; Stop 11/22/20 at 15:32; Status DC Fentanyl Citrate (Fentanyl 2ml Vial) 100 mcg 1X ONCE IV Last administered on 11/22/20at 14:30; Start 11/22/20 at 15:30; Stop 11/22/20 at 15:32; Status DC Gelatin (Gelfoam Size 12-7mm) 1 each 1X ONCE TP Last administered on 11/22/20at 14:50; Start 11/22/20 at 15:30; Stop 11/22/20 at 15:32; Status DC Acetaminophen (Tylenol) 650 mg PRN Q6HRS PRN PO MILD PAIN / TEMP > 100.3'F Last administered on 11/25/20at 09:08; Start 11/22/20 at 21:30 Psyllium Hydrophilic Mucilloid (Metamucil Fiber Packet) 1 pkt QHS PO Last ad ministered on 11/27/20at 20:49; Start 11/23/20 at 21:00 Polyethylene Glycol (miraLAX PACKET) 17 gm 1X ONCE PO Last administered on 11/23/20at 21:40; Start 11/23/20 at 18:30; Stop 11/23/20 at 18:31; Status DC Polyethylene Glycol (miraLAX PACKET) 17 gm PRN DAILY PRN PO CONSTIPATION; Start 11/23/20 at 18:30 Bisacodyl (Dulcolax Supp) 10 mg PRN DAILY PRN NM CONSTIPATION; Start 11/23/20 at 18:30 Calcium Carbonate/ Glycine (Tums) 500 mg PRN AFTMEALHC PRN PO INDIGESTION Last administered on 11/27/20at 20:49; Start 11/23/20 at 23:30 Potassium Chloride (Klor-Con) 40 meq 1X ONCE PO Last administered on 11/25/20at 15:31; Start 11/25/20 at 15:00; Stop 11/25/20 at 15:06; Status DC Sodium Chloride (Saline Mist Nasal) 1 parris PRN Q1HR PRN NS NASAL CONGESTION Last administered on 11/25/20at 21:25; Start 11/25/20 at 20:30 Heparin Sodium (Porcine) (Heparin Sodium) 5,000 unit Q8HRS SQ Last administered on 11/28/20at 06:21; Start 11/26/20 at 11:00 Cefepime HCl (Maxipime) 1 gm Q24H IVP Last administered on 11/27/20at 16:46; St art 11/26/20 at 16:00 Metoprolol Tartrate (Lopressor Vial) 5 mg PRN Q6HRS PRN IVP HYPERTENSION Last administered on 11/27/20at 00:01; Start 11/26/20 at 23:30 Amlodipine Besylate (Norvasc) 5 mg BID PO Last administered on 11/27/20at 20:50; Start 11/27/20 at 13:30 Active Scripts Active Reported Hydrochlorothiazide Tablet (Hydrochlorothiazide) 25 Mg Tablet 25 Mg PO DAILY Januvia (Sitagliptin Phosphate) 25 Mg Tablet 25 Mg PO DAILY Levothyroxine Sodium 137 Mcg Tablet 1 Tab PO DAILY Losartan Potassium 100 Mg Tablet 100 Mg PO DAILY Metformin Hcl 1,000 Mg Tablet 1,000 Mg PO BIDWMEALS Vitals/I & O Vital Sign - Last 24 Hours 11/27/20 11/27/20 11/27/20 11/27/20 07:29 07:56 08:00 11:37 Temp 97.0 97.2 97.0 97.2 Pulse 70 70 78 Resp 18 18 B/P (MAP) 155/74 (101) 155/74 160/90 (113) Pulse Ox 98 100 O2 Delivery Room Air Room Air Room Air 11/27/20 11/27/20 11/27/20 11/27/20 15:19 19:00 20:50 20:50 Temp 97.6 98.3 97.6 98.3 Pulse 78 78 78 Resp 18 20 B/P (MAP) 149/72 (97) 151/70 (97) 151/70 Pulse Ox 100 97 O2 Delivery Room Air Room Air Room Air 11/27/20 11/28/20 23:00 03:00 Temp 97.1 96.6 97.1 96.6 Pulse 85 84 Resp 20 24 B/P (MAP) 172/82 (112) 147/76 (99) Pulse Ox 95 97 O2 Delivery Room Air Room Air Intake and Output 11/27/20 11/27/20 11/28/20 15:00 23:00 07:00 Intake Total 900 ml 1400 ml 700 ml Output Total 700 ml 1900 ml Balance 200 ml -500 ml 700 ml Justicifation of Admission Dx: Justifications for Admission: Justification of Admission Dx: Yes Acute Renal Failure: 3-Fold Rise in Serum Crea OTTONIEL THOMAS MD Nov 28, 2020 06:50
[2020-11-28 07:00] VITALS: BP 155/82
[2020-11-28] MEDS: INSULIN LISPRO 300 UNITS/3 ML VIAL. SQ SCH ×3 (08:00→16:59)
[2020-11-28] MEDS: LACTOBACILLUS RHAMNOSUS GG 1 CAPSULE. PO SCH ×2 (08:03→21:19)
[2020-11-28] MEDS: LINAGLIPTIN 5 MG TABLET PO SCH (08:03)
[2020-11-28 08:31] LABS: BASO # 0.1 x10^3/uL (0.0-0.2); BASO % 1 % (0-3); EOS # 0.5 x10^3/uL (0.0-0.7); EOS % 4 % (0-3); HEMATOCRIT 26.2 % (36.0-47.0); HEMOGLOBIN 8.5 g/dL (12.0-15.5); LYMPH # 1.8 x10^3/uL (1.0-4.8); LYMPH % 13 % (24-48); MEAN CORPUSCULAR HEMOGLOBIN 27 pg (25-35); MEAN CORPUSCULAR HGB CONC 33 g/dL (31-37); MEAN CORPUSCULAR VOLUME 83 fL (79-100); MONO # 0.6 x10^3/uL (0.0-1.1); MONO % 4 % (0-9); NEUT % 79 % (31-73); PLATELET COUNT 284 x10^3/uL (140-400); RED BLOOD COUNT 3.16 x10^6/uL (3.50-5.40); RED CELL DISTRIBUTION WIDTH 13.9 % (11.5-14.5)
[2020-11-28 09:00] LABS: CALCIUM 8.3 mg/dL (8.5-10.1); CREATININE 2.9 mg/dL (0.6-1.0); GFR 16.4; POTASSIUM 3.3 mmol/L (3.5-5.1)
--- NOTE | 2020-11-28 10:27 | PDOC ---
Infectious Disease Note Vital Sign Vital Signs Vital Signs Date Time Temp Pulse Resp B/P (MAP) Pulse Ox O2 Delivery O2 Flow Rate FiO2 11/28/20 08:04 83 155/82 11/28/20 07:00 96.8 17 100 Room Air 96.8 Labs Lab Laboratory Tests Test 11/27/20 11:12 11/27/20 16:27 11/27/20 20:10 11/28/20 07:18 Glucose (Fingerstick) 137 mg/dL (70-99) 119 mg/dL (70-99) 167 mg/dL (70-99) 128 mg/dL (70-99) Test 11/28/20 08:01 White Blood Count 14.0 x10^3/uL (4.0-11.0) Red Blood Count 3.16 x10^6/uL (3.50-5.40) Hemoglobin 8.5 g/dL (12.0-15.5) Hematocrit 26.2 % (36.0-47.0) Mean Corpuscular Volume 83 fL (79-100) Mean Corpuscular Hemoglobin 27 pg (25-35) Mean Corpuscular Hemoglobin Concent 33 g/dL (31-37) Red Cell Distribution Width 13.9 % (11.5-14.5) Platelet Count 284 x10^3/uL (140-400) Neutrophils (%) (Auto) 79 % (31-73) Lymphocytes (%) (Auto) 13 % (24-48) Monocytes (%) (Auto) 4 % (0-9) Eosinophils (%) (Auto) 4 % (0-3) Basophils (%) (Auto) 1 % (0-3) Neutrophils # (Auto) 11.0 x10^3/uL (1.8-7.7) Lymphocytes # (Auto) 1.8 x10^3/uL (1.0-4.8) Monocytes # (Auto) 0.6 x10^3/uL (0.0-1.1) Eosinophils # (Auto) 0.5 x10^3/uL (0.0-0.7) Basophils # (Auto) 0.1 x10^3/uL (0.0-0.2) Sodium Level 141 mmol/L (136-145) Potassium Level 3.3 mmol/L (3.5-5.1) Chloride Level 107 mmol/L (98-107) Carbon Dioxide Level 21 mmol/L (21-32) Anion Gap 13 (6-14) Blood Urea Nitrogen 35 mg/dL (7-20) Creatinine 2.9 mg/dL (0.6-1.0) Estimated GFR (Cockcroft-Gault) 16.4 Glucose Level 134 mg/dL (70-99) Calcium Level 8.3 mg/dL (8.5-10.1) Micro Microbiology 11/19/20 Blood Culture - Final, Complete NO GROWTH AFTER 5 DAYS Objective Assessment pt seen, consult dictated Plan Plan of Care / MARELY SHAH MD Nov 28, 2020 10:27
[2020-11-28 11:00] VITALS: BP 165/83
--- NOTE | 2020-11-28 12:53 | CONS ---
DATE OF CONSULTATION: 11/28/2020 REQUESTING PHYSICIAN: Jai Duggan MD. REASON FOR CONSULTATION: COVID and had a fever a few days ago. HISTORY OF PRESENT ILLNESS: This is a 64-year-old female [place], has diabetes, obesity, hypertension, who came in with chest pain. The patient's workup found that she had acute kidney injury. She did not have any fever at home or initially here, but couple of days ago, she had 100.6 fever. The patient's COVID is positive, acute kidney injury and she underwent renal biopsy, leukocytosis. The patient has no more fever. The patient denies any cough. Denies any shortness of breath. Denies any abdominal pain, urinary symptoms or bowel symptoms. The patient is on cefepime. The patient is on room air. PAST MEDICAL HISTORY: Positive for diabetes mellitus, hypertension, hyperlipidemia, obesity, arthritis. SOCIAL HISTORY: Negative for smoking, alcohol or illicit drug use. ALLERGIES: No known drug allergies. CURRENT MEDICATIONS: Reviewed. REVIEW OF SYSTEMS: As per HPI, all other systems reviewed are negative. PHYSICAL EXAMINATION: GENERAL: Alert, oriented female, not in any distress. VITAL SIGNS: Stable. Temperature 96.8, pulse 83, respirations 17, blood pressure 155/82. HEENT: NAD. NECK: Supple, no JVP, no lymphadenopathy. LUNGS: Clear. HEART: S1, S2 regular. ABDOMEN: Benign. EXTREMITIES: No edema or cyanosis. SKIN: Unremarkable. NEUROLOGIC: The patient is neurologically alert, awake and appropriate. No focal neurologic deficit. LABORATORY DATA: White count is 14,000. BUN and creatinine is 35 and 2.9. Urinalysis showed more than 40 rbc's, 1-4 wbc's. The patient had free kappa light chain elevated and free lambda light chain elevated. COVID-19 is positive. Blood cultures are negative. CT and x-ray reviewed. IMPRESSION: 1. COVID-19 positive. 2. IgA nephropathy. 3. Fever. 4. Diabetes. 5. Hypertension. 6. Obesity. RECOMMENDATIONS: We do not see the need for antibiotics. There is nothing she needs for COVID-19. Supportive care and workup and further management as per Nephrology. Thank you very much, Dr. Duggan, for giving me the opportunity to participate in this patient's care. MARELY SHAH MD DR: GLORIA/felix JOB#: [id number] / [id number]
--- NOTE | 2020-11-28 12:58 | PDOC ---
Renal-Progress Notes Subjective Notes Notes NO NEW COMPLAINTS History of Present Illness Hx of present illness STABLE Vitals Vitals Vital Signs Date Time Temp Pulse Resp B/P (MAP) Pulse Ox O2 Delivery O2 Flow Rate FiO2 11/28/20 11:00 97.5 79 17 165/83 (110) 100 Room Air 97.5 Weight Weight [ ] I.O. Intake and Output Intake and Output 11/28/20 07:00 Intake Total 3000 ml Output Total 2600 ml Balance 400 ml Intake Oral 3000 ml Output Urine Total 2600 ml Labs Labs Laboratory Tests Test 11/27/20 16:27 11/27/20 20:10 11/28/20 07:18 11/28/20 08:01 Glucose (Fingerstick) 119 mg/dL (70-99) 167 mg/dL (70-99) 128 mg/dL (70-99) White Blood Count 14.0 x10^3/uL (4.0-11.0) Red Blood Count 3.16 x10^6/uL (3.50-5.40) Hemoglobin 8.5 g/dL (12.0-15.5) Hematocrit 26.2 % (36.0-47.0) Mean Corpuscular Volume 83 fL (79-100) Mean Corpuscular Hemoglobin 27 pg (25-35) Mean Corpuscular Hemoglobin Concent 33 g/dL (31-37) Red Cell Distribution Width 13.9 % (11.5-14.5) Platelet Count 284 x10^3/uL (140-400) Neutrophils (%) (Auto) 79 % (31-73) Lymphocytes (%) (Auto) 13 % (24-48) Monocytes (%) (Auto) 4 % (0-9) Eosinophils (%) (Auto) 4 % (0-3) Basophils (%) (Auto) 1 % (0-3) Neutrophils # (Auto) 11.0 x10^3/uL (1.8-7.7) Lymphocytes # (Auto) 1.8 x10^3/uL (1.0-4.8) Monocytes # (Auto) 0.6 x10^3/uL (0.0-1.1) Eosinophils # (Auto) 0.5 x10^3/uL (0.0-0.7) Basophils # (Auto) 0.1 x10^3/uL (0.0-0.2) Sodium Level 141 mmol/L (136-145) Potassium Level 3.3 mmol/L (3.5-5.1) Chloride Level 107 mmol/L (98-107) Carbon Dioxide Level 21 mmol/L (21-32) Anion Gap 13 (6-14) Blood Urea Nitrogen 35 mg/dL (7-20) Creatinine 2.9 mg/dL (0.6-1.0) Estimated GFR (Cockcroft-Gault) 16.4 Glucose Level 134 mg/dL (70-99) Calcium Level 8.3 mg/dL (8.5-10.1) Test 11/28/20 10:27 Glucose (Fingerstick) 141 mg/dL (70-99) Micro Micro Microbiology 11/19/20 Blood Culture - Final, Complete NO GROWTH AFTER 5 DAYS Review of Systems Constitutional: yes: alert, oriented Ears/Nose/Throat: Yes: no symptom reported Eyes: Yes: no symptom reported Pulmonary: Yes no symptom reported Cardiovascular: Yes no symptom reported Gastrointestional: Yes: no symptom reported Musculoskeletal: Yes: no symptom reported Skin: Yes no symptom reported Psychiatric/Neurological: Yes: no symptom reported Physical Exam General Appearance: no apparent distress, febrile Respiratory: decreased breath sounds Heart: S1S2 Abdomen: soft, bowel sounds present Genitourinary: bladder flat Neurology: alert, oriented, follow commands Musculoskeletal: Osteoarthritis Assessment Assessment IMP ALBERTO-CR PEAK OF 4.3 TO NOW 2.9 BX PROVEN IGA WITH CRESCENTS PROTEINURIA HEMATURIA DUE TO ABOVE R RENAL LESION 1.6 HTN HX DM II COVID 19 PLAN HYDRATION CONT SAME CR SLOWLY IMPROVING OP FOLLOW UP FOR R RENAL LESION NO STEROIDS OR CYTOXAN GIVEN COVID 19 IF IMPROVED AGAIN OR STABLE TOMORROW OK TO D/C FROM RENAL STANDPOINT UPDATED PT AND DAUGHTER WILL FOLLOW RONNI QUILES MD Nov 28, 2020 12:58
[2020-11-28] MEDS: METOPROLOL IV PUSH 5 MG/5 ML VIAL. IVP PRN (14:19)
[2020-11-28 15:00] VITALS: BP 159/78
--- NOTE | 2020-11-28 15:37 | NUR ---
SW following for discharge planning. Spoke with RN and reviewed chart. Pt remains on IV Cefipime. Pt not ready for discharge. Pt self-pay. SW following.
[2020-11-28 19:45] VITALS: BP 149/70
[2020-11-28] MEDS: PSYLLIUM HUSK (SUGAR FREE) 1 PKT PACKET PO SCH (21:19)
[2020-11-28] MEDS: CALCIUM CARBONATE 500 MG TAB.CHEW PO PRN (21:37)
[2020-11-28 23:18] VITALS: BP 161/77
[2020-11-29 03:22] VITALS: BP 153/75
[2020-11-29] MEDS: LEVOTHYROXINE 137 MCG TABLET PO SCH (06:06)
[2020-11-29] MEDS: HEPARIN for SUB-Q USE 5,000 UNIT/ML VIAL. SQ SCH (06:07)
[2020-11-29] MEDS: IV NORMAL SALINE 1000ML BAG 1,000 ML IV SCH (06:11)
[2020-11-29 07:00] VITALS: BP 158/84
[2020-11-29] MEDS: INSULIN LISPRO 300 UNITS/3 ML VIAL. SQ SCH ×2 (08:00→11:57)
--- NOTE | 2020-11-29 08:39 | PDOC ---
PROGRESS NOTES Date of Service: DATE: 11/29/20 TIME: 08:39 Chief Complaint Chief Complaint ===HOSPITAL D/C SUMMARY [facility] DATE OF ADMIT 11-19-20 DATE OF DISCHARGE 11-29-20 CONSULTATIONS, ID, NEPHROLOGY, CARDIOLOGY COMPLICATIONS NONE D/C CONDITION GOOD F/U WITH NEPHROLOGY , ID 1-2 WEEKS PROCEDURES ECHO D/W DR SHAH 11-29, AGREES WITH D/C PLAN Chest pain - likely GERD, but with pericardial effusion on CT, consult cardiology, check echo ALBERTO - likely vasomotor nephropathy. Nephrology consulted. Bladder scan prn, strict I?O . No casts reported in UA, Check Pr/Cr Abnormal UA - with LE, WBCs, left sided stranding, likely pyelonephritis, will give rocephin. IVF. Pain control Hematuria - No renal or ureteral calculi. Likely from UTI, will monitor Right renal lesion at the upper pole of the right kidney measuring 1.6 cm - informed follow up necessary Uncontrolled DM - sliding scale, will hold oral hypoglycemic agents for ALBERTO Anemia -likely of chronic disease HTN - prn antihypertensives Pericardial effusion- moderate reported on CT . Consult cardiology Leukocytosis - with tachycardia, will treat sepsis from UTI HYPERTENSION, SUBOPTIMAL CONTROL PLAN FEN - ADA diet PPX - heparin FULL CODE Dispo - inpatient INCREASE NORVASC CR SLOWLY IMPROVING NO STEROIDS OR CYTOXAN GIVEN COVID 19 IF IMPROVED 11-29 OK TO D/C FROM RENAL STANDPOINT UPDATED PT AND DAUGHTER D/W RN D/C PLANNING 35 MIN History of Present Illness History of Present Illness hpi Ms Ledesma is a 64 yo tajik speaking female w/ PMHx HTN, HLD, DM2 who presents to ED C/O chest pressure 3/10 substernal, no radiation while she was laying down on 11/18/20 in the evening. She awoke on 11/19 and it persisted with associated heaviness. She came to ED at the insistence of her family. Patient notes that th e pain resolved today but she felt uneasy sensation and heaviness in her chest Denies any nausea, vomiting, fever, chills, shortness of breath or dizziness. No fever or chills. Denies cough, hemoptysis. Does not use NSAIDs, and has been following with [facility] and recently has a new PCP, she is also on Metformin and Losartan. No history of renal disease to her knowledge but does note a "spot" on her right kidney she has been told about. Patient also states her urine has been darker then normal for the last 2 weeks, no specific dysuria. Noted in ED with lab abnormalities with WBC 18.3, Hb 10.4, platelets 283, NA 130, K4.1, BUN 41, CR 3.3, glucose 118, lipase 0, troponin 0, procalcitonin 0. UA with large blood and positive leukocyte esterase. EKG normal sinus rhythm with a leftward axis. Chest radiograph with increased lung markings. CT abdomen/pelvis mild stranding adjacent to the left renal pelvis, no renal or ureteral calculi. No evidence for obstructive uropathy. Vague mildly hyperattenuating lesion at the upper pole of the right kidney measuring 1.6 cm. Further evaluation with nonemergent/outpatient renal protocol CT or MRI is recommended. Moderate-sized Pericardial effusion noted on CT, confirmed on echocardiogram. Consults; nephrology and cardiology 11/21: Chest pressure resolved. Good UOP. Cr at 4. D/w family and nephrology the renal biopsy may be indicated this week. JOB, ANCA, Anti-GBM pending 11/22: Afebrile. CR 4.3 and BUN up to 44, phosphorus 5.1. Still with microscopic hematuria. Discussed with nephrology and patient and family via projection printer it is important to undergo renal biopsy today to have plan for further treatment and also prepare for dialysis. 11/23: Patient COVID-19 positive, breathing on room air. Afebrile. No acute events overnight. BUN/creatinine slightly improved, 39/3.9. Renal biopsy yesterday, pathology pending. Temporary dialysis catheter placed. Initiate HD per nephrology. 11/24: Patient seen and evaluated. He is afebrile, denies shortness of breath, breathing on room air. Awaiting renal biopsy results. 11/25: COVID-19 positive, breathing room air. Creatinine 3.5, continues to improve. Await renal biopsy results. 11/26: No acute events overnight. Renal biopsy is pending. COVID +, afebrile, breathing room air. Creatinine continues to slowly improve, 3.2 today. Potassium 3.7. 11/27 BP elevated norvasc increased , fever last pm, , now on iv cefepime, ID CONSULT D/W RN Vitals Vitals Vital Signs Date Time Temp Pulse Resp B/P (MAP) Pulse Ox O2 Delivery O2 Flow Rate FiO2 11/29/20 03:22 98.2 79 20 153/75 (101) 98 Room Air 98.2 Physical Exam General: Alert, Oriented X3, Cooperative, No acute distress Heart: Regular rate, Normal S1, Normal S2, Other (distant heart tones ) Lungs: Clear Abdomen: Normal bowel sounds, Soft Extremities: No clubbing, No cyanosis, Other (1+ bilateral LE edema ) Skin: No rashes, No significant lesion Labs LABS Laboratory Tests Test 11/28/20 10:27 11/28/20 16:39 11/28/20 20:47 11/29/20 08:08 Glucose (Fingerstick) 141 mg/dL (70-99) 107 mg/dL (70-99) 137 mg/dL (70-99) 92 mg/dL (70-99) Assessment and Plan Assessmemt and Plan Problems Medical Problems: (1) Acute kidney failure Status: Acute Comment Review of Relevant I have reviewed the following items alexandro (where applicable) has been applied. Labs Laboratory Tests Test 11/27/20 11:12 11/27/20 16:27 11/27/20 20:10 11/28/20 07:18 Glucose (Fingerstick) 137 mg/dL (70-99) 119 mg/dL (70-99) 167 mg/dL (70-99) 128 mg/dL (70-99) Test 11/28/20 08:01 11/28/20 10:27 11/28/20 16:39 11/28/20 20:47 White Blood Count 14.0 x10^3/uL (4.0-11.0) Red Blood Count 3.16 x10^6/uL (3.50-5.40) Hemoglobin 8.5 g/dL (12.0-15.5) Hematocrit 26.2 % (36.0-47.0) Mean Corpuscular Volume 83 fL (79-100) Mean Corpuscular Hemoglobin 27 pg (25-35) Mean Corpuscular Hemoglobin Concent 33 g/dL (31-37) Red Cell Distribution Width 13.9 % (11.5-14.5) Platelet Count 284 x10^3/uL (140-400) Neutrophils (%) (Auto) 79 % (31-73) Lymphocytes (%) (Auto) 13 % (24-48) Monocytes (%) (Auto) 4 % (0-9) Eosinophils (%) (Auto) 4 % (0-3) Basophils (%) (Auto) 1 % (0-3) Neutrophils # (Auto) 11.0 x10^3/uL (1.8-7.7) Lymphocytes # (Auto) 1.8 x10^3/uL (1.0-4.8) Monocytes # (Auto) 0.6 x10^3/uL (0.0-1.1) Eosinophils # (Auto) 0.5 x10^3/uL (0.0-0.7) Basophils # (Auto) 0.1 x10^3/uL (0.0-0.2) Sodium Level 141 mmol/L (136-145) Potassium Level 3.3 mmol/L (3.5-5.1) Chloride Level 107 mmol/L (98-107) Carbon Dioxide Level 21 mmol/L (21-32) Anion Gap 13 (6-14) Blood Urea Nitrogen 35 mg/dL (7-20) Creatinine 2.9 mg/dL (0.6-1.0) Estimated GFR (Cockcroft-Gault) 16.4 Glucose Level 134 mg/dL (70-99) Calcium Level 8.3 mg/dL (8.5-10.1) Glucose (Fingerstick) 141 mg/dL (70-99) 107 mg/dL (70-99) 137 mg/dL (70-99) Test 11/29/20 08:08 Glucose (Fingerstick) 92 mg/dL (70-99) Laboratory Tests Test 11/28/20 10:27 11/28/20 16:39 11/28/20 20:47 11/29/20 08:08 Glucose (Fingerstick) 141 mg/dL (70-99) 107 mg/dL (70-99) 137 mg/dL (70-99) 92 mg/dL (70-99) Microbiology 11/19/20 Blood Culture - Final, Complete NO GROWTH AFTER 5 DAYS Medications Current Medications Ceftriaxone Sodium (Rocephin) 1 gm 1X ONCE IVP Last administered on 11/19/20at 14:44; Start 11/19/20 at 14:45; Stop 11/19/20 at 14:46; Status DC Morphine Sulfate (Morphine Sulfate) 4 mg 1X ONCE IV ; Start 11/19/20 at 14:45; Stop 11/19/20 at 14:46; Status DC Sodium Chloride 1,000 ml @ 1,000 mls/hr 1X ONCE IV Last administered on 11/19/20at 14:44; Start 11/19/20 at 14:45; Stop 11/19/20 at 15:44; Status DC Sodium Chloride 1,000 ml @ 1,000 mls/hr 1X ONCE IV Last administered on 11/19/20at 14:44; Start 11/19/20 at 14:45; Stop 11/19/20 at 15:44; Status DC Ondansetron HCl (Zofran) 4 mg PRN Q8HRS PRN IV NAUSEA/VOMITING; Start 11/19/20 at 17:15; Stop 11/20/20 at 17:14; Status DC Morphine Sulfate (Morphine Sulfate) 2 mg PRN Q2HR PRN IV PAIN; Start 11/19/20 at 17:15; Stop 11/20/20 at 17:14; Status DC Insulin Human Lispro (HumaLOG) 0-7 UNITS TIDWMEALS SQ Last administered on 11/25/20at 17:02; Start 11/20/20 at 17:00 Dextrose (Dextrose 50%-Water Syringe) 12.5 gm PRN Q15MIN PRN IV SEE COMMENTS; Start 11/20/20 at 14:00 Ceftriaxone Sodium (Rocephin) 1 gm Q24H IVP Last administered on 11/25/20at 15 :32; Start 11/20/20 at 16:00; Stop 11/26/20 at 14:19; Status DC Levothyroxine Sodium (Synthroid) 137 mcg DAILY06 PO Last administered on 11/29/20at 06:06; Start 11/21/20 at 06:00 Linagliptin (Tradjenta) 5 mg DAILY PO Last administered on 11/28/20at 08:03; Start 11/21/20 at 09:00 Sodium Chloride 1,000 ml @ 75 mls/hr [id number] IV Last administered on 11/29/20at 06:11; Start 11/21/20 at 11:30 Lactobacillus Rhamnosus (Culturelle) 1 cap BID PO Last administered on 11/28/20at 21:19; Start 11/21/20 at 21:00 Lidocaine HCl (Buffered Lidocaine 1%) 3 ml STK-MED ONCE .ROUTE ; Start 11/22/20 at 14:08; Stop 11/22/20 at 14:08; Status DC Gelatin (Gelfoam Size 12-7mm) 1 each STK-MED ONCE .ROUTE ; Start 11/22/20 at 14:09; Stop 11/22/20 at 14:09; Status DC Amlodipine Besylate (Norvasc) 5 mg DAILY PO Last administered on 11/27/20at 07:56; Start 11/23/20 at 09:00; Stop 11/27/20 at 13:20; Status DC Amlodipine Besylate (Norvasc) 5 mg 1X ONCE PO Last administered on 11/22/20at 16:23; Start 11/22/20 at 14:15; Stop 11/22/20 at 14:16; Status DC Midazolam HCl (Versed) 2 mg STK-MED ONCE .ROUTE ; Start 11/22/20 at 14:15; Stop 11/22/20 at 14:15; Status DC Fentanyl Citrate (Fentanyl 2ml Vial) 100 mcg STK-MED ONCE .ROUTE ; Start 11/22/20 at 14:15; Stop 11/22/20 at 14:15; Status DC Flumazenil (Romazicon) 0.5 mg STK-MED ONCE IV ; Start 11/22/20 at 14:15; Stop 11/22/20 at 14:15; Status DC Naloxone HCl (Narcan) 0.4 mg STK-MED ONCE .ROUTE ; Start 11/22/20 at 14:15; Stop 11/22/20 at 14:16; Status DC Lidocaine HCl (Buffered Lidocaine 1%) 18 ml 1X ONCE INJ Last administered on 11/22/20at 15:17; Start 11/22/20 at 14:30; Stop 11/22/20 at 14:32; Status DC Hydralazine HCl (Apresoline Inj) 10 mg 1X ONCE IVP Last administered on 11/22/20at 15:04; Start 11/22/20 at 15:00; Stop 11/22/20 at 15:01; Status DC Midazolam HCl (Versed) 2 mg 1X ONCE IV Last administered on 11/22/20at 14:30; Start 11/22/20 at 15:30; Stop 11/22/20 at 15:32; Status DC Fentanyl Citrate (Fentanyl 2ml Vial) 100 mcg 1X ONCE IV Last administered on 11/22/20at 14:30; Start 11/22/20 at 15:30; Stop 11/22/20 at 15:32; Status DC Gelatin (Gelfoam Size 12-7mm) 1 each 1X ONCE TP Last administered on 1at 14:50; Start 11/22/20 at 15:30; Stop 11/22/20 at 15:32; Status DC Acetaminophen (Tylenol) 650 mg PRN Q6HRS PRN PO MILD PAIN / TEMP > 100.3'F Last administered on 11/25/20at 09:08; Start 11/22/20 at 21:30 Psyllium Hydrophilic Mucilloid (Metamucil Fiber Packet) 1 pkt QHS PO Last administered on 11/28/20at 21:19; Start 11/23/20 at 21:00 Polyethylene Glycol (miraLAX PACKET) 17 gm 1X ONCE PO Last administered on 11/23/20at 21:40; Start 11/23/20 at 18:30; Stop 11/23/20 at 18:31; Status DC Polyethylene Glycol (miraLAX PACKET) 17 gm PRN DAILY PRN PO CONSTIPATION; Start 11/23/20 at 18:30 Bisacodyl (Dulcolax Supp) 10 mg PRN DAILY PRN ND CONSTIPATION; Start 11/23/20 at 18:30 Calcium Carbonate/ Glycine (Tums) 500 mg PRN AFTMEALHC PRN PO INDIGESTION Last administered on 11/28/20at 21:37; Start 11/23/20 at 23:30 Potassium Chloride (Klor-Con) 40 meq 1X ONCE PO Last administered on 11/25/20at 15:31; Start 11/25/20 at 15:00; Stop 11/25/20 at 15:06; Status DC Sodium Chloride (Saline Mist Nasal) 1 parris PRN Q1HR PRN NS NASAL CONGESTION Last administered on 11/25/20at 21:25; Start 11/25/20 at 20:30 Heparin Sodium (Porcine) (Heparin Sodium) 5,000 unit Q8HRS SQ Last administered on 11/29/20at 06:07; Start 11/26/20 at 11:00 Cefepime HCl (Maxipime) 1 gm Q24H IVP Last administered on 11/27/20at 16:46; Start 11/26/20 at 16:00; Stop 11/28/20 at 10:29; Status DC Metoprolol Tartrate (Lopressor Vial) 5 mg PRN Q6HRS PRN IVP HYPERTENSION Last administered on 11/28/20at 14:19; Start 11/26/20 at 23:30 Amlodipine Besylate (Norvasc) 5 mg BID PO Last administered on 11/28/20at 21:19; Start 11/27/20 at 13:30 Active Scripts Active Reported Hydrochlorothiazide Tablet (Hydrochlorothiazide) 25 Mg Tablet 25 Mg PO DAILY Januvia (Sitagliptin Phosphate) 25 Mg Tablet 25 Mg PO DAILY Levothyroxine Sodium 137 Mcg Tablet 1 Tab PO DAILY Losartan Potassium 100 Mg Tablet 100 Mg PO DAILY Metformin Hcl 1,000 Mg Tablet 1,000 Mg PO BIDWMEALS Vitals/I & O Vital Sign - Last 24 Hours 11/28/20 11/28/20 11/28/20 11/28/20 11:00 14:19 15:00 19:45 Temp 97.5 98.0 98.3 97.5 98.0 98.3 Pulse 79 79 68 70 Resp 17 18 20 B/P (MAP) 165/83 (110) 165/83 159/78 (105) 149/70 (96) Pulse Ox 100 100 100 O2 Delivery Room Air Room Air Room Air 11/28/20 11/28/20 11/28/20 11/29/20 21:19 21:30 23:18 03:22 Temp 98.2 98.2 98.2 98.2 Pulse 70 76 79 Resp 20 20 B/P (MAP) 149/70 161/77 (105) 153/75 (101) Pulse Ox 99 98 O2 Delivery Room Air Room Air Room Air Intake and Output 11/28/20 11/28/20 11/29/20 15:00 23:00 07:00 Intake Total 940 ml 360 ml 400 ml Output Total 1200 ml 900 ml 1100 ml Balance -260 ml -540 ml -700 ml Justicifation of Admission Dx: Justifications for Admission: Justification of Admission Dx: Yes Acute Renal Failure: 3-Fold Rise in Serum Crea OTTONIEL THOMAS MD Nov 29, 2020 08:39
[2020-11-29 08:46] LABS: BASO # 0.1 x10^3/uL (0.0-0.2); BASO % 1 % (0-3); EOS # 0.4 x10^3/uL (0.0-0.7); EOS % 3 % (0-3); HEMATOCRIT 26.7 % (36.0-47.0); HEMOGLOBIN 8.7 g/dL (12.0-15.5); LYMPH # 1.8 x10^3/uL (1.0-4.8); LYMPH % 14 % (24-48); MEAN CORPUSCULAR HEMOGLOBIN 27 pg (25-35); MEAN CORPUSCULAR HGB CONC 33 g/dL (31-37); MEAN CORPUSCULAR VOLUME 83 fL (79-100); MONO # 0.6 x10^3/uL (0.0-1.1); MONO % 4 % (0-9); NEUT # 10.3 x10^3/uL (1.8-7.7); NEUT % 78 % (31-73); PLATELET COUNT 282 x10^3/uL (140-400); RED BLOOD COUNT 3.21 x10^6/uL (3.50-5.40); RED CELL DISTRIBUTION WIDTH 13.8 % (11.5-14.5); WHITE BLOOD COUNT 13.1 x10^3/uL (4.0-11.0)
[2020-11-29 08:53] LABS: CALCIUM 8.5 mg/dL (8.5-10.1); GFR 15.8; POTASSIUM 3.3 mmol/L (3.5-5.1)
[2020-11-29] MEDS: LACTOBACILLUS RHAMNOSUS GG 1 CAPSULE. PO SCH (09:41)
[2020-11-29] MEDS: LINAGLIPTIN 5 MG TABLET PO SCH (09:42)
--- NOTE | 2020-11-29 10:39 | PDOC3 ---
Discharge Summary Date of Admission: Nov 19, 2020 Date of Discharge: Nov 29, 2020 Follow-Up: 3-5 days Admitting Diagnosis comment: Chief Complaint Chief Complaint ===HOSPITAL D/C SUMMARY [facility] DATE OF ADMIT 11-19-20 DATE OF DISCHARGE 11-29-20 CONSULTATIONS, ID, NEPHROLOGY, CARDIOLOGY COMPLICATIONS NONE D/C CONDITION GOOD F/U WITH NEPHROLOGY , ID 1-2 WEEKS PROCEDURES ECHO D/W DR SHAH 11-29, AGREES WITH D/C PLAN Chest pain - likely GERD, but with pericardial effusion on CT, consult cardiology, check echo ALBERTO - likely vasomotor nephropathy. Nephrology consulted. Bladder scan prn, strict I?O . No casts reported in UA, Check Pr/Cr Abnormal UA - with LE, WBCs, left sided stranding, likely pyelonephritis, will give rocephin. IVF. Pain control Hematuria - No renal or ureteral calculi. Likely from UTI, will monitor Right renal lesion at the upper pole of the right kidney measuring 1.6 cm - informed follow up necessary Uncontrolled DM - sliding scale, will hold oral hypoglycemic agents for ALBERTO Anemia -likely of chronic disease HTN - prn antihypertensives Pericardial effusion- moderate reported on CT . Consult cardiology Leukocytosis - with tachycardia, will treat sepsis from UTI HYPERTENSION, SUBOPTIMAL CONTROL PLAN FEN - ADA diet PPX - heparin FULL CODE Dispo - inpatient INCREASE NORVASC CR SLOWLY IMPROVING NO STEROIDS OR CYTOXAN GIVEN COVID 19 IF IMPROVED 11-29 OK TO D/C FROM RENAL STANDPOINT UPDATED PT AND DAUGHTER D/W RN D/C PLANNING 35 MIN History of Present Illness History of Present Illness hpi Ms Ledesma is a 64 yo khmer speaking female w/ PMHx HTN, HLD, DM2 who presents to ED C/O chest pressure 3/10 substernal, no radiation while she was laying down on 11/18/20 in the evening. She awoke on 11/19 and it persisted with associated heaviness. She came to ED at the insistence of her family. Patient notes that the pain resolved today but she felt uneasy sensation and heaviness in her chest Denies any nausea, vomiting, fever, chills, shortness of breath or dizziness. No fever or chills. Denies cough, hemoptysis. Does not use NSAIDs, and has been following with [facility] and recently has a new PCP, she is also on Metformin and Losartan. No history of renal disease to her knowledge but does note a "spot" on her right kidney she has been told about. Patient also states her urine has been darker then normal for the last 2 weeks, no specific dysuria. Noted in ED with lab abnormalities with WBC 18.3, Hb 10.4, platelets 283, NA 13 0, K4.1, BUN 41, CR 3.3, glucose 118, lipase 0, troponin 0, procalcitonin 0. UA with large blood and positive leukocyte esterase. EKG normal sinus rhythm with a leftward axis. Chest radiograph with increased lung markings. CT abdomen/pelvis mild stranding adjacent to the left renal pelvis, no renal or ureteral calculi. No evidence for obstructive uropathy. Vague mildly hyperattenuating lesion at the upper pole of the right kidney measuring 1.6 cm. Further evaluation with nonemergent/outpatient renal protocol CT or MRI is recommended. Moderate-sized Pericardial effusion noted on CT, confirmed on echocardiogram. Consults; nephrology and cardiology 11/21: Chest pressure resolved. Good UOP. Cr at 4. D/w family and nephrology the renal biopsy may be indicated this week. JOB, ANCA, Anti-GBM pending 11/22: Afebrile. CR 4.3 and BUN up to 44, phosphorus 5.1. Still with microscopic hematuria. Discussed with nephrology and patient and family via general counsel it is important to undergo renal biopsy today to have plan for further treatment and also prepare for dialysis. 11/23: Patient COVID-19 positive, breathing on room air. Afebrile. No acute events overnight. BUN/creatinine slightly improved, 39/3.9. Renal biopsy yesterday, pathology pending. Temporary dialysis catheter placed. Initiate HD per nephrology. 11/24: Patient seen and evaluated. He is afebrile, denies shortness of breath, breathing on room air. Awaiting renal biopsy results. 11/25: COVID-19 positive, breathing room air. Creatinine 3.5, continues to impr ove. Await renal biopsy results. 11/26: No acute events overnight. Renal biopsy is pending. COVID +, afebrile, breathing room air. Creatinine continues to slowly improve, 3.2 today. Potassium 3.7. 11/27 BP elevated norvasc increased , fever last pm, , now on iv cefepime, ID CONSULT D/W RN 11-29 D/W DR SHAH, OK TO D/C TODAY Vitals Vitals Vital Signs Date Time Temp Pulse Resp B/P (MAP) Pulse Ox O2 Delivery O2 Flow Rate FiO2 11/29/20 03:22 98.2 79 20 153/75 (101) 98 Room Air 98.2 Physical Exam General: Alert, Oriented X3, Cooperative, No acute distress Heart: Regular rate, Normal S1, Normal S2, Other (distant heart tones ) Lungs: Clear Abdomen: Normal bowel sounds, Soft Extremities: No clubbing, No cyanosis, Other (1+ bilateral LE edema ) Skin: No rashes, No significant lesion FINAL DIAGNOSIS Problems Medical Problems: (1) Acute kidney failure Status: Acute Brief Hospital Course Ms. Boone is a 64 old [sex] who presented with [ACUTE RENAL INJURY ] CONDITION AT DISCHARGE: Improved Discharge Medications Current Medications Ceftriaxone Sodium (Rocephin) 1 gm 1X ONCE IVP Last administered on 11/19/20at 14:44; Start 11/19/20 at 14:45; Stop 11/19/20 at 14:46; Status DC Morphine Sulfate (Morphine Sulfate) 4 mg 1X ONCE IV ; Start 11/19/20 at 14:45; Stop 11/19/20 at 14:46; Status DC Sodium Chloride 1,000 ml @ 1,000 mls/hr 1X ONCE IV Last administered on 11/19/20at 14:44; Start 11/19/20 at 14:45; Stop 11/19/20 at 15:44; Status DC Sodium Chloride 1,000 ml @ 1,000 mls/hr 1X ONCE IV Last administered on 11/19/20at 14:44; Start 11/19/20 at 14:45; Stop 11/19/20 at 15:44; Status DC Ondansetron HCl (Zofran) 4 mg PRN Q8HRS PRN IV NAUSEA/VOMITING; Start 11/19/20 at 17:15; Stop 11/20/20 at 17:14; Status DC Morphine Sulfate (Morphine Sulfate) 2 mg PRN Q2HR PRN IV PAIN; Start 11/19/20 at 17:15; Stop 11/20/20 at 17:14; Status DC Insulin Human Lispro (HumaLOG) 0-7 UNITS TIDWMEALS SQ Last administered on 11/25/20at 17:02; Start 11/20/20 at 17:00 Dextrose (Dextrose 50%-Water Syringe) 12.5 gm PRN Q15MIN PRN IV SEE COMMENTS; Start 11/20/20 at 14:00 Ceftriaxone Sodium (Rocephin) 1 gm Q24H IVP Last administered on 11/25/20at 15:32; Start 11/20/20 at 16:00; Stop 11/26/20 at 14:19; Status DC Levothyroxine Sodium (Synthroid) 137 mcg DAILY06 PO Last administered on 11/29/20at 06:06; Start 11/21/20 at 06:00 Linagliptin (Tradjenta) 5 mg DAILY PO Last administered on 11/29/20at 09:42; S tart 11/21/20 at 09:00 Sodium Chloride 1,000 ml @ 75 mls/hr [id number] IV Last administered on 11/29/20at 06:11; Start 11/21/20 at 11:30 Lactobacillus Rhamnosus (Culturelle) 1 cap BID PO Last administered on 11/29/20at 09:41; Start 11/21/20 at 21:00 Lidocaine HCl (Buffered Lidocaine 1%) 3 ml STK-MED ONCE .ROUTE ; Start 11/22/20 at 14:08; Stop 11/22/20 at 14:08; Status DC Gelatin (Gelfoam Size 12-7mm) 1 each STK-MED ONCE .ROUTE ; Start 11/22/20 at 14:09; Stop 11/22/20 at 14:09; Status DC Amlodipine Besylate (Norvasc) 5 mg DAILY PO Last administered on 11/27/20at 07:56; Start 11/23/20 at 09:00; Stop 11/27/20 at 13:20; Status DC Amlodipine Besylate (Norvasc) 5 mg 1X ONCE PO Last administered on 11/22/20at 16:23; Start 11/22/20 at 14:15; Stop 11/22/20 at 14:16; Status DC Midazolam HCl (Versed) 2 mg STK-MED ONCE .ROUTE ; Start 11/22/20 at 14:15; Stop 11/22/20 at 14:15; Status DC Fentanyl Citrate (Fentanyl 2ml Vial) 100 mcg STK-MED ONCE .ROUTE ; Start 11/22/20 at 14:15; Stop 11/22/20 at 14:15; Status DC Flumazenil (Romazicon) 0.5 mg STK-MED ONCE IV ; Start 11/22/20 at 14:15; Stop 11/22/20 at 14:15; Status DC Naloxone HCl (Narcan) 0.4 mg STK-MED ONCE .ROUTE ; Start 11/22/20 at 14:15; Stop 11/22/20 at 14:16; Status DC Lidocaine HCl (Buffered Lidocaine 1%) 18 ml 1X ONCE INJ Last administered on 11/22/20at 15:17; Start 11/22/20 at 14:30; Stop 11/22/20 at 14:32; Status DC Hydralazine HCl (Apresoline Inj) 10 mg 1X ONCE IVP Last administered on 11/22/20at 15:04; Start 11/22/20 at 15:00; Stop 11/22/20 at 15:01; Status DC Midazolam HCl (Versed) 2 mg 1X ONCE IV Last administered on 11/22/20at 14:30; Start 11/22/20 at 15:30; Stop 11/22/20 at 15:32; Status DC Fentanyl Citrate (Fentanyl 2ml Vial) 100 mcg 1X ONCE IV Last administered on 11/22/20at 14:30; Start 11/22/20 at 15:30; Stop 11/22/20 at 15:32; Status DC Gelatin (Gelfoam Size 12-7mm) 1 each 1X ONCE TP Last administered on 11/22/20at 14:50; Start 11/22/20 at 15:30; Stop 11/22/20 at 15:32; Status DC Acetaminophen (Tylenol) 650 mg PRN Q6HRS PRN PO MILD PAIN / TEMP > 100.3'F Last administered on 11/25/20at 09:08; Start 11/22/20 at 21:30 Psyllium Hydrophilic Mucilloid (Metamucil Fiber Packet) 1 pkt QHS PO Last administered on 11/28/20at 21:19; Start 11/23/20 at 21:00 Polyethylene Glycol (miraLAX PACKET) 17 gm 1X ONCE PO Last administered on 11/23/20at 21:40; Start 11/23/20 at 18:30; Stop 11/23/20 at 18:31; Status DC Polyethylene Glycol (miraLAX PACKET) 17 gm PRN DAILY PRN PO CONSTIPATION; Start 11/23/20 at 18:30 Bisacodyl (Dulcolax Supp) 10 mg PRN DAILY PRN WI CONSTIPATION; Start 11/23/20 at 18:30 Calcium Carbonate/ Glycine (Tums) 500 mg PRN AFTMEALHC PRN PO INDIGESTION Last administered on 11/28/20at 21:37; Start 11/23/20 at 23:30 Potassium Chloride (Klor-Con) 40 meq 1X ONCE PO Last administered on 11/25/20at 15:31; Start 11/25/20 at 15:00; Stop 11/25/20 at 15:06; Status DC Sodium Chloride (Saline Mist Nasal) 1 parris PRN Q1HR PRN NS NASAL CONGESTION Last administered on 11/25/20at 21:25; Start 11/25/20 at 20:30 Heparin Sodium (Porcine) (Heparin Sodium) 5,000 unit Q8HRS SQ Last administered on 11/29/20at 06:07; Start 11/26/20 at 11:00 Cefepime HCl (Maxipime) 1 gm Q24H IVP Last administered on 11/27/20at 16:46; Start 11/26/20 at 16:00; Stop 11/28/20 at 10:29; Status DC Metoprolol Tartrate (Lopressor Vial) 5 mg PRN Q6HRS PRN IVP HYPERTENSION Last administered on 11/28/20at 14:19; Start 11/26/20 at 23:30 Amlodipine Besylate (Norvasc) 5 mg BID PO Last administered on 11/29/20at 09:42; Start 11/27/20 at 13:30 Active Scripts Active Reported Hydrochlorothiazide Tablet (Hydrochlorothiazide) 25 Mg Tablet 25 Mg PO DAILY Januvia (Sitagliptin Phosphate) 25 Mg Tablet 25 Mg PO DAILY Levothyroxine Sodium 137 Mcg Tablet 1 Tab PO DAILY Losartan Potassium 100 Mg Tablet 100 Mg PO DAILY Metformin Hcl 1,000 Mg Tablet 1,000 Mg PO BIDWMEALS Vital Signs Vital Signs Date Time Temp Pulse Resp B/P (MAP) Pulse Ox O2 Delivery O2 Flow Rate FiO2 11/29/20 09:42 69 158/84 11/29/20 07:00 97.1 17 99 Room Air 97.1 Labs Laboratory Tests Test 11/27/20 11:12 11/27/20 16:27 11/27/20 20:10 11/28/20 07:18 Glucose (Fingerstick) 137 mg/dL (70-99) 119 mg/dL (70-99) 167 mg/dL (70-99) 128 mg/dL (70-99) Test 11/28/20 08:01 11/28/20 10:27 11/28/20 16:39 11/28/20 20:47 White Blood Count 14.0 x10^3/uL (4.0-11.0) Red Blood Count 3.16 x10^6/uL (3.50-5.40) Hemoglobin 8.5 g/dL (12.0-15.5) Hematocrit 26.2 % (36.0-47.0) Mean Corpuscular Volume 83 fL (79-100) Mean Corpuscular Hemoglobin 27 pg (25-35) Mean Corpuscular Hemoglobin Concent 33 g/dL (31-37) Red Cell Distribution Width 13.9 % (11.5-14.5) Platelet Count 284 x10^3/uL (140-400) Neutrophils (%) (Auto) 79 % (31-73) Lymphocytes (%) (Auto) 13 % (24-48) Monocytes (%) (Auto) 4 % (0-9) Eosinophils (%) (Auto) 4 % (0-3) Basophils (%) (Auto) 1 % (0-3) Neutrophils # (Auto) 11.0 x10^3/uL (1.8-7.7) Lymphocytes # (Auto) 1.8 x10^3/uL (1.0-4.8) Monocytes # (Auto) 0.6 x10^3/uL (0.0-1.1) Eosinophils # (Auto) 0.5 x10^3/uL (0.0-0.7) Basophils # (Auto) 0.1 x10^3/uL (0.0-0.2) Sodium Level 141 mmol/L (136-145) Potassium Level 3.3 mmol/L (3.5-5.1) Chloride Level 107 mmol/L (98-107) Carbon Dioxide Level 21 mmol/L (21-32) Anion Gap 13 (6-14) Blood Urea Nitrogen 35 mg/dL (7-20) Creatinine 2.9 mg/dL (0.6-1.0) Estimated GFR (Cockcroft-Gault) 16.4 Glucose Level 134 mg/dL (70-99) Calcium Level 8.3 mg/dL (8.5-10.1) Glucose (Fingerstick) 141 mg/dL (70-99) 107 mg/dL (70-99) 137 mg/dL (70-99) Test 11/29/20 08:05 11/29/20 08:08 White Blood Count 13.1 x10^3/uL (4.0-11.0) Red Blood Count 3.21 x10^6/uL (3.50-5.40) Hemoglobin 8.7 g/dL (12.0-15.5) Hematocrit 26.7 % (36.0-47.0) Mean Corpuscular Volume 83 fL (79-100) Mean Corpuscular Hemoglobin 27 pg (25-35) Mean Corpuscular Hemoglobin Concent 33 g/dL (31-37) Red Cell Distribution Width 13.8 % (11.5-14.5) Platelet Count 282 x10^3/uL (140-400) Neutrophils (%) (Auto) 78 % (31-73) Lymphocytes (%) (Auto) 14 % (24-48) Monocytes (%) (Auto) 4 % (0-9) Eosinophils (%) (Auto) 3 % (0-3) Basophils (%) (Auto) 1 % (0-3) Neutrophils # (Auto) 10.3 x10^3/uL (1.8-7.7) Lymphocytes # (Auto) 1.8 x10^3/uL (1.0-4.8) Monocytes # (Auto) 0.6 x10^3/uL (0.0-1.1) Eosinophils # (Auto) 0.4 x10^3/uL (0.0-0.7) Basophils # (Auto) 0.1 x10^3/uL (0.0-0.2) Sodium Level 141 mmol/L (136-145) Potassium Level 3.3 mmol/L (3.5-5.1) Chloride Level 106 mmol/L (98-107) Carbon Dioxide Level 22 mmol/L (21-32) Anion Gap 13 (6-14) Blood Urea Nitrogen 32 mg/dL (7-20) Creatinine 3.0 mg/dL (0.6-1.0) Estimated GFR (Cockcroft-Gault) 15.8 Glucose Level 109 mg/dL (70-99) Calcium Level 8.5 mg/dL (8.5-10.1) Glucose (Fingerstick) 92 mg/dL (70-99) Laboratory Tests Test 11/28/20 16:39 11/28/20 20:47 11/29/20 08:05 11/29/20 08:08 Glucose (Fingerstick) 107 mg/dL (70-99) 137 mg/dL (70-99) 92 mg/dL (70-99) White Blood Count 13.1 x10^3/uL (4.0-11.0) Red Blood Count 3.21 x10^6/uL (3.50-5.40) Hemoglobin 8.7 g/dL (12.0-15.5) Hematocrit 26.7 % (36.0-47.0) Mean Corpuscular Volume 83 fL (79-100) Mean Corpuscular Hemoglobin 27 pg (25-35) Mean Corpuscular Hemoglobin Concent 33 g/dL (31-37) Red Cell Distribution Width 13.8 % (11.5-14.5) Platelet Count 282 x10^3/uL (140-400) Neutrophils (%) (Auto) 78 % (31-73) Lymphocytes (%) (Auto) 14 % (24-48) Monocytes (%) (Auto) 4 % (0-9) Eosinophils (%) (Auto) 3 % (0-3) Basophils (%) (Auto) 1 % (0-3) Neutrophils # (Auto) 10.3 x10^3/uL (1.8-7.7) Lymphocytes # (Auto) 1.8 x10^3/uL (1.0-4.8) Monocytes # (Auto) 0.6 x10^3/uL (0.0-1.1) Eosinophils # (Auto) 0.4 x10^3/uL (0.0-0.7) Basophils # (Auto) 0.1 x10^3/uL (0.0-0.2) Sodium Level 141 mmol/L (136-145) Potassium Level 3.3 mmol/L (3.5-5.1) Chloride Level 106 mmol/L (98-107) Carbon Dioxide Level 22 mmol/L (21-32) Anion Gap 13 (6-14) Blood Urea Nitrogen 32 mg/dL (7-20) Creatinine 3.0 mg/dL (0.6-1.0) Estimated GFR (Cockcroft-Gault) 15.8 Glucose Level 109 mg/dL (70-99) Calcium Level 8.5 mg/dL (8.5-10.1) Allergies Allergies Coded Allergies Type Severity Reaction Last Updated Verified No Known Drug Allergies 11/19/20 No Disposition/Orders: D/C to Home Justicifation of Admission Dx: Justifications for Admission: Justification of Admission Dx: Yes Acute Renal Failure: 3-Fold Rise in Serum Crea OTTONIEL THOMAS MD Nov 29, 2020 10:39
[2020-11-29] MEDS ORDERED: CALC200T23 PO (10:43)
[2020-11-29] MEDS ORDERED: LACT1CAP19 PO (10:43)
[2020-11-29] MEDS ORDERED: SODI44SP NS (10:43)
[2020-11-29] MEDS ORDERED: AMLO-186 PO (10:43)
[2020-11-29] MEDS ORDERED: INSU100V35 SQ (10:43)
[2020-11-29] MEDS ORDERED: POLY17PO52 PO (10:43)
--- NOTE | 2020-11-29 10:44 | DISCH ---
DISCHARGE INSTRUCTIONS Condition on Discharge Condition on Discharge: Stable Activity After Discharge Activity Instructions for Disc: Activity as tolerated Driving Instructions after Dis: Do not drive today Diet after Discharge Diet after Discharge: Cardiac Liquid Texture: Thin Liquid Checks after Discharge Checks after discharge: Check blood press - daily Contacting the DR. after DC Call your doctor for: If your condition worsens Follow-Up Follow up with: NEPHROLOGY 2 WEEKS,, PCP NEXT WEEK Treatment/Equipment after DC Adaptive Equipment Issued: None OTTONIEL THOMAS MD Nov 29, 2020 10:44
[2020-11-29 11:00] VITALS: BP 146/78
--- NOTE | 2020-11-29 14:00 | NUR ---
temp cath removed. pressure applied X 2 minutes w/ no bleeding after. iv removed, cath intact. meds and follow up reviewed w/daughter over the phone as pt is [place]. pt stable upon dc.
--- NOTE | 2020-11-29 15:07 | NUR ---
SW following for discharge planning. Spoke with RN and reviewed chart. Pt discharged home today, 11/29 self-care on oral medications and room air. No further SW needs at this time.
--- NOTE | 2020-12-01 10:51 | RAD ---
Ultrasound-guided renal biopsy November 22, 2020 Discussion: Renal failure, uncertain etiology ALBERTO , DM , Micr hematuria, Neph Proteinuria , baseline Cr norm,anemia, no M Discussion: The procedure was explained in its entirety to the patient or the patients designated district sales representative by a member of the treatment team, including a discussion of the risks, benefits and commonly accepted alternatives to the procedure, as well as the expected consequences of no therapy whatsoever. Discussion of the risks included, but was not limited to, those that are most frequent and those that are rare but possibly severe or life-threatening, as well as the possibility of unforeseen complications. All elements of maximal sterile barrier technique including the use of a cap, mask, sterile gown, sterile gloves, large sterile sheet, appropriate hand hygiene, and 2% chlorhexidine for cutaneous antisepsis (or acceptable alternative antiseptic per current guidelines) were followed for this procedure. The patient was placed in the prone position. Ultrasound evaluation delineated the left kidney. 1% lidocaine was administered for local anesthesia. A guiding needle was advanced to the posterior lateral, inferior renal cortex. Core biopsy samples were obtained. Gelfoam embolization was performed as a guiding needle was removed. Manual pressure was held. Repeat ultrasound demonstrated no immediate complication. Impression The procedures performed under conscious sedation including continuous cardiopulmonary monitoring via dedicated sedation nurse. [id number] sedation time: 50 minutes Impression: Ultrasound-guided kidney biopsy as described
== END 2020-11-29 14:00 | disposition home or self-care (01) | DRG 177 ==
LOC: ER 13:30 → 5 NORTH 18:14 → 6 SOUTH 11-22 13:00
PROVIDERS: ADMIT Family Medicine; ATTEND Family Medicine
PROC: 02HV33Z Insertion of Infusion Device into Superior Vena Cava, Percutaneous Approach (ICD-10-PCS; principal; 2020-11-22)
PROC: B548ZZA Ultrasonography of Superior Vena Cava, Guidance (ICD-10-PCS; 2020-11-22)
PROC: 0TB13ZX Excision of Left Kidney, Percutaneous Approach, Diagnostic (ICD-10-PCS; 2020-11-22)
DX: U07.1 COVID-19 (principal); A41.89 Other specified sepsis; N17.0 Acute kidney failure with tubular necrosis; I31.3 Pericardial effusion (noninflammatory); N02.8 Recurrent and persistent hematuria with other morphologic changes; N12 Tubulo-interstitial nephritis, not specified as acute or chronic; D63.8 Anemia in other chronic diseases classified elsewhere; E03.9 Hypothyroidism, unspecified; E11.22 Type 2 diabetes mellitus with diabetic chronic kidney disease; E11.65 Type 2 diabetes mellitus with hyperglycemia; E66.9 Obesity, unspecified; E78.5 Hyperlipidemia, unspecified; I16.0 Hypertensive urgency; K21.9 Gastro-esophageal reflux disease without esophagitis; I10 Essential (primary) hypertension; F41.9 Anxiety disorder, unspecified; M19.90 Unspecified osteoarthritis, unspecified site; R07.89 Other chest pain; Z68.34 Body mass index [BMI] 34.0-34.9, adult; Z83.3 Family history of diabetes mellitus; Z90.710 Acquired absence of both cervix and uterus
CPT/HCPCS: 36415; 36556; 50200; 71045; 74150; 76937; 76942; 80048; 80053; 80061; 80069; 81001; 82550; 82570; 82728; 82962; 83516; 83520; 83540; 83550; 83605; 83690; 83735; 84145; 84156; 84443; 84484; 85007; 85018; 85025; 85027; 85610; 85730; 86038; 86140; 86256; 86317; 87040; 87340; 87426; 88300; 89050; 93005; 93306; 96361; 96374; 99152; 99153; C1892; J0360; J0692; J0696; J1644; J1815; J2250; J3010; J3490; J7030; 99285-25; G0378